=== PATIENT | female | born 1935 | race Hispanic/Latino ===

== ENCOUNTER 2017-04-18 12:01 | Emergency (ER) | payer BC, OTHER ==
[~2017-04-18] VITALS: Ht 157.5 cm; Wt 73.5 kg
[~2017-04-18 12:01] MED LIST: BLOOD PRESSURE PO; METOPROLOL TART25 MG PO; NIFEDIPINE ER30 M1 PO; OMEPRAZOLE40 MG PO; Z NIFEDIPINE PO; Z.0.METOPROLOL TART5 PO; Z.0.OMEPRAZOLE20 M1 PO; Z.0.PENTOXIFYLLINE40 PO; Z.0.SIMVASTATIN40 MG PO
[2017-04-18] MEDS ORDERED: NIFEDIPINE 10 MG CAP SL ONE (12:30)
[2017-04-18] MEDS ORDERED: ONDANSETRON HCL 4 MG ORAL DISINTEGRATING TAB PO ONE (12:30)
--- NOTE | 2017-04-18 13:51 | Diagnostic Imaging Report ---
History:Left-sided headaches Comparison studies:None Technique: Axial images were obtained from the skull base to the vertex. Coronal and sagittal images reconstructed from the axial data. Intravenous contrast: None Findings: Scalp/skull: No abnormalities. Extra-axial spaces: No masses. No fluid collections. Brain sulci: Age-appropriate. Ventricles: Age-appropriate. No hydrocephalus. Parenchyma: Few hypodensities in the supratentorial white matter are small vessel ischemic changes. No masses, hemorrhage, acute or chronic cortical vascular insults. 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 Sellar/suprasellar region: No abnormalities. Craniocervical junction: Patent foramen magnum. No Chiari one malformation. Incidental findings: Atherosclerotic calcifications in the carotid siphons and vertebral arteries. Impression: No acute abnormalities. Chronic findings: 1. Mild supratentorial white matter small vessel ischemic changes. Signed by: DR Richie Wilson M.D. on 04/18/2017 1:47 PM
[2017-04-18 14:36] VITALS: BP 147/81
== END 2017-04-18 14:40 | disposition home or self-care (01) ==
LOC: ER 12:01
DX: G44.89 Other headache syndrome (principal); I10 Essential (primary) hypertension; I73.9 Peripheral vascular disease, unspecified; K21.9 Gastro-esophageal reflux disease without esophagitis
CPT/HCPCS: 70450; 99283

== ENCOUNTER 2018-07-16 10:43 | Emergency (ER) | payer MEDICARE ==
[~2018-07-16] VITALS: Ht 157.5 cm; Wt 68.0 kg
--- OUTSIDE RECORDS SUMMARY | 2018-07-16 10:46 | XMS REPORT | Summary of Care ---
Author Organization Unknown Address Unknown Phone Unavailable Encounter HQ Encntr_maldonadolefty(MAGALI) [id number] Date(s): 12/31/13 - 12/31/13 [facility] [address] Discharge Disposition: Home Physician Attending: Dionte Whipple MD Physician_Referring: Dionte Whipple MD Reason for Visit LLE DX:443.90 - PERIPHERAL VASCULAR DISEASE Problem List No data available for this section Allergies, Adverse Reactions, Alerts Substance Reaction Severity Status penicillins Active Medications No data available for this section Medications Administered During Your Visit No data available for this section Immunizations No data available for this section
--- OUTSIDE RECORDS SUMMARY | 2018-07-16 10:46 | XMS REPORT | Summary of Care ---
Author Author [facility] [place] Organization [facility] [place] Address Unknown Phone Unavailable Encounter HQ Encntr_alias(FIN) [id number] Date(s): 02/22/16 - 02/22/16 [facility] [place] [address] [place] [address] 7 [phone] Discharge Disposition: Home or Self Care Attending Physician: Dionte Whipple MD Vital Signs No data available for this section Problem List No data available for this section Allergies, Adverse Reactions, Alerts Substance Reaction Severity Status penicillins Active Medications No data available for this section Results No data available for this section Immunizations No data available for this section Procedures No data available for this section Social History No data available for this section Assessment and Plan No data available for this section
--- OUTSIDE RECORDS SUMMARY | 2018-07-16 10:46 | XMS REPORT ---
Author Author [facility] Address Unknown Phone Unavailable Care Team Providers Care Lead Warehouse Associate Name Role Phone NIKHILJOSEGutierrezIAN Unavailable Unavailable Problems This patient has no known problems. Allergies, Adverse Reactions, Alerts This patient has no known allergies or adverse reactions. Medications This patient has no known medications. Results Test Description Test Time Test Comments Text Results Atomic Results Result Comments CT BRAIN WO [place] [address] Patient Name: PAULINA FOWLER MR #: [id number] : 1935 Age/Sex: 81/F Req #: [id number] Adm Physician: Ordered by: FATOU TOMPKINS BANQUET LEAD Report #: [id number] Location: ER Room/Bed: Procedure: [id number] CT/CT BRAIN WO Exam Date: 04/18/17 Exam Time: 1300 REPORT STATUS: Signed History:Left-sided headaches Comparison studies:None Technique: Axial images were obtained from the skull base to the vertex. Coronal and sagittal images reconstructed from the axial data. Intravenous contrast: None Findings: Scalp/skull: No abnormalities. Extra-axial spaces: No masses. No fluid collections. Brain sulci: Age-appropriate. Ventricles: Age-appropriate. No hydrocephalus. Parenchyma: Few hypodensities in the supratentorial white matter are small vessel ischemic changes. No masses, hemorrhage, acute or chronic cortical vascular insults. 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 Sellar/suprasellar region: No abnormalities. Craniocervical junction: Patent foramen magnum. No Chiari one malformation. Incidental findings: Atherosclerotic calcifications in the carotid siphons and vertebral arteries. Impression: No acute abnormalities. Chronic findings: 1. Mild supratentorial white matter small vessel ischemic changes. Signed by: DR Richie Wilson M.D. on 04/18/2017 1:47 PM Dictated By: RICHIE VELASQUEZ MD 1347 Transcribed By: KRISTA on 04/18/17 1347 COPY TO: FATOU TOMPKINS NP
--- OUTSIDE RECORDS SUMMARY | 2018-07-16 10:46 | XMS REPORT | Continuity of Care Document ---
Author Author [facility] Address Unknown Phone Unavailable Problems Problem Status Onset Date Classification Date Reported Comments Source J40 - BRONCHITIS, NOT SPECIFIED A Active 03/11/2018 [facility] [place] M81.0 - AGE-RELATED OSTEOPOROSIS W/O C Active 06/14/2017 [facility] [place] R07.9 - "CHEST PAIN, UNSPECIFIED" Active 01/27/2015 [facility] [place] LLE DX:443.90 - PERIPHERAL VASCULAR DIS Active 12/31/2013 [facility] V76.12 - SCREEN MAMMOGRA Active 07/05/2012 [facility] [place] Chest wall pain Active Problem 04/18/2017 [facility] Medications Medication Details Route Status Patient Instructions Ordering Provider Order Date Source Blood Pressure , Oral Daily Active 03/20/2014 [facility] Metoprolol Tartrate 50 Mg Tablet, 50 Mg Oral Twice A Day Active 03/20/2014 [facility] Nifedipine (Nifedipine Er) 60 Mg Tab.osm.24, 60 Mg Oral Daily Active 03/20/2014 [facility] Omeprazole 40 Mg Capsule.dr, 5 Mg Oral Daily Active 03/20/2014 [facility] Metoprolol Tartrate 25 Mg Tablet Bedtime Active [facility] Nifedipine (Nifedipine Er) 30 Mg Tab.er.24 Daily Active [facility] Omeprazole 20 Mg Tablet.dr Daily Active [facility] Pentoxifylline 400 Mg Tablet.sa Three Times A Day Active [facility] Simvastatin 40 Mg Tablet Daily Active [facility] Allergies, Adverse Reactions, Alerts Substance Category Reaction Severity Reaction type Status Date Reported Comments Source Penicillin TREMBLING,MOUTH LAUREANO Mild Allergy to Substance Active 04/18/2017 [facility] Lisinopril Cough Unknown Allergy to Substance Active 04/18/2017 [facility] penicillins Assertion Drug allergy Active [facility] Andersen Immunizations Immunization Date Given Site Status Last Updated Comments Source Results Order Name Results Value Reference Range Date Interpretation Comments Source Spine cervical series DX Spine cervical series DX EXAM: Spine cervical series DX HISTORY: - S13.9XXA Sprain of joints and ligaments of unspecified parts of neck, initial encounter COMPARISON: None AP, lateral and odontoid views of the cervical spine in addition to oblique views. FINDINGS: Slight anterolisthesis of C4 on C5. Prevertebral soft tissues are normal. There are moderate uncovertebral degenerative changes. IMPRESSION: Degenerative changes as above with Slight anterolisthesis of C4 on C5. 06/12/2018 - - Read by: Casimiro Oh MD Dictated Date/time: 06/12/18 13:37 Electronically Signed by: Casimiro Oh MD 06/12/18 13:42 FINAL REPORT SKYLAR Andersen Chest 2 views DX Chest 2 views DX Exam: Two-view chest x-ray Reason for Exam: - J40 Bronchitis, not specified as acute or chronic Comparison Exam: X-ray 02/22/2016 and 03/06/2014 Discussion: Cardiomediastinal silhouette is within normal limits. Both hemidiaphragms well visualized. No pulmonary edema or pleural effusions. Mild atelectasis seen within the lung bases. Trachea is midline. No acute bony abnormalities. Impression: 1. Mild atelectasis seen within the lung bases. 03/11/2018 - - Read by: Kane Ziegler MD Dictated Date/time: 03/11/18 13:18 Electronically Signed by: Kane Ziegler MD 03/11/18 13:21 FINAL REPORT MAG[facility] Andersen Ribs unilateral DX Ribs unilateral DX EXAMINATION: Right ribs unilateral HISTORY: T14.8 Other injury of unspecified body region; anterior and lateral right-sided chest wall pain status post fall FINDINGS: 4 views of the right ribs are performed and compared to left rib and chest radiographs dated 01/27/2015. There are no displaced right-sided rib fractures. There is no right pleural effusion or right-sided pneumothorax. There is atherosclerotic calcification of the aorta. IMPRESSION: 1. No displaced right-sided rib fractures. 2. Atherosclerotic thoracic aorta. 02/22/2016 - - Read by: Franko House MD Dictated Date/time: 02/22/16 11:11 Electronically Signed by: Franko House MD 02/22/16 11:14 FINAL REPORT MAGUE Ganesh Spine lumbar series DX Spine lumbar series DX EXAMINATION: Lumbar spine series HISTORY: W19.XXXA Unspecified fall, initial encounter, T14.8 Other injury of unspecified body region; low back pain status post fall; lumbar facet osteoarthritis FINDINGS: Frontal, lateral, bilateral oblique, and coned views of the lumbar spine are performed without comparison. There is diffuse osteopenia. There is no listhesis of the lumbar spine. The vertebral body heights are normal without compression fracture. There is advanced bilateral lower lumbar facet osteoarthritis, but relatively preserved intervertebral disc spaces. The sacral ala appear intact. There is atherosclerotic calcification of the aorta. IMPRESSION: 1. Advanced bilateral lower lumbar facet osteoarthritis. 2. Diffuse osteopenia of the lumbar spine without compression fracture identified. 3. Atherosclerotic abdominal aorta. 02/22/2016 - - Read by: Franko House MD Dictated Date/time: 02/22/16 11:23 Electronically Signed by: Franko House MD 02/22/16 11:25 FINAL REPORT MAG[facility] Andersen Retroperitoneal Complete US Retroperitoneal Complete US EXAM: Renal ultrasound. CLINICAL HX: N30.00 Acute cystitis without hematuria. Right pelvic and back pain x2 weeks. . TECHNIQUE: Grayscale and Doppler sonogram of the kidneys. COMPARISON: Abdomen ultrasound: 06/08/2015. FINDINGS: Right kidney: Length: 9.6 cm. Cortical thickness: 0.8 cm. Hydronephrosis: Negative. Echogenicity: Within normal limits. Other: None. Left kidney: Length: 9.9 cm. Cortical thickness: 0.8 cm. Hydronephrosis: Negative. Echogenicity: Within normal limits. Other: Question 1.2 cm upper pole cyst. Urinary bladder: Lumen: Unremarkable. Volume: 126 mL. Ureteral jets: Visualized bilaterally. Aorta: Visualized portions are unremarkable. Common iliac artery origins: Not well evaluated. IVC: Visualized portions are unremarkable. Other: None. IMPRESSION: 1. Mild bilateral renal cortical thinning which is nonspecific but can be seen with medical renal disease. 2. Possible left renal cyst. 02/04/2016 - - Read by: Hipolito Gardner MD Dictated Date/time: 02/04/16 17:22 Electronically Signed by: Hipolito Gardner MD 02/04/16 17:26 FINAL REPORT SKYLAR Andersen Abdomen complete US Abdomen complete US Exam: Abdominal Ultrasound Reason for Exam: R10.11 Right upper quadrant pain Comparison Exam: None Discussion: Multiple axial and sagittal images were obtained of the abdomen. The liver is of normal size and echogenicity. No focal hepatic masses identified. No intrahepatic or extrahepatic biliary duct dilation, with the common bile duct measuring 0.2 cm. 2 mm nonmobile echogenic focus seen within the gallbladder, most compatible with a gallbladder polyp. No gallbladder wall thickening or pericholecystic fluid. Sonographic Goodman's sign is negative. The visualized portions of the pancreatic head and proximal body are within normal limits. The spleen is of normal echogenicity measuring 8.2 cm in length. The visualized portions of the upper abdominal aorta and IVC are unremarkable. No evidence seen for ascites. The right and left kidneys measure 8.6 cm and 9.6 cm respectively. They are of normal echogenicity without focal masses, hydronephrosis, or shadowing renal calculi. Impression: 1. 2 mm nonmobile echogenic focus seen within the gallbladder, most compatible with a gallbladder polyp. No evidence seen to suggest cholecystitis. 06/08/2015 - - Read by: Kane Ziegler MD Dictated Date/time: 06/08/15 11:06 Electronically Signed by: Kane Ziegler MD 06/08/15 11:08 FINAL REPORT SKYLAR Andersen Ribs unilateral 3 views w PA chest DX Ribs unilateral 3 views w PA chest DX CHEST PA AND RIB X-RAY SERIES History: 79-year-old with left rib pain. Comparison: 03/06/2014 and 05/09/2013. Findings: The lungs are expanded and no infiltrate, mass or pleural effusion seen. Left lung linear fine density is stable suggesting atelectasis. The cardiomediastinal structures are within normal limits. The left rib cage appears normal without evidence for a displaced injury or fracture. Moderate spine spondylosis and moderate osteoarthritic changes of the left shoulder noted. IMPRESSION: No acute cardiopulmonary abnormality, stable chest x-ray. The left rib cage is unremarkable. 01/27/2015 - - Read by: Felix Larson MD Dictated Date/time: 01/27/15 13:56 Electronically Signed by: Felix Larson 01/27/15 14:02 FINAL REPORT MAGUE Andersen Chest 2 views Chest 2 views Exam: Two-view chest x-ray Reason for Exam: Essential hypertension Comparison Exam: Chest x-ray 04/11/2013 and 05/07/2012 Discussion: Cardiac silhouette is at the upper limits of normal. Mild central vascular congestion. No appreciable pleural effusion or focal lung consolidations. Both hemidiaphragms well-visualized. Trachea is midline. Scattered spondylosis seen within the thoracic spine Impression: 1. No significant interval change. Mild central vascular congestion. 03/06/2014 - - Read by: Kane Ziegler MD Dictated Date/time: 03/06/14 14:48 Electronically Signed by: Kane Ziegler MD 03/06/14 14:50 FINAL REPORT MAGUE Andersen Ext Lower Venous Doppler Unilat US Ext Lower Venous Doppler Unilat US HISTORY: Unspecified peripheral vascular disease. Left lower extremity venous Doppler ultrasound exam demonstrates normal flow and compressibility within the common femoral, superficial femoral popliteal venous segments. Normal distal augmentation. Greater saphenous vein is not visualized. IMPRESSION: No evidence for left lower extremity DVT. SL:13 12/31/2013 - - Read by: Gavin Mathias MD Dictated Date/time: 12/31/13 14:06 Electronically Signed by: Gavin Mathias MD 12/31/13 14:07 FINAL REPORT [facility] Vital Signs Vital Sign Value Date Comments Source Encounters Location Location Details Encounter Type Encounter Number Reason For Visit Attending Provider ADM Date DC Date Status Source [facility] [id number] Dionte Whipple 12/31/2013 01/01/2014 [facility] [place] [facility] [id number] Dionte Whipple 03/06/2014 03/07/2014 MAGUE Andersen [facility] [place] [facility] [id number] Dionte Whipple 01/27/2015 01/28/2015 [facility] Smitha [facility] [place] [facility] [id number] Dionte Whipple 06/08/2015 06/09/2015 [facility] [place] [facility] [place] [facility] [id number] Dionte Whipple 02/04/2016 02/05/2016 [facility] [place] [facility] [place] [facility] [id number] Dionte Whipple 02/22/2016 02/23/2016 [facility] [place] Departed Emergency Room [id number] DEXTER ZIMMER MD 04/18/2017 04/18/2017 [facility] [place] [facility] [id number] Dionte Whipple 06/12/2018 06/13/2018 [facility] [place] Procedures Procedure Code Date Perfomer Comments Source Computed tomography of brain without radiopaque contrast [id number] 04/18/2017 [facility]
--- OUTSIDE RECORDS SUMMARY | 2018-07-16 10:46 | XMS REPORT | Summary of Care ---
Author Author [facility] [place] Organization [facility] [place] Address Unknown Phone Unavailable Encounter HQ Encntr_alilefty(FIN) [id number] Date(s): 02/04/16 - 02/04/16 [facility] [place] [address] [place] [phone] Discharge Disposition: Home or Self Care Attending [...]
--- OUTSIDE RECORDS SUMMARY | 2018-07-16 10:46 | XMS REPORT | Summary of Care ---
Author Organization Unknown Address Unknown Phone Unavailable Encounter HQ Margyr_eric(MAGALI) [id number] Date(s): 03/06/14 - 03/06/14 [facility] Outpatient Imaging - [address] [address] [place] Discharge Disposition: Home Physician Attending: Dionte Whipple MD Reason for Visit 401.0 - MALIGNANT HYPER Problem List No data available for this section Allergies, Adverse Reactions, Alerts Substance Reaction Severity Status penicillins Active Medications No data available for this section Medications Administered During Your Visit No data available for this section Immunizations No data available for this section
--- OUTSIDE RECORDS SUMMARY | 2018-07-16 10:46 | XMS REPORT | Summary of Care ---
Author Author [facility] [place] Organization [facility] [place] Address Unknown Phone Unavailable Encounter HQ Encntr_alilefty(FIN) [id number] Date(s): 06/12/18 - 06/12/18 [facility] [place] [address] [place] [address] [phone] Discharge Disposition: Home or Self Care Attending Physician: Dionte Whipple MD Referring Physician: Dionte Whipple MD Vital Signs No [...]
--- OUTSIDE RECORDS SUMMARY | 2018-07-16 10:46 | XMS REPORT | Summary of Care ---
Author Author [facility] [place] Organization [facility] [place] Address Unknown Phone Unavailable Encounter HQ Encntr_alias(FIN) [id number] Date(s): 01/27/15 - 01/27/15 [facility] [place] [address] [place] [address]- [facility] [phone] Discharge Disposition: Home Attending Physician: Dionte Whipple MD Vital Signs [...]
--- OUTSIDE RECORDS SUMMARY | 2018-07-16 10:46 | XMS REPORT | Summary of Care ---
Author Author [facility] [place] Organization [facility] [place] Address Unknown Phone Unavailable Encounter HQ Encntr_alias(FIN) [id number] Date(s): 06/08/15 - 06/08/15 [facility] [place] [address] [place] [place] [address] [phone] Discharge Disposition: Home Attending Physician: Dionte Whipple [...]
[2018-07-16] MEDS ORDERED: MORPHINE SULFATE 2 MG/ML SYR 1ML IV STA (11:13)
--- NOTE | 2018-07-16 11:48 | Diagnostic Imaging Report ---
EXAM: CXR 1 VIEW - HOPD, AP DATE: 07/16/2018 Time stamp on exam: 11:25 AM INDICATION: Preoperative COMPARISON: None FINDINGS: LINES/TUBES: None LUNGS: No consolidations or edema. PLEURA: No effusions or pneumothorax. HEART AND MEDIASTINUM: Normal size and contour. Calcification within the aorta. BONES AND SOFT TISSUES: No acute findings. Degenerative changes of the spine. IMPRESSION: No acute thoracic abnormality. Signed by: Dr. Jimmy Dubose DO on 07/16/2018 11:45 AM
--- NOTE | 2018-07-16 12:30 | Diagnostic Imaging Report ---
Exam: AP pelvis and coned-down views of the left hip. History: Status post fall Comparison: None available Findings: The bones are osteopenic. There is a nondisplaced fracture of the inferior pubic rami and a slightly displaced fracture of the superior pubic rami. Joint space narrowing of both hips is present. No hip fracture is identified. Incidental notice is calcification within the abdominal aorta suggesting the possibility of a abdominal aortic aneurysm. Impression: Left superior and inferior pubic rami fractures. Signed by: Dr. Jimmy Dubose DO on 07/16/2018 12:27 PM
[2018-07-16 12:58] VITALS: BP 152/79
[2018-07-16] MEDS ORDERED: BENICAR20 MG PO (20:43)
[2018-07-16] MEDS ORDERED: METOPROLOL SUCC25 MG PO (20:57)
[2018-07-16] MEDS ORDERED: PRESERVISION A1 EACH (20:57)
[2018-07-16] MEDS ORDERED: TRAZODONE HCL50 MG PO (20:57)
[2018-07-16] MEDS ORDERED: [UNRECOGNIZED DRUG - OTHER] (20:57)
[2018-07-16] MEDS ORDERED: LATANOPROST 0.005% OU (20:57)
[2018-07-16] MEDS ORDERED: SERTRALINE HCL50 MG PO (20:57)
[2018-07-16] MEDS ORDERED: BACLOFEN10 MG PO (20:57)
[2018-07-16] MEDS ORDERED: ATORVASTATIN CA20 MG PO (20:57)
[2018-07-16] MEDS ORDERED: [UNRECOGNIZED DRUG - OTHER] PO (20:57)
[2018-07-16] MEDS ORDERED: ALENDRONATE SOD70 MG PO (20:57)
[2018-07-16] MEDS ORDERED: ALPRAZOLAM0.25 MG PO (20:58)
== END 2018-07-16 13:02 | disposition home or self-care (01) ==
LOC: FSED 10:43
DX: S32.592A Other specified fracture of left pubis, initial encounter for closed fracture (principal); W01.0XXA Fall on same level from slipping, tripping and stumbling without subsequent striking against object, initial encounter; Y93.01 Activity, walking, marching and hiking; Y92.007 Garden or yard of unspecified non-institutional (private) residence as the place of occurrence of the external cause; I10 Essential (primary) hypertension; E78.00 Pure hypercholesterolemia, unspecified; Z01.818 Encounter for other preprocedural examination
CPT/HCPCS: 71045; 73502; 80053; 85025; 85610; 99284; J2270

== ENCOUNTER 2018-07-16 16:54 | Inpatient (IN) | payer MEDICARE ==
[~2018-07-16] VITALS: Ht 154.9 cm; Wt 76.9 kg
[2018-07-16] MEDS ORDERED: SODIUM CHLORIDE FLUSH 10 ML SYR INJ PRN (18:00)
[2018-07-16] MEDS ORDERED: ONDANSETRON HCL INJ 2MG/ML 2ML 2 MG/ML VIAL IV PRN (18:00)
[2018-07-16] MEDS: MORPHINE SULFATE INJ 4 MG/ML INJ 1ML IV PRN (18:18)
[2018-07-16 19:00] VITALS: BP 185/87
[2018-07-16 20:15] VITALS: BP 169/78
[2018-07-16 20:40] VITALS: BP 185/87
[2018-07-16] MEDS ORDERED: BENICAR20 MG PO (20:43)
[2018-07-16] MEDS ORDERED: [UNRECOGNIZED DRUG - OTHER] PO (20:57)
[2018-07-16] MEDS ORDERED: [UNRECOGNIZED DRUG - OTHER] (20:57)
[2018-07-16] MEDS ORDERED: BACLOFEN10 MG PO (20:57)
[2018-07-16] MEDS ORDERED: ATORVASTATIN CA20 MG PO (20:57)
[2018-07-16] MEDS ORDERED: LATANOPROST 0.005% OU (20:57)
[2018-07-16] MEDS ORDERED: ALENDRONATE SOD70 MG PO (20:57)
[2018-07-16] MEDS ORDERED: PRESERVISION A1 EACH (20:57)
[2018-07-16] MEDS ORDERED: METOPROLOL SUCC25 MG PO (20:57)
[2018-07-16] MEDS ORDERED: SERTRALINE HCL50 MG PO (20:57)
[2018-07-16] MEDS ORDERED: TRAZODONE HCL50 MG PO (20:57)
[2018-07-16] MEDS ORDERED: ALPRAZOLAM0.25 MG PO (20:58)
[2018-07-17] VITALS (7 sets, daily range): BP systolic 137–156; BP diastolic 63–72
[2018-07-17] MEDS: MORPHINE SULFATE INJ 4 MG/ML INJ 1ML IV PRN ×2 (02:47→10:25)
--- NOTE | 2018-07-17 06:40 | NUR ---
H&P cc: fall HPI: [id number], PCP , fell at [facility], with resulting pelvic fx. No cp/sob. Pt has hx osteoporosis. PMH: HTN, HLD, GERD, Osteoporosis, mood d/o, insomnia PSHx: appendectomy Allergies; see emr FH/SH: single; no cigs/illicits/etoh meds; see MAR ROS: no f/c/s/N/V/D/BORGES/vision changes/cp/sob. v/s; revd PE: tired appearing anicteric ns1s2 mod bs soft nt nd no e/t skin dry a&ox3; vincent flat affect labs/med revd A/P: Elderly fall Left pelvic fx Osteoporosis HLD HTN Mood d/o Insomnia PLAN PT pain control restart home meds lovenox BID; ppi SNF thom Briones MD, PhD.
[2018-07-17] MEDS ORDERED: ALPRAZOLAM 0.25 MG TAB PO PRN (06:45)
[2018-07-17] MEDS ORDERED: ZOLPIDEM TARTRATE 5 MG TAB PO PRN (06:45)
[2018-07-17] MEDS ORDERED: ONDANSETRON HCL INJ 2MG/ML 2ML 2 MG/ML VIAL IV PRN (06:45)
--- NOTE | 2018-07-17 07:00 | NUR ---
PT RESTING IN BED COMFORTABLY. AA0X3. NEPALESE SPEAKING PT IS ON RA TOLERATING WELL DENIES ANY SOB PT STATES PAIN AT THIS TIME IS TOLERABLE WHILE LAYING PT ARISES TO 10/10 WHEN MOVING PRN MORPHINE ON CHART FOR PAIN MANAGEMENT. WILL USE ACCORDINGLY PT HAS A RIGHT FA 20 SL PATENT AND DRY WILL CONTINUE TO MONITOR PT AT THIS TIME SIDE RAILSX2, BED WHEELS LOCKED, CALL LIGHT IS WITHIN EASY REACH, INSTRUCTED TO CALL FOR ASSISTANCE IF NEEDED
[2018-07-17 07:24] LABS: BASOPHILS % 0.2 % (0.0-1.0); EOSINOPHILS # (AUTO) 0.6 (0.0-0.4); EOSINOPHILS % 4.5 % (0.0-6.0); HEMATOCRIT 40.4 % (34.2-44.1); LYMPHOCYTES # (AUTO) 2.4 (1.0-3.2); LYMPHOCYTES % 19.7 % (18.0-39.1); MEAN CORPUSCULAR HEMOGLOBIN 29.8 pg (28-32); MEAN CORPUSCULAR HGB CONC 32.2 g/dL (31-35); MEAN CORPUSCULAR VOLUME 92.7 fL (81-99); MONOCYTES # (AUTO) 0.9 (0.2-0.8); NEUTROPHILS # (AUTO) 8.4 (2.1-6.9); NEUTROPHILS % 68.2 % (38.7-80.0); PLATELET COUNT 177 x10e3/uL (140-360); RED BLOOD COUNT 4.36 x10e6/uL (3.6-5.1); RED CELL DISTRIBUTION WIDTH 13.8 % (11.7-14.4)
[2018-07-17 07:41] LABS: CALCIUM 9.3 mg/dL (8.4-10.2); CHOL/HDL RATIO 2.6 (3.0-3.6); CREATININE, SERUM 1.6 mg/dL (0.57-1.11); MAGNESIUM 2.3 MG/DL (1.3-2.1); PHOSPHORUS 3.3 MG/DL (2.3-4.7)
[2018-07-17 08:02] LABS: THYROID STIMULATING HORMONE 1.812 uIU/mL (0.350-4.940)
--- NOTE | 2018-07-17 08:30 | NUR ---
UPON ADMINISTERING MORNING MEDICATION PT STATES SHE TOOK HER OWN MEDS FROM HOME NOTIFIED PT THAT WHEN HOSPITALIZED WE LIKE TO MONITOR MEDICATION ADMINISTRATION HERE. PT VERBALIZED UNDERSTANDING. STATES SHE WILL NOT TAKE HOME MEDICATIONS ANYMORE HOME MEDS PLACED IN DRAWER BY BEDSIDE
[2018-07-17] MEDS: OLMESARTAN 20 MG TAB PO SCH (08:51)
[2018-07-17] MEDS: GABAPENTIN 100 MG CAP PO SCH ×3 (08:52→21:00)
[2018-07-17] MEDS: NIFEDIPINE CR 30 MG TAB PO SCH (08:52)
[2018-07-17] MEDS: OMEPRAZOLE 20 MG CAP PO SCH (08:52)
[2018-07-17] MEDS: SERTRALINE HCL 50 MG TAB PO SCH (08:52)
[2018-07-17] MEDS: SENNOSIDES 8.6 MG TAB PO SCH (08:52)
[2018-07-17 08:56] LABS: BILIRUBIN,URINE NEGATIVE (NEGATIVE); CLARITY,URINE CLOUDY (CLEAR); COLOR,URINE YELLOW (YELLOW); KETONES,URINE NEGATIVE (NEGATIVE); LEUKOCYTE ESTERASE ,URINE 2+ (NEGATIVE); NITRITE,URINE NEGATIVE (NEGATIVE); PROTEIN,URINE DIPSTICK TRACE (NEGATIVE); URINE UROBILINOGEN 0.2 mg/dL (0.2 - 1)
[2018-07-17] MEDS ORDERED: SIMVASTATIN 40 MG TAB PO SCH (09:00)
[2018-07-17 09:03] LABS: BACTERIA,URINE MANY /HPF; EPITHELIAL CELLS,URINE RARE /LPF; WBC,URINE (MAN) 21-50 /HPF (0-5)
[2018-07-17 09:57] LABS: CLARITY,URINE CLOUDY (CLEAR); COLOR,URINE YELLOW (YELLOW); LEUKOCYTE ESTERASE ,URINE 2+ (NEGATIVE); NITRITE,URINE POSITIVE (NEGATIVE); PROTEIN,URINE DIPSTICK 1+ (NEGATIVE)
[2018-07-17 09:58] LABS: BACTERIA,URINE MANY /HPF; BILIRUBIN,URINE 2+ (NEGATIVE); EPITHELIAL CELLS,URINE RARE /LPF; KETONES,URINE NEGATIVE (NEGATIVE); RBC,URINE 0-5 /HPF (0-5); URINE UROBILINOGEN 0.2 mg/dL (0.2 - 1); WBC,URINE (MAN) >50 /HPF (0-5)
--- NOTE | 2018-07-17 10:14 | NUR ---
EDUCATED ABOUT IMM, SIGNED, FILED IN CHART, WITH COPY LEFT WITH FAMILY AT BEDSIDE. SPOKE WITH FAMILY BOUT SNF OPTIONS GAVE IN NETWORK FACILITIES [facility], [facility], [facility], [facility], [facility], [facility] AND [facility]. SON STATES HAD BAD EXPERIENCES BEFORE AT 2 FACILITIES AND DOES NOT WANT TO AGREE TO ANYTHING UNTIL THEY GO LOOK.
--- NOTE | 2018-07-17 10:17 | NUR ---
CALLED MD VILLAVICENCIO REGARDING PT UA RESULTS NO ANSWER, UNABLE TO LEAVE VOICEMAIL. INBOX IS FULL WILL ATTEMPT TO CALL AT LATER TIME
--- NOTE | 2018-07-17 10:45 | NUR ---
SPOKE WITH MD VILLAVICENCIO REGARDING UA. NEW ORDERS FOR ABX RECEIVED
[2018-07-17] MEDS ORDERED: SODIUM CHLORIDE 0.9% 250ML 250 ML ONE (12:12)
[2018-07-17] MEDS: LEVOFLOXACIN 500MG/D5W 100ML 100 ML IV SCH (12:24)
[2018-07-17] MEDS: ENOXAPARIN SOD INJ 40 MG/0.4 ML SYR SC SCH (16:40)
--- NOTE | 2018-07-17 17:34 | NUR ---
ALLYVIN SACRUM DRESSING, AIR MATTRESS, AND WEDGE PLACED FOR PRESSURE ULCER PREVENTION AT THIS TIME
[2018-07-17] MEDS: HYDROCODONE/APAP 7.5MG-325MG 1 EA TAB PO PRN (17:35)
[2018-07-17] MEDS: ATORVASTATIN 40 MG TAB PO SCH (21:00)
[2018-07-17] MEDS ORDERED: ATORVASTATIN 20 MG TAB PO SCH (21:00)
[2018-07-17] MEDS: TRAZODONE HCL 50 MG TAB PO SCH (21:00)
[2018-07-18] VITALS (7 sets, daily range): BP systolic 113–167; BP diastolic 55–83
[2018-07-18] MEDS: HYDROCODONE/APAP 7.5MG-325MG 1 EA TAB PO PRN ×2 (01:48→20:00)
--- NOTE | 2018-07-18 06:26 | NUR ---
CHANGED PUREWICK CATHETER AT THIS TIME
--- NOTE | 2018-07-18 07:00 | NUR ---
PT RESTING IN BED AA0X3, CYMRO SPEAKING PT IS RESTING COMFORTABLY IN BED , DENIES PAIN PT HAS AN IV TO HER RIGHT FA NOT PATENT WILL START NEW IV FOR PT WILL CONTINUE TO MONITOR PT CLOSELY, SIDE RAILSX2, BED WHEELS LOCKED, CALL LIGHT IS WITHIN EASY REACH, INSTRUCTED TO CALL FOR ASSISTANCE IF NEEDED
--- NOTE | 2018-07-18 07:10 | NUR ---
IM- progress note O/N; no events ROS: no f/c/s/N/V/D/BORGES/vision changes/cp/sob. v/s; revd PE: tired appearing anicteric ns1s2 mod bs soft nt nd no e/t skin dry a&ox3; vincent flat affect labs/med revd A/P: Elderly fall Left pelvic fx Osteoporosis HLD HTN Mood d/o Insomnia PLAN PT pain control restart home meds lovenox BID; ppi SNF eval UTI- levaquin; [facility]- IVF; check labs; Duke Briones MD, PhD.
[2018-07-18] MEDS: MORPHINE SULFATE INJ 4 MG/ML INJ 1ML IV PRN ×2 (07:13→13:04)
[2018-07-18] MEDS: GABAPENTIN 100 MG CAP PO SCH ×3 (07:58→21:00)
[2018-07-18] MEDS: OMEPRAZOLE 20 MG CAP PO SCH (07:58)
[2018-07-18] MEDS: SENNOSIDES 8.6 MG TAB PO SCH (07:59)
[2018-07-18] MEDS: NIFEDIPINE CR 30 MG TAB PO SCH (07:59)
[2018-07-18] MEDS: SERTRALINE HCL 50 MG TAB PO SCH (07:59)
[2018-07-18 08:43] LABS: BASOPHILS % 0.3 % (0.0-1.0); EOSINOPHILS # (AUTO) 0.6 (0.0-0.4); EOSINOPHILS % 5.3 % (0.0-6.0); HEMOGLOBIN 12.6 g/dL (12.0-16.0); LYMPHOCYTES # (AUTO) 2.4 (1.0-3.2); LYMPHOCYTES % 21.8 % (18.0-39.1); MEAN CORPUSCULAR HEMOGLOBIN 30.1 pg (28-32); MEAN CORPUSCULAR HGB CONC 32.3 g/dL (31-35); MEAN CORPUSCULAR VOLUME 93.3 fL (81-99); MONOCYTES # (AUTO) 0.8 (0.2-0.8); MONOCYTES % 6.7 % (4.4-11.3); NEUTROPHILS # (AUTO) 7.3 (2.1-6.9); NEUTROPHILS % 65.5 % (38.7-80.0); PLATELET COUNT 165 x10e3/uL (140-360); RED BLOOD COUNT 4.18 x10e6/uL (3.6-5.1); RED CELL DISTRIBUTION WIDTH 13.5 % (11.7-14.4)
[2018-07-18] MEDS: SODIUM CHLORIDE 0.9% 1000ML 1,000 ML IV SCH (09:00)
[2018-07-18 09:07] LABS: ANION GAP 12.7 mmol/L (8-16); CREATININE, SERUM 1.58 mg/dL (0.57-1.11); POTASSIUM 4.7 mmol/L (3.5-5.1)
--- NOTE | 2018-07-18 09:18 | NUR ---
CALLED [facility] [phone] LEFT MESSAGE TO RETURN CALL FOR SELECTION FOR SNF.
[2018-07-18] MEDS: LEVOFLOXACIN 500MG/D5W 100ML 100 ML IV SCH (12:00)
[2018-07-18] MEDS: OLMESARTAN 20 MG TAB PO SCH (12:12)
--- NOTE | 2018-07-18 12:20 | NUR ---
REPORT GIVEN TO MIRELLA IN MED SURG 2 . PT GOING TO ROOM 204
--- NOTE | 2018-07-18 12:21 | NUR ---
RECEIVED PT AAOX 3. BED ALARM IS ON. CALL DOLAN WITH IN REACH. BED IS LOCKED AND AT LOWEST POSITION.PT DENIES NEEDS AT THIS TIME.
[2018-07-18] MEDS: ENOXAPARIN SOD INJ 40 MG/0.4 ML SYR SC SCH (17:00)
--- NOTE | 2018-07-18 18:50 | NUR ---
PT COMPLAINT OF CONSTIPATION. CALLED DR SAUD HAYNES. NEW ORDER RECEIVED FOR 100 MG COLACE PO BID
--- NOTE | 2018-07-18 19:00 | NUR ---
BEDSIDE SHIFT REPORT GIVEN TO RADIO CONTROL CRANE OPERATOR RN. PT DENIED FURTHER NEEDS.
[2018-07-18] MEDS ORDERED: DOCUSATE SODIUM 100 MG CAP PO ONE (19:15)
--- NOTE | 2018-07-18 20:01 | NUR ---
ABDOMEN LARGE AND DISTENDED WITH BOWEL SOUNDS PRESENT. COLACE ADMINISTERED ORDERED, WARM PRUNE JUICE ALSO GIVEN TO THE PATIENT. SHE C/O PAIN TO THE PELVIC WITH PAIN SCORE #4, MEDICATED WITH NORCO 1TAB ORDERED. CALL LIGHT WITHIN EASY REACH, FAMILY MEMBERS VISITING WITH THE PATIENT.
[2018-07-18] MEDS: TRAZODONE HCL 50 MG TAB PO SCH (21:00)
[2018-07-18] MEDS: ATORVASTATIN 40 MG TAB PO SCH (21:00)
[2018-07-19] VITALS (7 sets, daily range): BP systolic 122–162; BP diastolic 55–91
[2018-07-19] MEDS: SODIUM CHLORIDE 0.9% 1000ML 1,000 ML IV SCH ×2 (00:25→11:04)
--- NOTE | 2018-07-19 00:42 | NUR ---
PATIENT RESTING QUIETLY IN BED, SHE DENIES PAIN AT THIS TIME. PURE WICK INTACT AND DRAINING WELL. CALL LIGHT WITHIN EASY REACH, SHE'S INSTRUCTED TO CALL FOR ASSISTANCE NEEDED.
[2018-07-19] MEDS: HYDROCODONE/APAP 7.5MG-325MG 1 EA TAB PO PRN ×3 (05:59→22:04)
--- NOTE | 2018-07-19 06:00 | NUR ---
PATIENT ASSISTED ON THE BEDPAN, SHE DID NOT HAVE BOWEL MOVEMENT HOWEVER SHE URINATED. SHE'S KEPT CLEAN AND DRY, REPOSITION FOR COMFORT. SHE C/O SEVERE PAIN TO THE PELVIC BUT REFUSED MORPHINE. MEDICATED WITH NORCO 1TAB ORDERED, CALL LIGHT WITHIN EASY REACH, SHE'S INSTRUCTED TO CALL FOR ASSISTANCE NEEDED.
--- NOTE | 2018-07-19 06:52 | NUR ---
IM- progress note O/N; no events ROS: no f/c/s/N/V/D/BORGES/vision changes/cp/sob. v/s; revd PE: tired appearing anicteric ns1s2 mod bs soft nt nd no e/t skin dry a&ox3; vincent flat affect labs/med revd A/P: Elderly fall Left pelvic fx Osteoporosis HLD HTN Mood d/o Insomnia PLAN PT pain control restart home meds lovenox BID; ppi SNF eval UTI- levaquin; MARLON- IVF; check labs; 07/19 check labs ; GNR UTI Duke Briones MD, PhD.
[2018-07-19 07:21] LABS: BASOPHILS % 0.3 % (0.0-1.0); EOSINOPHILS # (AUTO) 0.5 (0.0-0.4); EOSINOPHILS % 4.3 % (0.0-6.0); HEMATOCRIT 35.5 % (34.2-44.1); HEMOGLOBIN 11.6 g/dL (12.0-16.0); LYMPHOCYTES # (AUTO) 1.6 (1.0-3.2); LYMPHOCYTES % 15.3 % (18.0-39.1); MEAN CORPUSCULAR HEMOGLOBIN 30.1 pg (28-32); MEAN CORPUSCULAR HGB CONC 32.7 g/dL (31-35); MEAN CORPUSCULAR VOLUME 92.2 fL (81-99); MONOCYTES # (AUTO) 0.8 (0.2-0.8); MONOCYTES % 7.1 % (4.4-11.3); NEUTROPHILS # (AUTO) 7.7 (2.1-6.9); NEUTROPHILS % 72.6 % (38.7-80.0); PLATELET COUNT 156 x10e3/uL (140-360); RED BLOOD COUNT 3.85 x10e6/uL (3.6-5.1); RED CELL DISTRIBUTION WIDTH 13.4 % (11.7-14.4)
[2018-07-19 07:43] LABS: ANION GAP 10.8 mmol/L (8-16); CALCIUM 8.5 mg/dL (8.4-10.2); CREATININE, SERUM 1.46 mg/dL (0.57-1.11); POTASSIUM 4.8 mmol/L (3.5-5.1)
--- NOTE | 2018-07-19 08:01 | NUR ---
CALLED AND LEFT MESSAGE FOR RETURN CALL TO VALDO GALVEZ [phone] AND AL KEVYNCy FOWLER [phone]
--- NOTE | 2018-07-19 08:08 | NUR ---
AL FOWLER CALLED BACK AND [facility] [place] CALLED REP TO COME SPRIGGER
[2018-07-19] MEDS: OLMESARTAN 20 MG TAB PO SCH (09:25)
[2018-07-19] MEDS: SERTRALINE HCL 50 MG TAB PO SCH (09:25)
[2018-07-19] MEDS: GABAPENTIN 100 MG CAP PO SCH ×3 (09:25→22:04)
[2018-07-19] MEDS: NIFEDIPINE CR 30 MG TAB PO SCH (09:25)
[2018-07-19] MEDS: OMEPRAZOLE 20 MG CAP PO SCH (09:25)
[2018-07-19] MEDS: MAGNESIUM HYDROXIDE 30 ML UDC PO SCH (09:25)
[2018-07-19] MEDS: SENNOSIDES 8.6 MG TAB PO SCH (09:25)
[2018-07-19] MEDS: DOCUSATE SODIUM 100 MG CAP PO SCH ×2 (09:25→17:02)
[2018-07-19] MEDS: LEVOFLOXACIN 500MG/D5W 100ML 100 ML IV SCH (11:01)
--- NOTE | 2018-07-19 11:31 | NUR ---
SPOKE WITH [facility] THEY ARE NOT ABLE TO GET BENEFITS AT THIS TIME, CALLED AND SPOKE WITH SON KEVYN [phone] AND HE STATES IT IS OKAY TO PROCEED WITH REFERRAL. FILLED OUT RTF PASRR AND GOT CLINICALS TO FACILITY FOR REVIEW.
[2018-07-19] MEDS: MEROPENEM 500MG/ NS 50ML 50 ML IV SCH (17:02)
[2018-07-19] MEDS: ENOXAPARIN SOD INJ 40 MG/0.4 ML SYR SC SCH (17:02)
[2018-07-19] MEDS: TRAZODONE HCL 50 MG TAB PO SCH (22:04)
[2018-07-19] MEDS: ATORVASTATIN 40 MG TAB PO SCH (22:04)
--- NOTE | 2018-07-19 22:07 | NUR ---
PATIENT JUST GOT OUT OF THE SHOWER, SHE'S NOW RESTING IN BED WITHOUT RESPIRATORY DISTRESS OBSERVED. SHE C/O PAIN TO THE PELVIC WITH PAIN SCORE #8, MEDICATED WITH NORCO 1TAB ORDERED. CALL LIGHT WITHIN EASY REACH, FAMILY MEMBER VISITING WITH THE PATIENT.
[2018-07-20] VITALS (8 sets, daily range): BP systolic 144–173; BP diastolic 68–78
[2018-07-20] MEDS: HYDROCODONE/APAP 7.5MG-325MG 1 EA TAB PO PRN ×3 (04:20→23:10)
--- NOTE | 2018-07-20 04:20 | NUR ---
PATIENT ASSISTED ON THE BEDPAN, NO BM EXCEPT URINE. SHE'S KEPT CLEAN AND DRY, REPOSITION FOR COMFORT. SHE C/O PAIN TO THE PELVIC WITH PAIN SCORE #8, MEDICATED WITH NORCO 1TAB ORDERED. CALL LIGHT WITHIN EASY REACH, SHE'S INSTRUCTED TO CALL FOR ASSISTANCE NEEDED.
[2018-07-20] MEDS: MEROPENEM 500MG/ NS 50ML 50 ML IV SCH ×2 (06:42→18:07)
[2018-07-20] MEDS: SODIUM CHLORIDE 0.9% 1000ML 1,000 ML IV SCH ×2 (07:41→22:50)
[2018-07-20] MEDS: NIFEDIPINE CR 30 MG TAB PO SCH (08:43)
[2018-07-20] MEDS: SENNOSIDES 8.6 MG TAB PO SCH (08:43)
[2018-07-20] MEDS: MAGNESIUM HYDROXIDE 30 ML UDC PO SCH (08:43)
[2018-07-20] MEDS: OMEPRAZOLE 20 MG CAP PO SCH (08:43)
[2018-07-20] MEDS: GABAPENTIN 100 MG CAP PO SCH ×3 (08:43→20:12)
[2018-07-20] MEDS: DOCUSATE SODIUM 100 MG CAP PO SCH ×2 (08:43→16:55)
[2018-07-20] MEDS: SERTRALINE HCL 50 MG TAB PO SCH (08:43)
[2018-07-20] MEDS: OLMESARTAN 20 MG TAB PO SCH (08:43)
[2018-07-20] MEDS: TRAMADOL HCL 50 MG TAB PO PRN ×2 (10:06→20:14)
--- NOTE | 2018-07-20 13:00 | NUR ---
IM- progress note O/N; no events ROS: no f/c/s/N/V/D/BOREGS/vision changes/cp/sob. v/s; revd PE: tired appearing anicteric ns1s2 mod bs soft nt nd no e/t skin dry a&ox3; vincent flat affect labs/med revd A/P: Elderly fall Left pelvic fx Osteoporosis HLD HTN Mood d/o Insomnia PLAN PT pain control restart home meds lovenox BID; ppi SNF eval UTI- levaquin; MARLON- IVF; check labs; 07/19 check labs ; GNR UTI 07/20 cont care; ESBL e.coli UTI- merrem; needs 14 days merrem in snf; cont PT. Duke Briones MD, PhD.
[2018-07-20] MEDS: ENOXAPARIN SOD INJ 40 MG/0.4 ML SYR SC SCH (16:55)
[2018-07-20] MEDS: ATORVASTATIN 40 MG TAB PO SCH (20:12)
[2018-07-20] MEDS: TRAZODONE HCL 50 MG TAB PO SCH (20:12)
--- NOTE | 2018-07-20 20:19 | NUR ---
PATIENT SITTING ON THE BEDSIDE COMMODE, SHE C/O PAIN TO THE PELVIC WITH PAIN SCORE #6, MEDICATED WITH TRAMADOL ORDERED. CALL LIGHT WITHIN EASY REACH, SHE'S INSTRUCTED TO CALL FOR ASSISTANCE UPON COMPLETION SO THAT SHE CAN BE ASSISTED BACK TO BED.
--- NOTE | 2018-07-20 23:10 | NUR ---
PATIENT ASSISTED ON THE BEDPAN TO VOID, SHE'S KEPT CLEAN AND DRY. REPOSITION FOR COMFORT WITH CALL LIGHT IN EASY REACH. PATIENT C/O PAIN TO THE PELVIC WITH PAIN SCORE #8, MEDICATED WITH NORCO 1TAB ORDERED.
[2018-07-21] VITALS (7 sets, daily range): BP systolic 134–191; BP diastolic 64–84
--- NOTE | 2018-07-21 00:03 | NUR ---
PATIENT IS SOUNDLY ASLEEP, SHE'S EASY TO AROUSE. NO DISTRESS OBSERVED, CALL LIGHT WITHIN EASY REACH AND BED ALARM ON.
--- NOTE | 2018-07-21 04:10 | NUR ---
PATIENT ASSISTED WITH ADLS, SHE HAS SOME PAIN TO THE PELVIC BUT REFUSED PAIN MEDICATION AT THIS TIME.
[2018-07-21] MEDS: MEROPENEM 500MG/ NS 50ML 50 ML IV SCH ×2 (06:38→17:36)
--- NOTE | 2018-07-21 06:55 | NUR ---
IM- progress note O/N; no events ROS: no f/c/s/N/V/D/BORGES/vision changes/cp/sob. v/s; revd PE: tired appearing anicteric ns1s2 mod bs soft nt nd no e/t skin dry a&ox3; vincent flat affect labs/med revd A/P: Elderly fall Left pelvic fx Osteoporosis HLD HTN Mood d/o Insomnia PLAN PT pain control restart home meds lovenox BID; ppi SNF eval UTI- levaquin; MARLON- IVF; check labs; 07/19 check labs ; GNR UTI 07/20 cont care; ESBL e.coli UTI- merrem; needs 14 days merrem in snf; cont PT. 07/21 Uncontrolled HTN- add BB. MARLON- POA; increase fluids to 75, add bicarbs for Metabolic acidosis. Central line; D# 05/09 merrem. Duke Briones MD, PhD.
[2018-07-21] MEDS: MAGNESIUM HYDROXIDE 30 ML UDC PO SCH (09:49)
[2018-07-21] MEDS: DOCUSATE SODIUM 100 MG CAP PO SCH ×2 (09:49→17:36)
[2018-07-21] MEDS: OLMESARTAN 20 MG TAB PO SCH (09:49)
[2018-07-21] MEDS: SODIUM BICARBONATE 650 MG TAB PO SCH ×2 (09:50→17:36)
[2018-07-21] MEDS: SENNOSIDES 8.6 MG TAB PO SCH (09:50)
[2018-07-21] MEDS: NIFEDIPINE CR 30 MG TAB PO SCH (09:50)
[2018-07-21] MEDS: GABAPENTIN 100 MG CAP PO SCH ×3 (09:50→20:34)
[2018-07-21] MEDS: OMEPRAZOLE 20 MG CAP PO SCH (09:50)
[2018-07-21] MEDS: LABETALOL HCL 100 MG TAB PO SCH ×2 (09:50→20:34)
[2018-07-21] MEDS: SERTRALINE HCL 50 MG TAB PO SCH (09:51)
[2018-07-21] MEDS: HYDROCODONE/APAP 7.5MG-325MG 1 EA TAB PO PRN ×2 (14:20→20:36)
[2018-07-21] MEDS: SODIUM CHLORIDE 0.9% 1000ML 1,000 ML IV SCH (16:10)
[2018-07-21] MEDS ORDERED: ONDANSETRON HCL 4 MG ORAL DISINTEGRATING TAB PO PRN (17:15)
[2018-07-21] MEDS: ENOXAPARIN SOD INJ 40 MG/0.4 ML SYR SC SCH (17:36)
[2018-07-21] MEDS: TRAZODONE HCL 50 MG TAB PO SCH (20:34)
[2018-07-21] MEDS: ATORVASTATIN 40 MG TAB PO SCH (20:34)
[2018-07-21] MEDS: NYSTATIN SUSPENSION 5 ML UDC PO SCH (21:53)
[2018-07-22] VITALS (8 sets, daily range): BP systolic 129–194; BP diastolic 61–86
[2018-07-22] MEDS: SODIUM CHLORIDE 0.9% 1000ML 1,000 ML IV SCH ×2 (05:41→19:01)
[2018-07-22] MEDS: MEROPENEM 500MG/ NS 50ML 50 ML IV SCH ×2 (05:42→16:19)
[2018-07-22] MEDS: NYSTATIN SUSPENSION 5 ML UDC PO SCH ×3 (05:42→20:10)
--- NOTE | 2018-07-22 07:30 | NUR ---
REC'D PT AAOX3, PT ON RA, BSC AT BEDSIDE, IV TO LEFT AC 20 GAUGE WITHOUT ANY COMPLICATIONS. ASSISTED PATIENT TO THE BSC. SIDE RAILS UP X2, CALL DOLAN WITHIN REACH, AND BED IN LOWEST POSITION.
[2018-07-22 07:57] LABS: PARTIAL THROMBOPLASTIN TIME 37.3 seconds (23.8-35.5); PROTHROMBIN TIME 13.7 seconds (11.9-14.5)
[2018-07-22] MEDS: OLMESARTAN 20 MG TAB PO SCH (08:41)
[2018-07-22] MEDS: OMEPRAZOLE 20 MG CAP PO SCH (08:41)
[2018-07-22] MEDS: GABAPENTIN 100 MG CAP PO SCH ×3 (08:41→20:10)
[2018-07-22] MEDS: DOCUSATE SODIUM 100 MG CAP PO SCH ×2 (08:41→16:18)
[2018-07-22] MEDS: NIFEDIPINE CR 30 MG TAB PO SCH (08:42)
[2018-07-22] MEDS: SERTRALINE HCL 50 MG TAB PO SCH (08:42)
[2018-07-22] MEDS: SODIUM BICARBONATE 650 MG TAB PO SCH ×2 (08:42→16:19)
[2018-07-22] MEDS: LABETALOL HCL 100 MG TAB PO SCH ×2 (08:43→20:10)
[2018-07-22] MEDS: HYDROCODONE/APAP 7.5MG-325MG 1 EA TAB PO PRN ×3 (08:58→22:45)
[2018-07-22] MEDS: MAGNESIUM HYDROXIDE 30 ML UDC PO SCH (09:00)
[2018-07-22] MEDS: SENNOSIDES 8.6 MG TAB PO SCH (09:00)
--- NOTE | 2018-07-22 10:11 | NUR ---
EDUCATED ABOUT IMM, SIGNED, FILED IN CHART, WITH COPY LEFT WITH FAMILY AT BEDSIDE.
--- NOTE | 2018-07-22 15:13 | NUR ---
IM- progress note O/N; no events ROS: no f/c/s/N/V/D/BORGES/vision changes/cp/sob. v/s; revd PE: tired appearing anicteric ns1s2 mod bs soft nt nd no e/t skin dry a&ox3; vincent flat affect labs/med revd A/P: Elderly fall Left pelvic fx Osteoporosis HLD HTN Mood d/o Insomnia PLAN PT pain control restart home meds lovenox BID; ppi SNF eval UTI- levaquin; MARLON- IVF; check labs; 07/19 check labs ; GNR UTI 07/20 cont care; ESBL e.coli UTI- merrem; needs 14 days merrem in snf; cont PT. 07/21 Uncontrolled HTN- add BB. MARLON- POA; increase fluids to 75, add bicarbs for Metabolic acidosis. Central line; D# 05/09 merrem. 07/22 check labs; D#4 abx. Duke Briones MD, PhD.
[2018-07-22] MEDS ORDERED: NIFEDIPINE CR 30 MG TAB PO SCH (15:15)
[2018-07-22 16:03] LABS: BASOPHILS % 0.4 % (0.0-1.0); EOSINOPHILS # (AUTO) 0.6 (0.0-0.4); EOSINOPHILS % 5.8 % (0.0-6.0); HEMATOCRIT 33.5 % (34.2-44.1); HEMOGLOBIN 10.9 g/dL (12.0-16.0); LYMPHOCYTES # (AUTO) 2.5 (1.0-3.2); LYMPHOCYTES % 25.1 % (18.0-39.1); MEAN CORPUSCULAR HEMOGLOBIN 29.9 pg (28-32); MEAN CORPUSCULAR HGB CONC 32.5 g/dL (31-35); MEAN CORPUSCULAR VOLUME 91.8 fL (81-99); MONOCYTES # (AUTO) 1.1 (0.2-0.8); MONOCYTES % 10.9 % (4.4-11.3); NEUTROPHILS # (AUTO) 5.8 (2.1-6.9); NEUTROPHILS % 57.3 % (38.7-80.0); PLATELET COUNT 174 x10e3/uL (140-360); RED BLOOD COUNT 3.65 x10e6/uL (3.6-5.1); RED CELL DISTRIBUTION WIDTH 13.9 % (11.7-14.4)
[2018-07-22 16:19] LABS: ANION GAP 11.2 mmol/L (8-16); CALCIUM 8.6 mg/dL (8.4-10.2); CREATININE, SERUM 1.49 mg/dL (0.57-1.11)
[2018-07-22] MEDS: ENOXAPARIN SOD INJ 40 MG/0.4 ML SYR SC SCH (16:19)
[2018-07-22 16:21] LABS: POTASSIUM 5.2 mmol/L (3.5-5.1)
--- NOTE | 2018-07-22 18:40 | NUR ---
PT IS SITTING ON RECLINER CHAIR WITH NO S/S OF DISTRESS. CALL DOLAN WITHIN REACH.
[2018-07-22] MEDS: ATORVASTATIN 40 MG TAB PO SCH (20:10)
[2018-07-22] MEDS: TRAZODONE HCL 50 MG TAB PO SCH (20:10)
[2018-07-23] VITALS (9 sets, daily range): BP systolic 117–183; BP diastolic 57–81
[2018-07-23] MEDS: MEROPENEM 500MG/ NS 50ML 50 ML IV SCH ×2 (05:40→17:55)
[2018-07-23] MEDS: NYSTATIN SUSPENSION 5 ML UDC PO SCH ×3 (05:40→21:59)
--- NOTE | 2018-07-23 06:38 | NUR ---
IM- progress note O/N; no events ROS: no f/c/s/N/V/D/BORGES/vision changes/cp/sob. v/s; revd PE: tired appearing anicteric ns1s2 mod bs soft nt nd no e/t skin dry a&ox3; vincent flat affect labs/med revd A/P: Elderly fall Left pelvic fx Osteoporosis HLD HTN Mood d/o Insomnia PLAN PT pain control restart home meds lovenox BID; ppi SNF eval UTI- levaquin; MARLON- IVF; check labs; 07/19 check labs ; GNR UTI 07/20 cont care; ESBL e.coli UTI- merrem; needs 14 days merrem in snf; cont PT. 07/21 Uncontrolled HTN- add BB. MARLON- POA; increase fluids to 75, add bicarbs for Metabolic acidosis. Central line; D# 3 merrem. 07/22 check labs; D#4 abx. 07/23 cont care; check K Duke Briones MD, PhD.
--- NOTE | 2018-07-23 07:10 | NUR ---
REC'D PT ASLEEP WITH CHEST RISING UP AND DOWN EFFORTLESSLY. PT ON ROOM AIR AND NO S/S OF DISTRESS. IV TO RIGHT AC DRY AND INTACT. BED IN LOWEST POSITION, SIDE RAILS UP X2, AND CALL DOLAN WITHIN REACH.
[2018-07-23] MEDS: SODIUM CHLORIDE 0.9% 1000ML 1,000 ML IV SCH ×2 (08:21→21:41)
[2018-07-23] MEDS: SENNOSIDES 8.6 MG TAB PO SCH (09:00)
[2018-07-23] MEDS: MAGNESIUM HYDROXIDE 30 ML UDC PO SCH (09:00)
[2018-07-23] MEDS: DOCUSATE SODIUM 100 MG CAP PO SCH ×2 (09:00→17:00)
[2018-07-23] MEDS: OLMESARTAN 20 MG TAB PO SCH (09:50)
[2018-07-23] MEDS: OMEPRAZOLE 20 MG CAP PO SCH (09:51)
[2018-07-23] MEDS: GABAPENTIN 100 MG CAP PO SCH ×3 (09:51→21:59)
[2018-07-23] MEDS: NIFEDIPINE CR 30 MG TAB PO SCH (09:52)
[2018-07-23] MEDS: SODIUM BICARBONATE 650 MG TAB PO SCH ×2 (09:52→17:53)
[2018-07-23] MEDS: LABETALOL HCL 100 MG TAB PO SCH ×2 (09:52→21:59)
[2018-07-23] MEDS: SERTRALINE HCL 50 MG TAB PO SCH (09:52)
[2018-07-23] MEDS: HYDROCODONE/APAP 7.5MG-325MG 1 EA TAB PO PRN (09:53)
--- NOTE | 2018-07-23 11:49 | NUR ---
Call placed to Dr. hester regarding potassium level. ok for SNF when approved. Needs a central line placed
--- NOTE | 2018-07-23 12:48 | NUR ---
FAXED UPDATED CLINICALS TO [facility].
[2018-07-23] MEDS: ALPRAZOLAM 0.25 MG TAB PO SCH ×2 (13:09→21:59)
[2018-07-23] MEDS: ACETAMINOPHEN 325 MG TAB PO PRN (13:37)
[2018-07-23] MEDS: ENOXAPARIN SOD INJ 40 MG/0.4 ML SYR SC SCH (17:54)
--- NOTE | 2018-07-23 18:20 | NUR ---
PT UNDERGOING IJ PROCEDURE. NO S/S OF DISTRESS.
--- NOTE | 2018-07-23 19:26 | Diagnostic Imaging Report ---
EXAMINATION: CHEST SINGLE (PORTABLE) INDICATION: ^[id number] ^1900 ^S/P CENTRAL LINE PLACEMENT COMPARISON: Chest radiograph 07/16/2018 FINDINGS: AP view TUBES and LINES: Right IJ central venous catheter with tip overlying the cavoatrial junction. LUNGS: Lungs are well inflated. Lungs are clear. There is no evidence of pneumonia or pulmonary edema. PLEURA: No pleural effusion or pneumothorax. HEART AND MEDIASTINUM: The cardiomediastinal silhouette is unremarkable. Atherosclerotic calcifications of the aortic arch. BONES AND SOFT TISSUES: No acute osseous lesion. Soft tissues are unremarkable. UPPER ABDOMEN: No free air under the diaphragm. IMPRESSION: Interval placement of a right IJ central venous catheter with tip overlying the cavoatrial junction. No pneumothorax. Signed by: Dr. Brigette Muse M.D. on 07/23/2018 7:23 PM
[2018-07-23] MEDS: ATORVASTATIN 40 MG TAB PO SCH (21:59)
[2018-07-23] MEDS: TRAZODONE HCL 50 MG TAB PO SCH (21:59)
[2018-07-24] VITALS (8 sets, daily range): BP systolic 123–170; BP diastolic 58–78
[2018-07-24] MEDS: MEROPENEM 500MG/ NS 50ML 50 ML IV SCH ×2 (05:40→16:37)
[2018-07-24] MEDS: ALPRAZOLAM 0.25 MG TAB PO SCH ×3 (05:40→21:23)
[2018-07-24] MEDS: NYSTATIN SUSPENSION 5 ML UDC PO SCH ×3 (05:40→21:23)
--- NOTE | 2018-07-24 07:31 | NUR ---
IM- progress note O/N; no events ROS: no f/c/s/N/V/D/BORGES/vision changes/cp/sob. v/s; revd PE: tired appearing anicteric ns1s2 mod bs soft nt nd no e/t skin dry a&ox3; vincent flat affect labs/med revd A/P: Elderly fall Left pelvic fx Osteoporosis HLD HTN Mood d/o Insomnia PLAN PT pain control restart home meds lovenox BID; ppi SNF eval UTI- levaquin; MARLON- IVF; check labs; 07/19 check labs ; GNR UTI 07/20 cont care; ESBL e.coli UTI- merrem; needs 14 days merrem in snf; cont PT. 07/21 Uncontrolled HTN- add BB. MARLON- POA; increase fluids to 75, add bicarbs for Metabolic acidosis. Central line; D# 3 merrem. 07/22 check labs; D#4 abx. 07/23 cont care; check K 07/24 check labs; control BP Duke Briones MD, PhD.
--- NOTE | 2018-07-24 08:23 | NUR ---
[facility] CALLED AND STATES NOT IN NETWORK WITH INSURANCE, ASKED THEM TO FAX TO DR VILLAVICENCIO OTHER [facility]ING [facility] TO SEE IF THEY ARE IN NETWORK. SPOKE WITH DR VILLAVICENCIO ABOUT DELAY, CALLED INSURANCE SPOKE WITH SAMMI [phone] GAVE REFERENCE NUMBER, SHE WILL FIND OUT WHOM IS IN NETWORK WITH INSURANCE AND RETURN CALL.
[2018-07-24 08:31] LABS: HEMATOCRIT 36.6 % (34.2-44.1); HEMOGLOBIN 11.9 g/dL (12.0-16.0)
[2018-07-24 08:57] LABS: ANION GAP 11.7 mmol/L (8-16); CREATININE, SERUM 1.27 mg/dL (0.57-1.11); MAGNESIUM 2.6 MG/DL (1.3-2.1); POTASSIUM 4.7 mmol/L (3.5-5.1)
[2018-07-24] MEDS: SENNOSIDES 8.6 MG TAB PO SCH (09:00)
[2018-07-24] MEDS: MAGNESIUM HYDROXIDE 30 ML UDC PO SCH (09:00)
[2018-07-24] MEDS: DOCUSATE SODIUM 100 MG CAP PO SCH ×2 (09:00→16:37)
[2018-07-24] MEDS: SODIUM BICARBONATE 650 MG TAB PO SCH ×2 (09:01→16:23)
[2018-07-24] MEDS: OLMESARTAN 20 MG TAB PO SCH (09:01)
[2018-07-24] MEDS: GABAPENTIN 100 MG CAP PO SCH ×3 (09:01→21:13)
[2018-07-24] MEDS: NIFEDIPINE CR 30 MG TAB PO SCH ×2 (09:01→21:13)
[2018-07-24] MEDS: OMEPRAZOLE 20 MG CAP PO SCH (09:01)
[2018-07-24] MEDS: ACETAMINOPHEN 325 MG TAB PO PRN ×2 (09:02→21:23)
[2018-07-24] MEDS: SERTRALINE HCL 50 MG TAB PO SCH (09:02)
[2018-07-24] MEDS: LABETALOL HCL 100 MG TAB PO SCH ×2 (09:02→21:23)
--- NOTE | 2018-07-24 09:10 | NUR ---
SPOKE WITH JAYDON FROM INSURANCE THEY STATE THE PT IS A RENAISSANCE PROGRAM BUT THEY SERVICE THE CONTRACT. SHE STATES [employer] AND [employer] ARE BOTH IN NETWORK. SHE STATES SHE WILL CALL THEM AND FIND OUT WHY THEY SAY THEY ARE NOT IN NETWORK.
--- NOTE | 2018-07-24 10:48 | NUR ---
IMM letter delivered and explained to pt. She verbalized understanding. Signed copy placed in chart. Copy placed in pt's transition of care folder. Discharge plan is for pt to transfer to [facility] once accepted.
[2018-07-24] MEDS: SODIUM CHLORIDE 0.9% 1000ML 1,000 ML IV SCH (11:01)
[2018-07-24] MEDS: TRAZODONE HCL 50 MG TAB PO SCH (21:12)
[2018-07-24] MEDS: ATORVASTATIN 40 MG TAB PO SCH (21:13)
[2018-07-25] VITALS: BP 165/83
[2018-07-25 04:00] VITALS: BP 162/70
[2018-07-25] MEDS: SODIUM CHLORIDE 0.9% 1000ML 1,000 ML IV SCH (05:04)
[2018-07-25] MEDS: MEROPENEM 500MG/ NS 50ML 50 ML IV SCH (05:04)
[2018-07-25] MEDS: ALPRAZOLAM 0.25 MG TAB PO SCH (05:10)
[2018-07-25] MEDS: NYSTATIN SUSPENSION 5 ML UDC PO SCH (05:10)
[2018-07-25] MEDS: ACETAMINOPHEN 325 MG TAB PO PRN (05:10)
--- NOTE | 2018-07-25 06:33 | NUR ---
D/C Summary Principal Dx: Elderly fall Left pelvic fx Osteoporosis Secondary Dx: HLD HTN Mood d/o Insomnia PLAN PT pain control restart home meds lovenox BID; ppi SNF eval UTI- levaquin; MARLON- IVF; check labs; 07/19 check labs ; GNR UTI 07/20 cont care; ESBL e.coli UTI- merrem; needs 14 days merrem in snf; cont PT. 07/21 Uncontrolled HTN- add BB. MARLON- POA; increase fluids to 75, add bicarbs for Metabolic acidosis. Central line; D# 3 merrem. 07/22 check labs; D#4 abx. 07/23 cont care; check K 07/24 check labs; control BP 07/25 check UA; d/c planning; d/c to SNF f/u pcp 1 week stable d/c >35mins Duke Briones MD, PhD.
--- NOTE | 2018-07-25 07:40 | Diagnostic Imaging Report ---
Procedure: Right internal jugular non-tunneled central venous catheter placement with ultrasound guidance boring machine operator: Dr. Sohan Moon Pre-operative diagnosis: Requiring central venous access Post-operative diagnosis: Status post central venous access Sedation: Local Additional Medications: Lidocaine 1% for local anesthesia Estimated blood loss: None Specimens: None Implants: 7 Fr x 16 cm triple lumen non-tunneled central venous catheter TECHNIQUE/FINDINGS: Informed consent was obtained from the patient and documented in the medical record after discussion of risks and benefits. The patient was placed in the supine position. Preliminary sonographic evaluation of the right neck confirmed a patent and compressible right internal jugular vein. A permanent sonographic image was stored for the medical record. The neck was then prepped and draped in a standard sterile fashion. Subsequently, 1% lidocaine was infiltrated into the skin and subcutaneous tissues for local anesthesia. Then under continuous sonographic guidance, a 21 gauge needle was advanced into the right internal jugular vein and an .018'' wire was placed. A 5 Fr micropuncture sheath was placed and the existing wire was exchanged for an .035'' wire. The tract was dilated. Then, a 7 Fr x 16 cm triple lumen non-tunneled central venous catheter was advanced. The wire was then removed. Each lumen was tested and showed adequate bidirectional flow. The catheter was secured to the skin with Monocryl, flushed with saline, and covered by a sterile dressing. No evidence of immediate complication. IMPRESSION: Placement of a right IJ non-tunneled triple lumen central venous catheter with ultrasound guidance as above. Signed by: Dr. Sohan Moon MD on 07/25/2018 7:37 AM
[2018-07-25] MEDS ORDERED: TRAMADOL HCL 50 MG TAB PO PRN (08:00)
[2018-07-25 08:04] VITALS: BP 98/60
[2018-07-25] MEDS: GABAPENTIN 100 MG CAP PO SCH (08:58)
[2018-07-25] MEDS: OMEPRAZOLE 20 MG CAP PO SCH (08:58)
[2018-07-25] MEDS: SODIUM BICARBONATE 650 MG TAB PO SCH (08:58)
[2018-07-25] MEDS: NIFEDIPINE CR 30 MG TAB PO SCH (08:58)
[2018-07-25] MEDS: OLMESARTAN 20 MG TAB PO SCH (08:58)
[2018-07-25] MEDS: DOCUSATE SODIUM 100 MG CAP PO SCH (08:58)
[2018-07-25] MEDS: SERTRALINE HCL 50 MG TAB PO SCH (08:59)
[2018-07-25] MEDS: MAGNESIUM HYDROXIDE 30 ML UDC PO SCH (08:59)
[2018-07-25] MEDS: LABETALOL HCL 100 MG TAB PO SCH (08:59)
[2018-07-25] MEDS: SENNOSIDES 8.6 MG TAB PO SCH (08:59)
[2018-07-25] MEDS ORDERED: LIDOCAINE 5% PATCH TP SCH (09:00)
[2018-07-25 09:31] LABS: BILIRUBIN,URINE NEGATIVE (NEGATIVE); CLARITY,URINE SL CLOUDY (CLEAR); COLOR,URINE YELLOW (YELLOW); KETONES,URINE NEGATIVE (NEGATIVE); LEUKOCYTE ESTERASE ,URINE NEGATIVE (NEGATIVE); NITRITE,URINE NEGATIVE (NEGATIVE); PROTEIN,URINE DIPSTICK NEGATIVE (NEGATIVE); URINE UROBILINOGEN 0.2 mg/dL (0.2 - 1)
--- NOTE | 2018-07-25 11:00 | NUR ---
PT ACCEPTED TO [facility] ROOM 128 AND TO CONTINUE CARE WITH DR VILLAVICENCIO. PT RTF COMPLETED AND GIVEN TO NURSE.
[2018-07-25 11:11] VITALS: BP 133/62
--- NOTE | 2018-07-25 11:49 | NUR ---
Notified Dr. Briones that patient has room ready at [facility], he said OK to transfer. Notified the patient's son, Quentin of the patient being transferred. He is in agreement with transfer and POC.
--- NOTE | 2018-07-25 12:14 | NUR ---
Patient is aware of transfer and in agreement with discharge
--- NOTE | 2018-07-25 13:36 | NUR ---
Report given to MATT Hernandes at [facility].
== END 2018-07-25 14:05 | DRG 543 ==
LOC: ER 16:54 → ERHOLD 17:47 → INTOOBSV 17:47 → MED/SURG 19:39 → MED/SURG2 07-18 12:18 → OBSVTOIN 07-19 17:05
PROVIDERS: ADMIT Internal Medicine; ATTEND Internal Medicine
PROC: 02HV33Z Insertion of Infusion Device into Superior Vena Cava, Percutaneous Approach (ICD-10-PCS; principal; 2018-07-23)
DX: M80.852A Other osteoporosis with current pathological fracture, left femur, initial encounter for fracture (principal); N39.0 Urinary tract infection, site not specified; I10 Essential (primary) hypertension; E78.5 Hyperlipidemia, unspecified
CPT/HCPCS: 36415; 36556; 71045; 74470; 76937; 80048; 80061; 81001; 81003; 83735; 84100; 84132; 84443; 85014; 85018; 85025; 85610; 85730; 87086; 87186; 96367; 97139; 99284; C1751; C1769; G0378; J1650; J1956; J2270; J2405; J7030; J7050

== ENCOUNTER 2018-08-08 12:14 | Inpatient (IN) | payer MEDICARE ==
[~2018-08-08] VITALS: Ht 154.9 cm; Wt 83.1 kg
[~2018-08-08 12:14] MED LIST changes: +ALENDRONATE SOD70 MG PO; +ALPRAZOLAM0.25 MG PO; +ATORVASTATIN CA20 MG PO; +BACLOFEN10 MG PO; +BENICAR20 MG PO; +LATANOPROST 0.005% OU; +METOPROLOL SUCC25 MG PO; +PRESERVISION A1 EACH; +SERTRALINE HCL50 MG PO; +TRAZODONE HCL50 MG PO; +[UNRECOGNIZED DRUG - OTHER]; +[UNRECOGNIZED DRUG - OTHER] PO
[2018-08-08] MEDS ORDERED: SODIUM CHLORIDE 0.9% 1000ML 1,000 ML IV STA (12:24)
[2018-08-08] MEDS ORDERED: PIPER-TAZ 3.375 GM 50 ML IV ONE (13:00)
[2018-08-08] MEDS ORDERED: ACETAMINOPHEN 1000 MG/100 ML IV ONE (13:00)
[2018-08-08] MEDS ORDERED: ONDANSETRON HCL INJ 2MG/ML 2ML 2 MG/ML VIAL IV ONE (13:00)
[2018-08-08 13:04] LABS: ANION GAP 17.9 mmol/L (8-16); BASOPHILS # (AUTO) 0.1 (0.0-0.1); BASOPHILS % 0.3 % (0.0-1.0); BLOOD UREA NITROGEN 38 mg/dL (8-26); BUN/CREATININE RATIO 12 (6-25); CARBON DIOXIDE 17 mmol/L (22-32); CHLORIDE 104 mmol/L (101-111); CREATININE, SERUM 3.2 mg/dL (0.6-1.1); EOSINOPHILS % 0.1 % (0.0-6.0); EST GLOMERULAR FILTRATION RATE 14 ML/MIN (60-); GLUCOSE 144 mg/dL (74-118); HEMATOCRIT 33.9 % (34.2-44.1); LYMPHOCYTES % 5.3 % (18.0-39.1); MEAN CORPUSCULAR HEMOGLOBIN 30.1 pg (28-32); MEAN CORPUSCULAR HGB CONC 32.4 g/dL (31-35); MEAN CORPUSCULAR VOLUME 92.6 fL (81-99); MONOCYTES % 5.5 % (4.4-11.3); NEUTROPHILS # (AUTO) 32.3 (2.1-6.9); NEUTROPHILS % 87.7 % (38.7-80.0); PLATELET COUNT 308 x10e3/uL (140-360); POTASSIUM 3.9 mmol/L (3.6-5.1); RED BLOOD COUNT 3.66 x10e6/uL (3.6-5.1); RED CELL DISTRIBUTION WIDTH 13.8 % (11.7-14.4); SODIUM 135 mmol/L (136-144)
[2018-08-08] MEDS ORDERED: BACTRIM DS TAB1 EACH PO (13:04)
[2018-08-08] MEDS ORDERED: GABAPENTIN100 MG PO (13:04)
[2018-08-08] MEDS ORDERED: METRONIDAZOLE250 MG PO (13:04)
[2018-08-08] MEDS ORDERED: LABETALOL HCL200 MG PO (13:04)
[2018-08-08 13:22] LABS: ALANINE AMINOTRANSFERASE 14 IU/L (0-55); ALBUMIN 2.3 g/dL (3.5-5.0); ALBUMIN/GLOBULIN RATIO 0.6 (0.8-2.0); ALKALINE PHOSPHATASE 101 IU/L (40-150); CALCIUM 7.9 mg/dL (8.4-10.2); CREATINE KINASE 100 IU/L (29-168); MAGNESIUM 1.7 MG/DL (1.3-2.1)
[2018-08-08 13:23] LABS: LIPASE < 4 U/L (8-78)
--- NOTE | 2018-08-08 13:30 | NUR ---
RECEIVED REPORT FROM YAZMIN RN, ASSUMED CARE AT THIS TIME. PT RESTING IN BED, BREATHING EVEN/UNLABORED, NAD NOTED. CALL LIGHT IN REACH, WILL CONTINUE TO MONITOR.
[2018-08-08 13:37] LABS: B-TYPE NATRIURETIC PEPTIDE2 308.5 pg/mL (0-100)
--- NOTE | 2018-08-08 13:51 | Diagnostic Imaging Report ---
Examination: Single AP view of the chest. COMPARISON: July 23, 2017 INDICATION: Nausea and vomiting DISCUSSION: Lines/tubes: None. Lungs: Age-related interstitial change. No focal pneumonia. Pleura: No pleural effusion or pneumothorax. Heart and mediastinum: The heart and the mediastinum are unremarkable. Bones and soft tissues: No acute bony abnormalities. IMPRESSION: 1. No acute cardiopulmonary abnormalities. Signed by: Dr. Moe Disla M.D. on 08/08/2018 1:48 PM
--- NOTE | 2018-08-08 13:59 | Diagnostic Imaging Report ---
Abdomen, one view. History: Abdominal distention, pain, nausea and vomiting. Findings: The intestinal gas pattern is nonobstructive. Paucity of small bowel gas is noted. Mildly prominent large bowel gas involving the transverse and proximal descending colon There no masses or abnormal calcifications. The osseous structures reveal degenerative changes of the lower spine. IMPRESSION: Nonspecific abdominal series. Signed by: Dr. Jimmy Dubose DO on 08/08/2018 1:56 PM
[2018-08-08] MEDS ORDERED: SODIUM CHLORIDE 0.9% 1000ML 1,000 ML ONE ×2 (14:13)
[2018-08-08] MEDS ORDERED: METRONIDAZOLE 500MG/NS 100ML 100 ML IV STA (14:22)
--- NOTE | 2018-08-08 14:29 | Diagnostic Imaging Report ---
EXAM: CT ABDOMEN AND PELVIS IV CONTRAST DATE: 08/08/2018 Time stamp on Exam: 2:02 PM INDICATION: Abdominal pain, nausea and vomiting with elevated white count and abdominal distention. COMPARISON: 10/06/2009 TECHNIQUE: The abdomen and pelvis were scanned using a multidetector helical scanner. Coronal and sagittal reformations were obtained. Routine protocol performed. Technique modification was utilized to maintain the lowest dose possible to the patient. IV Contrast: None Oral Contrast: None Radiation Dose: Total DLP 668.32 mGy*cm Estimated effective dose: DLP x 0.015 x size factor FINDINGS: LOWER THORAX: No consolidations. Small pericardial effusion. LIVER: No masses BILIARY: The gallbladder is unremarkable. No ductal dilatation. SPLEEN: No masses PANCREAS: No masses ADRENALS: No nodules KIDNEYS: Small kidneys without evidence of hydronephrosis. GI TRACT: Diffuse colonic wall thickening. No evidence of toxic megacolon. There are sigmoid colon diverticula with a mild amount of stranding but no abscess. Small bowel appears normal. VESSELS: Vascular calcification. PERITONEUM/RETROPERITONEUM: Minimal amount of free fluid in the right lower quadrant. LYMPH NODES: No lymphadenopathy REPRODUCTIVE ORGANS: Unremarkable BLADDER: Unremarkable SOFT TISSUES: Unchanged midline lower abdominal wall hernia with a portion of the urinary bladder extending above the symphysis pubis in the soft tissues. BONES: Old right superior pubic rami fracture. Destructive process involving the right rami at the symphysis appears stable. Discussed with ER physician, Dr Pierce at the time of interpretation. IMPRESSION: 1. Diffuse colonic wall thickening without evidence of obstruction, pneumatosis or perforation. 2. Sigmoid colon diverticula with a mild amount of pericolonic stranding. 3. Minimal amount of free fluid in the right lower quadrant. 4. Stable lower abdominal midline hernia with a portion of the bladder in the hernia. Signed by: Dr. Jimmy Dubose DO on 08/08/2018 2:26 PM
[2018-08-08] MEDS ORDERED: SODIUM CHLORIDE 0.9% 1000ML 1,000 ML IV SCH ×2 (14:30)
[2018-08-08] MEDS ORDERED: MORPHINE SULFATE 2 MG/ML SYR 1ML IV PRN (14:45)
[2018-08-08 15:02] LABS: CLARITY,URINE SL CLOUDY (CLEAR); COLOR,URINE YELLOW (YELLOW); LEUKOCYTE ESTERASE ,URINE NEGATIVE (NEGATIVE); NITRITE,URINE NEGATIVE (NEGATIVE); PROTEIN,URINE DIPSTICK TRACE (NEGATIVE)
[2018-08-08 15:03] LABS: BILIRUBIN,URINE SMALL (NEGATIVE); KETONES,URINE NEGATIVE (NEGATIVE); URINE UROBILINOGEN 0.2 mg/dL (0.2 - 1)
[2018-08-08 15:18] LABS: AMORPHOUS SEDIMENT,URINE MODERATE (FEW); BACTERIA,URINE FEW /HPF; RBC,URINE 0-5 /HPF (0-5)
[2018-08-08] MEDS: MORPHINE SULFATE INJ 4 MG/ML INJ 1ML IV PRN ×2 (15:30→23:51)
[2018-08-08] MEDS: ONDANSETRON HCL INJ 2MG/ML 2ML 2 MG/ML VIAL IV PRN (15:30)
[2018-08-08 16:30] VITALS: BP 118/50
[2018-08-08] MEDS: SODIUM CHLORIDE 0.9% 1000ML 1,000 ML IV SCH ×2 (16:30→23:51)
--- NOTE | 2018-08-08 16:30 | NUR ---
received to rm aaox3 no distress noted, pt is Faroese speaking with minimal Icelandic,updated on poc voiced understanding, l hand 20g no ss of infiltration noted, ivf infusing to r ac 20g no ss of infiltration noted, denies pain at this time, call light in reach, son at bedside, bed low/locked position will continue to monitor
--- NOTE | 2018-08-08 17:00 | NUR ---
SPOKE WITH DR Manuel CHAMPION RE: CONSULT NO NEW ORDERS AT THIS TIME,
[2018-08-08 17:01] VITALS: BP 118/50
[2018-08-08] MEDS ORDERED: ACETAMINOPHEN 325 MG TAB PO PRN (17:30)
[2018-08-08] MEDS ORDERED: HYDRALAZINE HCL 20 MG/ML VIAL IV PRN (17:30)
[2018-08-08] MEDS ORDERED: VANCOMYCIN 250MG/5ML ORAL SOLN PO SCH (18:00)
[2018-08-08 19:00] VITALS: BP 106/74
--- NOTE | 2018-08-08 19:08 | NUR ---
REPORT GIVEN TO OPTICS TEST TECHNICIAN RN, NO DISTRESS NOTED, DENIES PAIN AT THIS TIME, CALL LIGHT IN REACH WILL CONTINUE OT MONITOR
[2018-08-08 19:40] VITALS: BP 101/62
[2018-08-08] MEDS: GABAPENTIN 100 MG CAP PO SCH (20:45)
[2018-08-08] MEDS: ALPRAZOLAM 0.25 MG TAB PO PRN (20:46)
[2018-08-08 21:00] VITALS: BP 101/62
[2018-08-08] MEDS ORDERED: ATORVASTATIN 20 MG TAB PO SCH (21:00)
[2018-08-08] MEDS ORDERED: ATORVASTATIN 40 MG TAB PO SCH (21:00)
[2018-08-08] MEDS: PENTOXIFYLLINE 400 MG TAB CR PO SCH (23:34)
[2018-08-09] VITALS (21 sets, daily range): BP systolic 80–116; BP diastolic 51–80
[2018-08-09] MEDS ORDERED: VANCOMYCIN HCL 500 MG ONE (01:19)
[2018-08-09] MEDS ORDERED: SODIUM CHLORIDE 0.9% 250ML 250 ML ONE (01:29)
[2018-08-09 01:31] LABS: BASOPHILS # (AUTO) 0.1 (0.0-0.1); BASOPHILS % 0.3 % (0.0-1.0); EOSINOPHILS # (AUTO) 0.1 (0.0-0.4); EOSINOPHILS % 0.1 % (0.0-6.0); HEMATOCRIT 32.7 % (34.2-44.1); HEMOGLOBIN 10.3 g/dL (12.0-16.0); LYMPHOCYTES # (AUTO) 1.8 (1.0-3.2); LYMPHOCYTES % 4.3 % (18.0-39.1); MEAN CORPUSCULAR HEMOGLOBIN 29.6 pg (28-32); MEAN CORPUSCULAR HGB CONC 31.5 g/dL (31-35); MONOCYTES # (AUTO) 1.7 (0.2-0.8); MONOCYTES % 4.1 % (4.4-11.3); NEUTROPHILS # (AUTO) 37.6 (2.1-6.9); NEUTROPHILS % 88.5 % (38.7-80.0); PLATELET COUNT 269 x10e3/uL (140-360); RED BLOOD COUNT 3.48 x10e6/uL (3.6-5.1); RED CELL DISTRIBUTION WIDTH 14.1 % (11.7-14.4)
--- NOTE | 2018-08-09 01:46 | Diagnostic Imaging Report ---
EXAM: ABDOMEN-1VIEW (KUB), DATE: 08/09/2018 12:32 AM INDICATION: Colitis sepsis. Rule out obstruction. COMPARISON: 08/08/2018. FINDINGS: LINES/TUBES: None BOWEL PATTERN: Interval increase in degree of gaseous distention of the entire colon with paucity of gas in the rectum. SOFT TISSUES: No abnormal calcifications. No mass effect. LUNG BASES: Not included BONES: No acute findings. IMPRESSION: Interval increase in degree of gaseous distention of the entire colon with paucity of gas in the rectum. Signed by: Dr. Edilma Cervantes M.D. on 08/09/2018 1:42 AM
[2018-08-09] MEDS: VANCOMYCIN HCL 500 MG VIAL RC SCH ×4 (01:49→20:36)
[2018-08-09] MEDS: SODIUM CHLORIDE 0.9% 250ML IRRIG IR SCH ×4 (01:49→20:36)
[2018-08-09 01:54] LABS: ALBUMIN 1.9 g/dL (3.5-5.0); ALBUMIN/GLOBULIN RATIO 0.6 (0.8-2.0); CREATININE, SERUM 2.6 mg/dL (0.57-1.11)
[2018-08-09 02:06] LABS: CALCIUM 6.9 mg/dL (8.4-10.2)
[2018-08-09] MEDS: SODIUM CHLORIDE 0.9% 1000ML 1,000 ML IV SCH (05:38)
[2018-08-09 05:41] LABS: BASOPHILS # (AUTO) 0.1 (0.0-0.1); BASOPHILS % 0.3 % (0.0-1.0); EOSINOPHILS # (AUTO) 0.1 (0.0-0.4); EOSINOPHILS % 0.2 % (0.0-6.0); HEMATOCRIT 33.7 % (34.2-44.1); HEMOGLOBIN 10.3 g/dL (12.0-16.0); LYMPHOCYTES # (AUTO) 1.6 (1.0-3.2); LYMPHOCYTES % 3.8 % (18.0-39.1); MEAN CORPUSCULAR HEMOGLOBIN 29.3 pg (28-32); MEAN CORPUSCULAR HGB CONC 30.6 g/dL (31-35); MEAN CORPUSCULAR VOLUME 95.7 fL (81-99); MONOCYTES # (AUTO) 1.8 (0.2-0.8); MONOCYTES % 4.4 % (4.4-11.3); NEUTROPHILS # (AUTO) 36.6 (2.1-6.9); NEUTROPHILS % 87.9 % (38.7-80.0); PLATELET COUNT 286 x10e3/uL (140-360); RED BLOOD COUNT 3.52 x10e6/uL (3.6-5.1); RED CELL DISTRIBUTION WIDTH 14.1 % (11.7-14.4)
[2018-08-09 05:46] LABS: ALBUMIN 1.8 g/dL (3.5-5.0); ALBUMIN/GLOBULIN RATIO 0.6 (0.8-2.0); CREATININE, SERUM 2.66 mg/dL (0.57-1.11); MAGNESIUM 1.6 MG/DL (1.3-2.1); PHOSPHORUS 3.7 MG/DL (2.3-4.7)
[2018-08-09 05:47] LABS: CALCIUM 6.8 mg/dL (8.4-10.2)
[2018-08-09] MEDS ORDERED: VANCOMYCIN 250MG/5ML ORAL SOLN PO SCH ×3 (06:00)
[2018-08-09] MEDS ORDERED: METRONIDAZOLE 750MG/NS 150ML 150 ML IV SCH ×2 (06:00→12:00)
[2018-08-09] MEDS ORDERED: METRONIDAZOLE 500MG/NS 100ML 100 ML IV SCH ×2 (06:00)
[2018-08-09] MEDS ORDERED: VANCOMYCIN 750MG/NS 150ML IVPB 150 ML IV SCH ×2 (06:00→07:00)
[2018-08-09 06:09] LABS: FREE T4 (FREE THYROXINE) 0.92 ng/dL (0.9-1.8); THYROID STIMULATING HORMONE 0.486 uIU/mL (0.350-4.940)
[2018-08-09] MEDS ORDERED: CALCIUM GLUCONATE 10% INJ 4.65 MEQ in SODIUM CHLORIDE 0.9% 50ML 50 ML IV ONE (06:45)
--- NOTE | 2018-08-09 06:49 | Diagnostic Imaging Report ---
EXAM: ABDOMEN-1VIEW (KUB), DATE: 08/09/2018 6:20 AM INDICATION: Rule out obstruction. COMPARISON: 08/09/2018 at 0051 hours. FINDINGS: LINES/TUBES: None BOWEL PATTERN: No interval change in degree of gaseous distention of the entire colon (moderate) with paucity of gas in the rectum. There is mild diffuse thickening of the haustra in keeping with colitis identified on recent CT examination. SOFT TISSUES: No abnormal calcifications. No mass effect. LUNG BASES: Not included BONES: No acute findings. IMPRESSION: No interval change in moderate gaseous distention of the entire colon with paucity of gas in the rectum. Signed by: Dr. Edilma Cervantes M.D. on 08/09/2018 6:46 AM
--- NOTE | 2018-08-09 07:08 | NUR ---
PATIENT ENDORSED TO NEXT SHIFT FOR CONTINUITY OF CARE.
[2018-08-09] MEDS ORDERED: FAMOTIDINE 20 MG TAB PO SCH (07:30)
[2018-08-09] MEDS ORDERED: METOPROLOL SUCCINATE 25 MG TAB XL PO SCH (09:00)
[2018-08-09] MEDS ORDERED: OLMESARTAN 20 MG TAB PO SCH (09:00)
[2018-08-09] MEDS ORDERED: BACLOFEN 10 MG TAB PO SCH (09:00)
[2018-08-09] MEDS ORDERED: SERTRALINE HCL 50 MG TAB PO SCH (09:00)
[2018-08-09] MEDS ORDERED: NIFEDIPINE CR 30 MG TAB PO SCH (09:00)
[2018-08-09] MEDS ORDERED: SODIUM CHLORIDE 0.9% 250ML 250 ML IV NR (09:30)
[2018-08-09] MEDS: GABAPENTIN 100 MG CAP PO SCH (09:34)
[2018-08-09] MEDS: PENTOXIFYLLINE 400 MG TAB CR PO SCH (09:34)
[2018-08-09] MEDS: VANCOMYCIN 250MG/5ML ORAL SOLN PO SCH ×3 (09:34→17:03)
[2018-08-09] MEDS ORDERED: METOPROLOL TARTRATE INJ 1 MG/ML VIAL IV PRN (09:45)
[2018-08-09] MEDS ORDERED: ACETAMINOPHEN 1000 MG/100 ML IV PRN (10:00)
[2018-08-09] MEDS: MORPHINE SULFATE INJ 4 MG/ML INJ 1ML IV PRN (10:14)
[2018-08-09] MEDS ORDERED: LABETALOL HCL 200 MG TAB PO SCH (10:15)
--- NOTE | 2018-08-09 11:03 | NUR ---
HR very high in the 170's at times. EKG ordered and will notify MD of results for further orders.
[2018-08-09] MEDS ORDERED: CALCIUM GLUCONATE 10% INJ 9.3 MEQ in SODIUM CHLORIDE 0.9% 100 ML 100 ML IV ONE (12:30)
--- NOTE | 2018-08-09 12:53 | NUR ---
Jazmin Lambert called and ordered patient to be transferred to ICU.
--- NOTE | 2018-08-09 13:32 | Consultation ---
DATE OF CONSULTATION: 08/09/2018 Nephrology Consultation Note REASON FOR CONSULTATION: Acute kidney injury, C difficile colitis. HISTORY OF PRESENT ILLNESS: An 83-year-old female with multiple comorbidities, who apparently has a known diagnosis now of C difficile colitis with worsening abdominal distention. The patient came in with nausea, vomiting, and worsening diarrhea for the last several days according to the son at bedside. No reports of any history of CKD in the past. Denies any hzln-khg-utyhmts medication, no herbal supplements. No reports of any CKD in the past as well according to the son. The patient continues to have profuse amount of diarrhea. Her KUB is significant for distended colon in which General Surgery has been consulted. The patient seen and evaluated at bedside on the medical floor. Currently, she is doing a little better according to the nursing staff. She also developed AFib with RVR just recently. REVIEW OF SYSTEMS: Pertinent positives: Abdominal pain, nausea, vomiting, diarrhea. Pertinent negatives: Denies any chest pain, palpitation, dysuria, hematuria, frequency, urgency, lightheadedness, dizziness, cough, congestion, fever, or any other complaints. The rest of the 14-point review of systems have been reviewed with the patient and are negative. ALLERGIES: PENICILLIN. HOME MEDICATIONS: Alendronate 70 mg daily, Bactrim 1 tab p.o. b.i.d., omeprazole 20 mg daily, Xanax 0.25 mg at bedtime, Lipitor 40 mg daily, baclofen 10 mg p.o. b.i.d., gabapentin 100 mg t.i.d., labetalol 200 mg b.i.d., metoprolol ER 25 mg p.o. b.i.d., nifedipine ER 90 mg daily, Benicar 20 mg daily, pentoxifylline 400 mg p.o. t.i.d., sertraline 50 mg daily, simvastatin 40 mg daily, trazodone 50 mg at bedtime. PAST MEDICAL HISTORY: Hypertension, anxiety, peripheral neuropathy, hyperlipidemia. PAST SURGICAL HISTORY: None reported. FAMILY HISTORY: Hypertension and diabetes. SOCIAL HISTORY: No drugs. No alcohol. Does not smoke. Good social support. PHYSICAL EXAMINATION: VITAL SIGNS: Temperature is 98, pulse 117, respiratory rate is 21, blood pressure is 101/51, pulse ox is 92% on nasal cannula. GENERAL: Not in acute distress. Alert and oriented x3. Cooperative on examination. HEENT: Head is normocephalic and atraumatic. Eyes; pupils are equal, round, and reactive to light bilaterally. Extraocular movements are intact bilaterally. Throat, no evidence of erythema or exudates in the posterior pharynx. Has poor dentition. NECK: Supple. Good range of motion. PULMONARY: Clear to auscultation bilaterally. No wheezing, no rales, no rhonchi, no crackles appreciated. CARDIOVASCULAR: Positive S1, S2. No murmurs, rubs, or gallops appreciated. ABDOMEN: It is distended, tympanic, tender to palpation. Bowel sounds were present. MUSCULOSKELETAL: Strength is 5/5 throughout. No evidence of any muscle deficits on examination. No weakness appreciated. NEUROLOGICAL: Cranial nerves 2 through 12 grossly intact. No evidence of any neurological deficits on exam. SKIN: Intact. Warm to touch. Good cap refill. PSYCHIATRIC: Normal affect and mood. EXTREMITIES: No edema. Good range of motion throughout. LABORATORY DATA: Lab findings show white count 41, hemoglobin 10.3, hematocrit 33.7, platelets of 286. Chemistry; sodium 134, potassium 4, chloride 112, bicarb is 15, BUN 46, creatinine is 2.66, glucose is 124. Hemoglobin A1c 5.6. Calcium 6.8, phosphorus is 3.7, magnesium 1.6. LFTs were normal. Albumin 1.8. Urinalysis was found to be negative. MICROBIOLOGY: Urine culture shows gram-negative rods. Stool cultures are pending. Blood cultures are pending. IMAGING STUDIES: Last chest x-ray performed this morning shows gaseous distention of entire colon with opacity of gas in the rectum. CT abdomen and pelvis shows evidence of diffuse colonic wall thickening without evidence of obstruction, pneumatosis, or perforation. IMPRESSION: 1. Acute kidney injury likely secondary to underlying acute tubular necrosis from hypotension as well as current sepsis. 2. Sepsis due to underlying significant diarrhea concerning for Clostridium difficile colitis. 3. Leukocytosis. 4. Metabolic acidosis. 5. Hypocalcemia. PLAN: At this time, I will go ahead and start her on a bicarb drip at 75 mL/hour, replace electrolytes. Calcium has been replaced earlier today. Stop baclofen and gabapentin as well as KRISTIE inhibitor. Continue with IV fluid hydration. Her creatinine did improve actually from 08/08/2018 from 3.2 to 2.6. Otherwise, we will continue same plan of care and monitor very closely. She could also have acute kidney injury likely due to abdominal distention, which could raise the creatinine as well from intra-abdominal pressure. MD ALONA Khanna/YENYL /[id number]
[2018-08-09] MEDS: SODIUM BICARBONATE 8.4% 150 ML in DEXTROSE 5% 1,000 ML IV SCH ×2 (13:44→20:36)
--- NOTE | 2018-08-09 14:01 | NUR ---
patient transferred to ICU. all personal belongings with patient. report given to Christine. vitals stable with no distress at time of transfer.
[2018-08-09] MEDS ORDERED: MIDAZOLAM HCL 2 MG/2 ML VIAL ONE (14:23)
[2018-08-09] MEDS ORDERED: FENTANYL CITRATE/PF 100MCG/2 ML INJ ONE (14:23)
[2018-08-09] MEDS ORDERED: SUCCINYLCHOLINE 200 MG/10 ML SYR ONE (16:38)
[2018-08-09] MEDS ORDERED: ROCURONIUM BROMIDE 10 MG/ML 5ML VIAL ONE (16:38)
[2018-08-09] MEDS ORDERED: SEVOFLURANE INHAL SOLN 250 ML PEN BTL ONE (16:38)
[2018-08-09] MEDS ORDERED: ETOMIDATE 2 MG/ML 10 ML INJ IV ONE (16:38)
[2018-08-09] MEDS: FAMOTIDINE 20 MG/2 ML VIAL IV SCH (17:03)
--- NOTE | 2018-08-09 17:10 | Diagnostic Imaging Report ---
Exam: KUB -one view Clinical History: Abdominal pain. Comparison: KUB 08/09/2018. CT abdomen/pelvis 08/08/2018. Findings: Similar appearance of dilated small and large bowel loops. There is a paucity of air in the rectum. No evidence of free intraperitoneal air. No acute osseous abnormality. Degenerative changes of lower lumbar spine. Impression: Similar appearance of dilated small and large bowel loops with a paucity of air in the rectum. Findings may represent nonobstructive ileus or partial small bowel obstruction. Signed by: Dr. Sohan Moon MD on 08/09/2018 5:06 PM
[2018-08-09 17:31] LABS: BASOPHILS # (AUTO) 0.2 (0.0-0.1); BASOPHILS % 0.4 % (0.0-1.0); HEMATOCRIT 35.2 % (34.2-44.1); HEMOGLOBIN 11.2 g/dL (12.0-16.0); LYMPHOCYTES # (AUTO) 1.3 (1.0-3.2); MEAN CORPUSCULAR HEMOGLOBIN 29.5 pg (28-32); MEAN CORPUSCULAR HGB CONC 31.8 g/dL (31-35); MEAN CORPUSCULAR VOLUME 92.6 fL (81-99); MONOCYTES # (AUTO) 2.2 (0.2-0.8); MONOCYTES % 5.2 % (4.4-11.3); NEUTROPHILS # (AUTO) 35.5 (2.1-6.9); NEUTROPHILS % 85.2 % (38.7-80.0); PLATELET COUNT 293 x10e3/uL (140-360); RED CELL DISTRIBUTION WIDTH 14.3 % (11.7-14.4)
--- NOTE | 2018-08-09 17:39 | NUR ---
CALLED AND GAVE RESULTS OF CBC AND KUB TO Manuel CHAMPION
[2018-08-09 19:09] LABS: CALCIUM 7.4 mg/dL (8.4-10.2); CREATININE, SERUM 3.21 mg/dL (0.57-1.11)
[2018-08-09 20:21] LABS: LYMPHOCYTES % (MANUAL) 1 % (19-48); MONOCYTES % (MANUAL) 5 % (3.4-9.0); NEUTROPHILS % (MANUAL) 94 % (40-74); RBC MORPHOLOGY COMMENT NORMAL
[2018-08-09 20:22] LABS: PLATELET ESTIMATE ADEQUATE; PLATELET MORPHOLOGY COMMENT NORMAL
--- NOTE | 2018-08-09 20:30 | NUR ---
Dr. Oliver rounding. Charge nurse, Jessica GUTIERREZ, in room with patient and MD. Dr. Oliver discussed with daughter surgical interventions.
[2018-08-09] MEDS: TRAZODONE HCL 50 MG TAB PO SCH (20:36)
[2018-08-09] MEDS ORDERED: SIMVASTATIN 40 MG TAB PO SCH (21:00)
--- NOTE | 2018-08-09 21:29 | Consultation ---
DATE OF CONSULTATION: 08/09/2018 Pulmonary Critical Care Consultation CHIEF COMPLAINT: Abdominal distention, worsening renal function, and sepsis. HISTORY OF PRESENT ILLNESS: The patient is an 83-year-old woman. She has a history of osteoporosis and hypertension. She was recently hospitalized after a fall and a pubic ramus fracture. She returned to the emergency department yesterday complaining of worsening abdominal distention and diffuse diarrhea. She was noted to have severe leukocytosis. She was started on IV fluids and had a CT scan of her abdomen and pelvis that showed diffuse thickening of the colonic wall without evidence of obstruction or perforation. PAST MEDICAL HISTORY: 1. Hypertension. 2. Osteoporosis. 3. Left pelvic fracture. PAST SURGICAL HISTORY: Appendectomy. SOCIAL HISTORY: The patient is not a smoker. She does not use alcohol. FAMILY HISTORY: Family history is noncontributory. ALLERGIES: THE PATIENT IS ALLERGIC TO PENICILLIN WELL LISINOPRIL. REVIEW OF SYSTEMS: The patient has no fever. The patient does not complain of headache or neck pain. There is no chest pain. She does have some mild dyspnea. She has abdominal distention that is severe. She has diffuse diarrhea. She is not complaining of any leg swelling. She has no focal neurological complaints. PHYSICAL EXAMINATION: VITAL SIGNS: The blood pressure is 109/50 and the pulse is 117. The respiratory rate is 21 and saturation is 92%. The patient is afebrile. HEENT: Shows no facial swelling or erythema. The nasal mucosa is normal. The oropharynx is normal. LYMPHATIC: Shows no submandibular, cervical or supraclavicular adenopathy. NECK: Shows no JVD or thyromegaly. There is no nuchal rigidity. CARDIAC: Reveals a regular rate and rhythm with a normal S1 and S2. There are no murmurs or rubs. LUNGS: Auscultation of lungs shows decreased breath sounds at the bases. ABDOMEN: Distended. There is diffuse tenderness that does not localize well. EXTREMITIES: She has no leg edema. NEUROLOGIC: She has no focal neurological complaints. LABORATORY DATA: White blood cell count is 41.6 with a hemoglobin of 10.3 and a platelet count of 286. The creatinine is 2.66 with a carbon dioxide of 14 and a sodium of 134. The chloride is 112. The calcium is 6.8. The albumin is 1.8. Lipase is normal. RADIOGRAPHIC DATA: Chest x-ray shows no acute disease. CT scan of the abdomen and pelvis shows diffuse thickening of the colonic wall. There are some diverticuli in the sigmoid colon. MICROBIOLOGICAL DATA: Shows a history of an extended-spectrum beta-lactamase producing E coli in the urine from June. She denies gram-negative rods again. IMPRESSION: 1. Colitis with severe sepsis. 2. [id number] renal failure. 3. Metabolic acidosis. 4. Osteoporosis with history of prior pathological fracture. 5. Hypoalbuminemia. PLAN: 1. The patient will be started on treatment for C diff colitis as well as coverage for extended-spectrum beta-lactamase producing E coli. Infectious Disease will see her in consultation. 2. Continue IV fluids. 3. Intravenous bicarbonate to correct acidosis. 4. Nephrology consultation. 5. General Surgery consultation. Dashawn Barber MD LM/YENYL /[id number]
--- NOTE | 2018-08-09 21:35 | NUR ---
Left voicemail at [address] Floyd regarding follow up with POC as MD requested per Christine GUTIERREZ (AM shift). Awaiting return call.
[2018-08-09] MEDS: METRONIDAZOLE 500MG/NS 100ML 100 ML IV SCH (22:00)
--- NOTE | 2018-08-09 22:00 | Consultation ---
DATE OF CONSULTATION: 08/09/2018 Infectious Disease Consult REASON FOR CONSULTATION: Sepsis. Thank you, Dr. Newton and Dr. Barber for asking me to see this patient. HISTORY OF PRESENT ILLNESS: The patient is an 83-year-old woman, referred for sepsis. She presented to the emergency department on 08/08/2018 with profuse diarrhea, nausea, vomiting, abdominal pain, and dehydration. The patient was also feeling feverish. She was hospitalized several weeks ago for pelvic fracture and required IV antibiotics for urinary tract infection. In the emergency department, she was noted to have a temperature of 101.2 degrees Fahrenheit, pulse rate 94, respiratory rate 18, blood pressure 120/44, and oxygen saturation 97% on room air. Initial laboratory studies showed blood leukocyte count of 36,880 with 87.7% neutrophils. BUN 46, creatinine 2.66, and lipase less than 4. CT scan of the abdomen and pelvis showed diffuse colonic wall thickening without evidence of obstruction, pneumatosis, or perforation. The patient was just transferred to the ICU because she developed atrial fibrillation with rapid ventricular rate. PAST MEDICAL HISTORY: Hypertension, hyperlipidemia, gastroesophageal reflux disease, and anxiety. PAST SURGICAL HISTORY: Bilateral cataract surgery, cholecystectomy, appendectomy, hernia repair, hysterectomy, and bilateral carpal tunnel release surgery. ALLERGIES: PENICILLIN, WHICH CAUSE HIVES AND LISINOPRIL. MEDICATIONS: The current antibiotics are: 1. Metronidazole 750 mg IV piggyback every 6 hours. 2. Vancomycin 500 mg p.o. every 6 hours. 3. Vancomycin 500 mg per rectum every 6 hours. IMMUNIZATION: She received pneumococcal vaccination in the past. FAMILY HISTORY: Significant for hypertension. SOCIAL HISTORY: She drinks occasionally beer, but no history of tobacco use. REVIEW OF SYSTEMS: As per history of present illness. She still has abdominal pain and distention. She denies cough, shortness of breath, or dysuria. PHYSICAL EXAMINATION: GENERAL: Acutely ill. VITAL SIGNS: T-max 99.6, pulse rate 102, respiratory rate 27, and blood pressure 197/60. Weight 169 pounds. HEENT: Normocephalic. There is no icterus or injection of conjunctivae. There is no ear or nasal discharge. Dry oral mucosa. No pharyngeal erythema or exudate. NECK: Supple. No meningismus. LUNGS: Good air entry bilaterally. HEART: Normal S1 and S2. Tachycardic. ABDOMEN: Distended, firm with diffuse tenderness. EXTREMITIES: There is no edema, clubbing, or cyanosis. SKIN: There is no acute erythema. QUALITY ASSURANCE: Awake, alert, and oriented to person, place, and time. Nonfocal. LABORATORY AND DIAGNOSTICS: WBC 41,600, hemoglobin 10.3, platelets 87.9, lymphocytes 3.8, monocytes 4.4, eosinophils 0.2, and basophils 0.3. BUN 46 and creatinine 2.66. Urine culture grew gram-negative rods. Blood culture showed no growth. Stool culture is pending. IMPRESSION: 1. Sepsis most likely due to Clostridium difficile colitis, present on admission. 2. Severe dehydration. 3. Acute kidney injury due to dehydration. 4. Atrial fibrillation with rapid ventricular rate. 5. Nausea, vomiting, and diarrhea. PLAN: 1. Change metronidazole to 500 mg IV piggyback every 8 hours. Continue vancomycin as prescribed. Also continue rehydration as prescribed. 2. Cardiology consult if not yet done. MD ADE Butler/BELEN /[id number]
--- NOTE | 2018-08-09 22:00 | NUR ---
Dr. Oliver informed of 3-beat run of v-tach and saw telemetry strip.
--- NOTE | 2018-08-09 22:15 | NUR ---
Anesthesiologist MD and OR staff at bedside. Daughter is present at bedside. Patient escorted by OR staff, off the unit at 2230 via bed. Daughter, Berna, removed patient's jewelry and took it with her.
--- NOTE | 2018-08-09 22:47 | NUR ---
Dr. Manuel Pemberton notified that patient is in surgery with Dr. Oliver for indicated procedures.
[2018-08-10] VITALS (64 sets, daily range): BP systolic 72–116; BP diastolic 34–76
--- NOTE | 2018-08-10 00:10 | Consultation ---
DATE OF CONSULTATION: 08/09/2018 Cardiology Consultation REASON FOR CONSULTATION: Atrial fibrillation with rapid ventricular response. HISTORY OF PRESENT ILLNESS: This is an 83-year-old woman with history of hypertension, hyperlipidemia, and peripheral vascular disease, who presented to the ER with complaints of abdominal pain. Starting three days prior to admission, she also complained of nausea, diarrhea, and poor p.o. intake. Labs in the ER revealed leukocytosis with WBC of 36.88, acute kidney injury with creatinine of 3.2, and CT findings of diffuse colonic wall thickening without evidence of obstructions, pneumatosis, or perforation. C diff was found to be positive and the patient was admitted for further evaluation. Early this morning, the patient developed atrial fibrillation with rapid ventricular response. Cardiology is consulted for further evaluation. The patient is weak and thus history is limited, but she appeared to deny chest pain, shortness of breath, lightheadedness, or palpitations. REVIEW OF SYSTEMS: Negative except as per HPI. PAST MEDICAL HISTORY: 1. Hypertension. 2. Hyperlipidemia. 3. Peripheral vascular disease. 4. Anxiety. PAST SURGICAL HISTORY: 1. Cholecystectomy. 2. Appendectomy. 3. Hysterectomy with hernia surgery. 4. Right cataract surgery. 5. Left ankle ORIF. ALLERGIES: PLEASE SEE EMR. MEDICATIONS: Please see medication list. SOCIAL HISTORY: Denies tobacco, alcohol, or illicit drugs. FAMILY HISTORY: Noncontributory. PHYSICAL EXAMINATION: VITAL SIGNS: Temperature 98 degrees, pulse 117, respiratory rate 21, blood pressure 109/51, and oxygen saturation 92% on 2 L nasal cannula. GENERAL: Elderly woman, in no acute distress. HEENT: Normocephalic and atraumatic. Pupils equal. No scleral icterus. NECK: Supple. No thyromegaly or cervical lymphadenopathy. No carotid bruits. LUNGS: Clear to auscultation bilaterally. No wheezes or crackles. CARDIOVASCULAR: Tachycardic. Irregularly irregular. No murmur. ABDOMEN: Distended, tender to palpation. EXTREMITIES: No edema. NEUROLOGIC: Nonfocal exam. LABORATORY DATA: Sodium 134, potassium 4, chloride 112, CO2 of 14, BUN 46, and creatinine 2.66. WBC 41.69, hemoglobin 11.2, hematocrit 35.2, and platelets 293. EKG, atrial fibrillation with rapid ventricular response. IMPRESSION: 1. Atrial fibrillation with rapid ventricular response. 2. C diff colitis. 3. Acute kidney injury. 4. Hypertension. 5. Hyperlipidemia. 6. Peripheral vascular disease. RECOMMENDATIONS: Discontinue nifedipine and labetalol. Use metoprolol for rate control. Start amiodarone. Obtain echo once heart rate is controlled. Trend cardiac markers. Antibiotics per primary service. Thank you for this consult. We will continue to follow. Taryn Floyd MD ABS/MODL /[id number] MTDD
[2018-08-10] MEDS ORDERED: LACTATED RINGER'S 1,000 ML IV SCH (01:15)
[2018-08-10] MEDS ORDERED: PROPOFOL IV EMULSION 10MG/ML 100 ML IV PRN (02:00)
--- NOTE | 2018-08-10 02:10 | Consultation ---
DATE OF CONSULTATION: 08/09/2018 CHIEF COMPLAINT: Diarrhea, abdominal pain. HISTORY OF PRESENT ILLNESS: The patient is an 83-year-old female with 1-week history of profuse diarrhea 10 times a day with subjective fevers and abdominal distention. The patient was found to have C diff in stool study. PAST MEDICAL HISTORY: Significant for hypertension, hyperlipidemia, peripheral neuropathy. PAST SURGICAL HISTORY: Positive for . ALLERGIES: THE PATIENT HAS ALLERGIC REACTION TO PENICILLIN. SOCIAL HABITS: No smoking or alcohol abuse. REVIEW OF SYSTEMS: Could not be obtained. PHYSICAL EXAMINATION: VITAL SIGNS: The patient's blood pressure is 97/60 with a pulse of 92 and temperature 100.5. GENERAL: The patient is arousable, but lethargic. HEENT: Sclera anicteric. NECK: Supple. LUNGS: Decreased breath sounds. HEART: Regular rate and rhythm. ABDOMEN: Distended with guarding and tenderness throughout with rebound. EXTREMITIES: No cyanosis or edema. LABORATORY DATA: White cell count 41.6, hemoglobin 11, and platelet count is 293. Creatinine 3.2, potassium 4.0. CT scan of the abdomen show diffuse colonic wall thickening. No free air. ASSESSMENT: Clostridium difficile fulminant colitis. No improvement on antibiotics. PLAN: Recommend subtotal colectomy with ileostomy and attendant risks discussed with the family. Murray Oliver MD DNL/MODL /[id number]
--- NOTE | 2018-08-10 02:43 | Diagnostic Imaging Report ---
EXAMINATION: CHEST SINGLE (PORTABLE) INDICATION: ETT PLACEMENT, CENTRAL LINE PLACEMENT COMPARISON: 08/08/2018. FINDINGS: TUBES and LINES: Right neck central venous catheter with distal tip projected on the expected location of the cavoatrial junction. ET tube with distal tip approximately 5 cm proximal to the lisa. NG/orogastric tube extends below the diaphragm, with distal most visualized portion of the left upper quadrant, however, with distal tip not included. LUNGS: There are bibasilar atelectasis. There is no evidence of pneumonia or pulmonary edema. PLEURA: No pleural effusion or pneumothorax. HEART AND MEDIASTINUM: The cardiomediastinal silhouette is unremarkable. BONES AND SOFT TISSUES: No acute osseous lesion. UPPER ABDOMEN: No free air under the diaphragm. IMPRESSION: 1. Tubes and lines in adequate position. Signed by: Dr. Edilma Cervantes M.D. on 08/10/2018 2:40 AM
[2018-08-10] MEDS: SODIUM CHLORIDE 0.9% 250ML IRRIG IR SCH ×4 (02:44→21:00)
[2018-08-10] MEDS: VANCOMYCIN HCL 500 MG VIAL RC SCH ×4 (02:44→21:00)
--- NOTE | 2018-08-10 02:50 | Operative Report ---
DATE OF PROCEDURE: 08/09/2018 SURGEON: Murray Oliver MD PREOPERATIVE DIAGNOSIS: Fulminant Clostridium difficile colitis. POSTOPERATIVE DIAGNOSIS: Fulminant Clostridium difficile colitis. PROCEDURE: Subtotal colectomy and ileostomy. TIME CLERK: None. ANESTHESIA: General. ANESTHESIOLOGIST: Dr. Stone. INDICATION: The patient is an 83-year-old female with history of diarrhea with C diff positive from stool specimen. The patient is developing worsening renal failure and leukocytosis with rebound tenderness on palpation with distention. At this point, recommendation is for subtotal colectomy given the nonoperative approach for fulminant colitis as high mortality. Family has consented along with the patient for subtotal colectomy with all attendant risks discussed. PROCEDURE FINDINGS: Diffuse edematous dilated inflamed colon. DESCRIPTION OF PROCEDURE: The patient was brought to the OR intubated. Abdomen prepped with alcohol and draped in a sterile fashion. A midline incision was made from the xiphoid down to pubis symphysis entering the peritoneal cavity through the midline linea alba. Adhesions encountered, which was taken down with sharp scissor dissection down to the pelvic area. We proceeded to examine the colon, which was diffusely edematous and thickened with dilatation, particularly in the cecum and right colon. There is evidence of ascites. Approximately 300 mL removed. We proceeded to mobilize the colon starting in the midline transverse colon dividing it with a NORA stapler. The right colon was taken first using the LigaSure, staying close to the mesenteric border of the colon, taking down the hepatic flexure and the white line of Toldt down towards the cecum. The terminal ileum was transected approximately 10 cm from the ileocecal valve with a NORA stapler and the right colon was removed. Likewise, the left colon was mobilized, staying close to the mesenteric border of the colon, taking down the splenic flexure and the white line of Toldt. As we approached the sigmoid colon, adhesions to the pelvis was controlled with cautery and LigaSure until we got down to the mesentery of the rectum, which was controlled with the LigaSure instrument carefully. Hemostasis was achieved. We then transected the mid rectum with TL-60 instrument and the specimen of left colon and rectum was removed. The operative field was irrigated. Hemostasis was achieved. The right lower quadrant ileostomy site was repaired by taking out a crow of skin and fatty tissue overlying the right lower rectus muscle. The fascia was opened in a cruciate fashion and the distal ileum was then exteriorized approximately 10 cm above the skin level. The mesentery of the ileum was anchored to the peritoneum inside the ostomy site with interrupted 3-0 silk. We then irrigated peritoneal cavity with copious saline solution. The fascia was then closed with a running #1 PDS reinforced with 0 Vicryl. Skin closed with edilberto. Ileostomy matured with 3-0 Vicryl interrupted stitch. Appliance inserted. The patient was transported intubated to recovery room and ICU admit. BLOOD LOSS: 50 mL. MD KELLEE Hess/BELEN /[id number]
[2018-08-10 05:39] LABS: BASOPHILS # (AUTO) 0.1 (0.0-0.1); BASOPHILS % 0.4 % (0.0-1.0); EOSINOPHILS % 0.2 % (0.0-6.0); HEMATOCRIT 35.7 % (34.2-44.1); HEMOGLOBIN 11.8 g/dL (12.0-16.0); LYMPHOCYTES # (AUTO) 1.8 (1.0-3.2); MEAN CORPUSCULAR HEMOGLOBIN 29.4 pg (28-32); MEAN CORPUSCULAR HGB CONC 33.1 g/dL (31-35); MONOCYTES # (AUTO) 1.5 (0.2-0.8); MONOCYTES % 5.8 % (4.4-11.3); NEUTROPHILS # (AUTO) 21.1 (2.1-6.9); NEUTROPHILS % 83.3 % (38.7-80.0); PLATELET COUNT 312 x10e3/uL (140-360); RED BLOOD COUNT 4.01 x10e6/uL (3.6-5.1); RED CELL DISTRIBUTION WIDTH 14.1 % (11.7-14.4)
[2018-08-10] MEDS: VANCOMYCIN 250MG/5ML ORAL SOLN PO SCH ×4 (06:00→17:05)
[2018-08-10 06:05] LABS: ALBUMIN 1.3 g/dL (3.5-5.0); ALBUMIN/GLOBULIN RATIO 0.4 (0.8-2.0); ANION GAP 17.4 mmol/L (8-16); CREATININE, SERUM 3.29 mg/dL (0.57-1.11); POTASSIUM 3.4 mmol/L (3.5-5.1)
--- NOTE | 2018-08-10 06:08 | Diagnostic Imaging Report ---
EXAM: ABDOMEN-1VIEW (KUB) DATE: 08/10/2018 5:00 AM INDICATION: NG tube placement. COMPARISON: 08/09/18 1610 hours. FINDINGS: The upper abdomen was included. LINES/TUBES: NG/orogastric tube with distal tip projected on the expected location of the gastric fundus. BOWEL PATTERN: Multiple mildly dilated small bowel loops in the upper abdomen may reflect postoperative ileus. SOFT TISSUES: No abnormal calcifications. No mass effect. LUNG BASES: Left basilar atelectasis. BONES: No acute findings. IMPRESSION: 1. NG/orogastric tube with distal tip projected on the expected location of the gastric fundus. 2. Multiple mildly dilated small bowel loops in the upper abdomen may reflect postoperative ileus. Recommend follow-up to resolution. Signed by: Dr. Edilma Cervantes M.D. on 08/10/2018 6:04 AM
[2018-08-10 06:31] LABS: CALCIUM 6.4 mg/dL (8.4-10.2)
--- NOTE | 2018-08-10 06:47 | NUR ---
Called x [address] left [address] Martin regarding critical value, low UO, and this AM's labs. Awaiting return call. AM shift RN, Christine, aware of patient condition, attempts to call.
[2018-08-10] MEDS: METRONIDAZOLE 500MG/NS 100ML 100 ML IV SCH ×3 (06:56→21:58)
--- NOTE | 2018-08-10 07:07 | NUR ---
Dr. Gray returned call to Dr. Oliver regarding post surgical KUB/"possible postop ileus". MD george. Ordered NGT to LIWS.
[2018-08-10] MEDS ORDERED: CALCIUM GLUCONATE 10% INJ 13.95 MEQ in SODIUM CHLORIDE 0.9% 100 ML 100 ML IV ONE (08:30)
[2018-08-10] MEDS: FAMOTIDINE 20 MG/2 ML VIAL IV SCH ×2 (08:45→16:16)
[2018-08-10 08:46] LABS: BAND NEUTROPHILS % (MANUAL) 7 %; LYMPHOCYTES % (MANUAL) 8 % (19-48); MONOCYTES % (MANUAL) 3 % (3.4-9.0); NEUTROPHILS % (MANUAL) 82 % (40-74); PLATELET ESTIMATE ADEQUATE; PLATELET MORPHOLOGY COMMENT NORMAL; RBC MORPHOLOGY COMMENT NORMAL
[2018-08-10 09:49] LABS: ABG HCO3 15 mmol/L (23-28); ABG PCO2 26 mmHg (41-51); ABG PH 7.38 (7.31-7.41); ABG PO2 89 mmHg (80-105)
[2018-08-10] MEDS ORDERED: DEXMEDETOMIDINE HCL 200 MCG in SODIUM CHLORIDE 0.9% 50ML 48 ML IV PRN (13:00)
--- NOTE | 2018-08-10 15:53 | Progress Note ---
DATE: 08/10/2018 Pulmonary Critical Care Progress Note SUBJECTIVE: The patient went to the operating room early last night. She had a partial colectomy and ileostomy. She came back intubated. She is on mechanical ventilation. She was initially on propofol for sedation, but her blood pressure was low and the propofol was held. She was started on bicarbonate drip for worsening acidosis. PHYSICAL EXAMINATION: VITAL SIGNS: The blood pressure is now 105/70. The heart rate is 90 to 95. HEENT: Shows no facial swelling or erythema. There is a right IJ line in good position. The site looks clean. The patient has an oral endotracheal tube in place. CARDIAC: Reveals a regular rate and rhythm with normal S1 and S2. There are no murmurs or rubs heard. PULMONARY: Auscultation of lungs reveal decreased breath sounds at the bases. There is no wheezing. ABDOMEN: Tender. She is status post laparotomy. EXTREMITIES: She has no leg edema or calf tenderness. : She has a small amount of dark urine in her Ralph bag. LABORATORY DATA: White blood cell count is 25, hemoglobin is 11.8, and the platelet count is 312. The BUN to creatinine ratio is 47 to 3.3. The carbon dioxide is 16. Calcium is 6.4. RADIOGRAPHIC DATA: Chest x-ray, this morning shows bibasilar atelectasis. There is an endotracheal tube and a right IJ line in place. IMPRESSION: 1. Colitis with severe sepsis, present on admission. 2. Acute on chronic renal failure. 3. Acute respiratory failure secondary to sepsis. 4. Hypocalcemia. 5. Hypoalbuminemia. 6. Atrial fibrillation. PLAN: 1. Continue intravenous bicarbonate infusion. 2. Monitor urine output and give volume as needed. 3. Precedex for sedation. 4. Continue assist-control mode of ventilation and monitor blood gases. 5. Continue contact isolation. 6. DVT prophylaxis. 7. Case discussed with nursing staff and family. Greater than 35 minutes in direct critical care time. Dashawn Barber MD [facility]/YENYL /[id number]
--- NOTE | 2018-08-10 16:16 | NUR ---
Patient was transferred to ICU and now on mechanical ventilation. Will hold PT until a resume PT order is received. Addendum: 08/10/18 at 1617 by Doyle Benedict PT Amended: Links added.
--- NOTE | 2018-08-10 17:48 | Progress Note ---
DATE: 08/10/2018 Nephrology Progress Note SUBJECTIVE: The patient underwent yesterday emergent OR for colectomy and colostomy creation performed by General Surgery. The patient had significant amount of pain and all related to her underlying C difficile colitis. The patient is currently intubated, sedated. She is in ICU. Nephrology is following in relation to her acute kidney injury with underlying decreased urine output. The patient's urine output has decreased overnight. She is otherwise stable. White count improved to 25. OBJECTIVE: VITAL SIGNS: Currently intubated and sedated, is on mechanical ventilator. Temperature is 98, pulse 109, respiratory is about 17, blood pressure last one recorded is 88/52, pulse ox is 100 percent that she is on a mechanical ventilator. LABORATORY DATA: Labs show white count 25, hemoglobin 9.8, hematocrit 35.7, platelets of 312. Chemistry; sodium 138, potassium 3.4, chloride 108, bicarbonate 16, BUN anion gap is 17, BUN is 47, creatinine is 3.29, glucose is 156, calcium is 6.4, and albumin 1.3. Microbiology: Blood cultures negative. Urine culture positive for Klebsiella. Stool cultures are pending. IMAGING STUDIES: Shows an OG tube with distal tip suggesting in the expected location of the gastric fundus. Multiple mildly dilated small bowel loops in the upper abdomen, may reflect postoperative ileus. OBJECTIVE: GENERAL: She is intubated and sedated. HEENT: Head is normocephalic, atraumatic. Eyes; pupils equal, round, and reactive to light bilaterally. Extraocular movements are intact bilaterally. Throat, no evidence of any erythema or exudates in the posterior pharynx with an ET tube. NECK: Supple. Good range of motion. PULMONARY: Has an ET tube. She is breathing well. She is alert occasionally. CARDIOVASCULAR: Positive S1, S2. No murmurs, rubs, or gallops. GI: Soft, nondistended, and nontender to palpation. Bowel sounds present. MUSCULOSKELETAL: Unable to assess, intubated and sedated. NEUROLOGIC: Unable to assess. SKIN: Intact, warm to touch. Good cap refill. PSYCHIATRIC: Currently, intubated and sedated. EXTREMITIES: Has some trace lower extremity edema. IMPRESSION: 1. Acute kidney injury, likely secondary to underlying acute tubular necrosis from hypotension as well as current sepsis. 2. Sepsis due to underlying clostridium difficile colitis, now status post colectomy with an ileostomy. 3. Leukocytosis secondary to clostridium difficile colitis. 4. Metabolic acidosis. 5. Hypocalcemia. PLAN: At this time, her urine output has decreased tremendously. I feel that she will likely need dialysis at some point, but her electrolytes are stable at this time. I will discontinue the LR, put her on D5 with three amps of sodium bicarbonate drip due to her underlying acidosis. We will replace calcium as well. Get a.m. labs. We will continue to monitor her closely. Like I said, she may end up needing dialysis, that she likely developed ATN during surgery. MD ALONA Khanna/MODL /[id number]
[2018-08-10] MEDS ORDERED: SODIUM BICARBONATE 8.4% SYRING 150 ML in DEXTROSE 5% 1,000 ML IV SCH (20:00)
[2018-08-10] MEDS ORDERED: NOREPINEPHRINE INJ 4MG/4ML 8 MG in DEXTROSE 5% 250ML 250 ML IV PRN ×6 (20:30)
[2018-08-10] MEDS ORDERED: ALBUMIN 25% 25GM 100ML 0.25 GM/ML BTL IV ONE ×2 (20:30)
[2018-08-10] MEDS ORDERED: ALBUMIN 25% 12.5GM 50ML 200 ML IV ONE (20:36)
[2018-08-10] MEDS: TRAZODONE HCL 50 MG TAB PO SCH (20:52)
[2018-08-10] MEDS ORDERED: NOREPINEPHRINE 8 MG/D5W 250 ML 250 ML ONE (21:05)
[2018-08-10] MEDS ORDERED: ACETAMINOPHEN 1000 MG/100 ML IV ONE (21:15)
--- NOTE | 2018-08-10 21:34 | Progress Note ---
DATE: 08/10/2018 Cardiology Progress Note SUBJECTIVE: Had hemicolectomy and ileostomy done yesterday. Remains intubated and sedated. Blood pressure is borderline, but otherwise hemodynamically stable. OBJECTIVE: GENERAL: Elderly female, intubated and sedated. CARDIOVASCULAR: Regular rate and rhythm. No murmurs, rubs, or gallops. LUNGS: Coarse breath sounds at the bases. Clear to auscultation otherwise. ABDOMEN: Postsurgical dressing in place. INPATIENT MEDICATIONS: Reviewed. LABORATORY DATA: Reviewed. White count is now improved to 25. TELEMETRY: Reviewed. Remains in sinus rhythm. ASSESSMENT: 1. Atrial fibrillation with rapid ventricular response, currently in sinus rhythm. 2. 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 3. Acute kidney injury. 4. Hypertension. 5. Hyperlipidemia. 6. Peripheral vascular disease. RECOMMENDATIONS: Continue holding all antihypertensives as blood pressure remains borderline postsurgically. Remains in sinus rhythm. We will continue to monitor on telemetry. If she has more episodes of atrial fibrillation postoperatively, I would start amiodarone drip. Thank you for this consult. We will continue to follow. MD LENNY Cedeno/BELEN /[id number]
[2018-08-10] MEDS: LATANOPROST(OPTH) 2.5 ML BTL OP SCH (21:58)
[2018-08-10] MEDS: DEXMEDETOMIDINE HCL 200 MCG in SODIUM CHLORIDE 0.9% 50ML 48 ML IV PRN (22:45)
[2018-08-11] VITALS (36 sets, daily range): BP systolic 91–147; BP diastolic 48–73
[2018-08-11] MEDS: VANCOMYCIN 250MG/5ML ORAL SOLN PO SCH ×4 (00:33→17:04)
[2018-08-11] MEDS ORDERED: DEXMEDETOMIDINE 200MCG/NS 50ML 50 ML IV ONE (02:19)
[2018-08-11] MEDS: VANCOMYCIN HCL 500 MG VIAL RC SCH ×4 (02:35→20:53)
[2018-08-11] MEDS: SODIUM CHLORIDE 0.9% 250ML IRRIG IR SCH ×4 (02:35→20:53)
[2018-08-11] MEDS: DEXMEDETOMIDINE HCL 200 MCG in SODIUM CHLORIDE 0.9% 50ML 48 ML IV PRN ×3 (03:43→23:30)
[2018-08-11] MEDS ORDERED: DEXTROSE 5% 1,000 ML, SODIUM BICARBONATE 8.4% SYRING 150 ML IV SCH ×2 (03:45)
[2018-08-11 04:03] LABS: BASOPHILS % 0.1 % (0.0-1.0); EOSINOPHILS # (AUTO) 0.1 (0.0-0.4); EOSINOPHILS % 0.4 % (0.0-6.0); HEMATOCRIT 24.7 % (34.2-44.1); HEMOGLOBIN 8.3 g/dL (12.0-16.0); LYMPHOCYTES # (AUTO) 1.1 (1.0-3.2); LYMPHOCYTES % 7.9 % (18.0-39.1); MEAN CORPUSCULAR HEMOGLOBIN 29.2 pg (28-32); MEAN CORPUSCULAR HGB CONC 33.6 g/dL (31-35); MONOCYTES # (AUTO) 0.9 (0.2-0.8); MONOCYTES % 6.5 % (4.4-11.3); NEUTROPHILS % 81.4 % (38.7-80.0); PLATELET COUNT 177 x10e3/uL (140-360); RED BLOOD COUNT 2.84 x10e6/uL (3.6-5.1); RED CELL DISTRIBUTION WIDTH 13.9 % (11.7-14.4)
[2018-08-11 04:28] LABS: ANION GAP 17.1 mmol/L (8-16); CREATININE, SERUM 4.03 mg/dL (0.57-1.11); MAGNESIUM 1.6 MG/DL (1.3-2.1); POTASSIUM 3.1 mmol/L (3.5-5.1)
[2018-08-11 04:40] LABS: CALCIUM 6.9 mg/dL (8.4-10.2)
[2018-08-11 05:01] LABS: BAND NEUTROPHILS % (MANUAL) 22 %; EOSINOPHILS % (MANUAL) 1 % (0-7); LYMPHOCYTES % (MANUAL) 4 % (19-48); MONOCYTES % (MANUAL) 6 % (3.4-9.0); NEUTROPHILS % (MANUAL) 67 % (40-74)
[2018-08-11 05:03] LABS: ANISOCYTOSIS SLIGHT; PLATELET ESTIMATE ADEQUATE; PLATELET MORPHOLOGY COMMENT NORMAL
[2018-08-11] MEDS: METRONIDAZOLE 500MG/NS 100ML 100 ML IV SCH ×3 (05:40→21:15)
--- NOTE | 2018-08-11 06:22 | Diagnostic Imaging Report ---
EXAMINATION: CHEST SINGLE (PORTABLE) INDICATION: Respiratory failure. COMPARISON: 08/10/2018 1:41 AM. FINDINGS: TUBES and LINES: Right neck central venous catheter with distal tip projected on the expected location of the cavoatrial junction. ET tube with distal tip well above the lisa, unchanged. NG/orogastric tube extends below the diaphragm, with distal most visualized portion of the left upper quadrant, however, with distal tip not included. LUNGS: Interval increase in density in the left lower hemithorax may be due to differences, or development of pleural effusion and atelectasis versus pneumonia. Right basilar subsegmental atelectatic again observed. Right basilar subsegmental atelectatic again observed. PLEURA: No pleural effusion or pneumothorax. HEART AND MEDIASTINUM: The cardiomediastinal silhouette is unremarkable. BONES AND SOFT TISSUES: No acute osseous lesion. UPPER ABDOMEN: No free air under the diaphragm. IMPRESSION: 1. Interval increase in density in the left lower hemithorax may be due to differences, or development of pleural effusion and atelectasis versus pneumonia. Right basilar subsegmental atelectatic again observed. 2. Stable tubes and lines in adequate position. Signed by: Dr. Edilma Cervantes M.D. on 08/11/2018 6:19 AM
[2018-08-11 06:32] LABS: ALBUMIN 2.1 g/dL (3.5-5.0)
[2018-08-11] MEDS ORDERED: CALCIUM GLUCONATE 10% INJ 9.3 MEQ in SODIUM CHLORIDE 0.9% 100 ML 100 ML IV ONE (06:45)
[2018-08-11] MEDS ORDERED: POTASSIUM CHLORIDE 20MEQ/100ML 200 ML IV ONE ×2 (06:45)
[2018-08-11 06:48] LABS: BILIRUBIN,DIRECT 0.2 mg/dL (0.0-0.5)
[2018-08-11] MEDS: FAMOTIDINE 20 MG/2 ML VIAL IV SCH ×2 (08:22→17:04)
[2018-08-11] MEDS ORDERED: SODIUM BICARBONATE 8.4% 150 ML in DEXTROSE 5% 1,000 ML IV SCH (14:00)
[2018-08-11] MEDS ORDERED: MAGNESIUM SULFATE 2GM/50ML 50 ML IV ONE (14:15)
[2018-08-11 14:23] LABS: ABG HCO3 25 mmol/L (23-28); ABG PCO2 30 mmHg (41-51); ABG PH 7.54 (7.31-7.41); ABG PO2 84 mmHg (80-105)
--- NOTE | 2018-08-11 15:53 | Progress Note ---
DATE: 08/11/2018 Pulmonary Critical Care Progress Note SUBJECTIVE: The patient required albumin last night because of hypotension. Her creatinine remains elevated, but she does have some increased urine output. She remains on assist-control ventilation. She is off sedation at this time, but is still not responding well. PHYSICAL EXAMINATION: VITAL SIGNS: The blood pressure is 137/65 and the saturation is 100%. She is on assist-control at rate of 14 with a tidal volume of 400. HEENT: Shows no facial swelling or erythema. There is an oral endotracheal tube in place. There is a right IJ line. The site looks clean. CARDIAC: Reveals a regular rate and rhythm with normal S1 and S2. There are no murmurs or rubs. LUNGS: Auscultation of lungs shows decreased breath sounds at the bases. There is no wheezing. ABDOMEN: Soft. Not tender. There is an ileostomy bag in place. EXTREMITIES: There is no leg edema or calf tenderness. There is no cyanosis or clubbing. SKIN: Shows no rashes. NEUROLOGIC: Shows the patient still be sedated. LABORATORY DATA: White blood cell count is down to 13.5 and hemoglobin is 8.3. The platelet count is 177. The BUN to creatinine ratio is 52-4.03 and the potassium is 3.1. IMPRESSION: 1. Clostridium difficile colitis with severe sepsis, present on admission. 2. Sokqs-vs-zyvxgxi renal failure. 3. Atrial fibrillation. 4. Metabolic acidosis. 5. Anemia, unspecified. PLAN: 1. Decreased minute ventilation and repeat ABG later today. 2. Continue to monitor urine output and give volume as needed. 3. Hold sedation to assess neurological stability. 4. Continue current antibiotic regimen. 5. DVT prophylaxis. 6. Contact isolation. 7. Case discussed with family, nursing staff, and Respiratory. Greater than 35 minutes in direct critical care time. Dashawn Barber MD [facility]/MODL /[id number]
[2018-08-11 17:00] LABS: ABG HCO3 24 mmol/L (23-28); ABG PCO2 31 mmHg (41-51); ABG PO2 83 mmHg (80-105)
[2018-08-11] MEDS: ACETAMINOPHEN 325 MG TAB PO PRN (17:04)
--- NOTE | 2018-08-11 18:14 | Progress Note ---
DATE: 08/11/2018 Nephrology Progress Note SUBJECTIVE: The patient is doing much better today, has good increased urine output that began early this morning. At this time, her blood pressure is much more stable, seems to be less likely to be ATN at this moment. LAB FINDINGS: Show white count 13.4, hemoglobin 8.3, hematocrit 24.7, and platelets of 177. Chemistry; sodium 133, potassium 3.1, chloride 99, bicarb 23, anion gap of 17, BUN is 52, creatinine is 4.03, glucose 150, calcium is 6.9, magnesium is 1.6, and albumin 2.1. Urine culture positive for Klebsiella. PHYSICAL EXAMINATION: VITAL SIGNS: Temperature is 98.9, but T-max is 101.4, pulse 89, respiratory rate is 14, blood pressure 137/69, and pulse ox 100% on mechanical ventilator, still intubated. GENERAL: In no acute distress. She is intubated and sedated. HEENT: Head is normocephalic and atraumatic. Eyes; Pupils are equal, round, and reactive to light bilaterally. Extraocular movements are intact bilaterally. Throat, no evidence of any erythema or exudates in the posterior pharynx. Has poor dentition. NECK: Supple. Good range of motion. PULMONARY: Clear to auscultation bilaterally. No wheezing, no rales, no rhonchi, and no crackles appreciated. CARDIOVASCULAR: Positive S1 and S2. No murmurs, rubs, or gallops appreciated. ABDOMEN: Soft, nondistended, and nontender to palpation. Bowel sounds are present. MUSCULOSKELETAL: Unable to assess, she is intubated and sedated. NEUROLOGIC: Intubated and sedated. SKIN: Intact. Warm to touch. Good cap refill. EXTREMITIES: No edema. Good range of motion throughout. IMPRESSION: 1. Acute kidney injury, likely secondary to acute tubular necrosis, now seems to be improving with increased urine output. 2. Sepsis due to Clostridium difficile colitis, now status post colectomy with ileostomy. 3. Leukocytosis secondary to Clostridium difficile colitis, improved. 4. Metabolic acidosis, improving. 5. Hypocalcemia. 6. Hypomagnesemia. PLAN: At this time, urine output is improving. Get a.m. labs. No indication for BED MACHINE OPERATOR at this time. Replace magnesium 2 g IV x1. Calcium corrected is above 8, we will continue to monitor very closely. At this time, I have talked to the family at bedside no indication for BED MACHINE OPERATOR at this time. Sodium bicarbonate drip has been discontinued. MD ALONA Khanna/BELEN /[id number]
--- NOTE | 2018-08-11 20:14 | Progress Note ---
DATE: 08/11/2018 Cardiology Progress Note SUBJECTIVE: No major events overnight. OBJECTIVE: VITAL SIGNS: Temperature 100.8, pulse 95, respiratory rate 14, blood pressure 138/68, and saturating 100% on mechanical ventilation. GENERAL: Elderly female, in no acute distress, intubated, sedated. CARDIOVASCULAR: Regular rate and rhythm. No murmurs, rubs, or gallops. LUNGS: Clear to auscultation anteriorly. ABDOMEN: Postsurgical dressing in place. INPATIENT MEDICATIONS: Reviewed. LABORATORY DATA: Reviewed. TELEMETRY DATA: Reviewed. Remains in sinus rhythm. ASSESSMENT AND PLAN: 1. Atrial fibrillation with rapid ventricular response, currently in sinus rhythm. 2. 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 3. Acute kidney injury. 4. Hypertension. 5. Hyperlipidemia. 6. Peripheral vascular disease. RECOMMENDATION: Continue holding antihypertensives one more day. Blood pressure continues to improve. Remains in sinus rhythm. No anticoagulation at this time given recent surgery. Thank you for this consult. We will continue to follow. MD LENNY Cedeno/BELEN /[id number]
[2018-08-11] MEDS: TRAZODONE HCL 50 MG TAB PO SCH (21:00)
[2018-08-11] MEDS: LATANOPROST(OPTH) 2.5 ML BTL OP SCH (21:15)
[2018-08-12] VITALS (24 sets, daily range): BP systolic 108–178; BP diastolic 61–98
[2018-08-12] MEDS: VANCOMYCIN 250MG/5ML ORAL SOLN PO SCH ×4 (00:30→18:15)
[2018-08-12] MEDS: VANCOMYCIN HCL 500 MG VIAL RC SCH ×4 (02:15→20:33)
[2018-08-12] MEDS: SODIUM CHLORIDE 0.9% 250ML IRRIG IR SCH ×4 (02:15→20:33)
[2018-08-12] MEDS: DEXMEDETOMIDINE HCL 200 MCG in SODIUM CHLORIDE 0.9% 50ML 48 ML IV PRN (04:00)
[2018-08-12] MEDS ORDERED: SODIUM CHLORIDE 0.9% 250ML 250 ML ONE (04:11)
[2018-08-12 05:24] LABS: BASOPHILS % 0.2 % (0.0-1.0); EOSINOPHILS % 0.3 % (0.0-6.0); HEMATOCRIT 31.1 % (34.2-44.1); HEMOGLOBIN 10.2 g/dL (12.0-16.0); LYMPHOCYTES # (AUTO) 1.3 (1.0-3.2); LYMPHOCYTES % 8.7 % (18.0-39.1); MEAN CORPUSCULAR HEMOGLOBIN 29.1 pg (28-32); MEAN CORPUSCULAR HGB CONC 32.8 g/dL (31-35); MEAN CORPUSCULAR VOLUME 88.6 fL (81-99); MONOCYTES % 6.9 % (4.4-11.3); NEUTROPHILS # (AUTO) 11.8 (2.1-6.9); PLATELET COUNT 207 x10e3/uL (140-360); RED BLOOD COUNT 3.51 x10e6/uL (3.6-5.1); RED CELL DISTRIBUTION WIDTH 14.1 % (11.7-14.4)
[2018-08-12] MEDS: METRONIDAZOLE 500MG/NS 100ML 100 ML IV SCH ×3 (05:31→22:08)
[2018-08-12 05:39] LABS: IRON 19 ug/dL (50-170); TRANSFERRIN < 70 mg/dL (180-382)
[2018-08-12 05:52] LABS: ALBUMIN 1.8 g/dL (3.5-5.0); CALCIUM 7.5 mg/dL (8.4-10.2); CREATININE, SERUM 3.31 mg/dL (0.57-1.11)
[2018-08-12 06:06] LABS: FERRITIN > 2000.00 ng/mL (4.63-204.00)
[2018-08-12 06:09] LABS: ALBUMIN/GLOBULIN RATIO 0.6 (0.8-2.0)
--- NOTE | 2018-08-12 06:50 | Diagnostic Imaging Report ---
EXAMINATION: CHEST SINGLE (PORTABLE) INDICATION: Sepsis. COMPARISON: 08/11/18 at 5:32 AM hours. FINDINGS: TUBES and LINES: Right neck central venous catheter, ET tube and NG/orogastric tube again observed and appear unchanged in position. LUNGS: No interval change in patchy density in the lower lobes. PLEURA: No pneumothorax. Probable small left pleural effusion. HEART AND MEDIASTINUM: The cardiac silhouette remains enlarged. BONES AND SOFT TISSUES: No acute osseous lesion. UPPER ABDOMEN: No free air under the diaphragm. IMPRESSION: 1. Stable examination. 2. Stable tubes and lines in unchanged position. Signed by: Dr. Edilma Cervantes M.D. on 08/12/2018 6:47 AM
[2018-08-12 07:21] LABS: FOLATE 12.4 ng/mL (7.0-15.4)
[2018-08-12] MEDS: FAMOTIDINE 20 MG/2 ML VIAL IV SCH ×2 (09:05→18:15)
[2018-08-12 09:12] LABS: ABG HCO3 26 mmol/L (23-28); ABG PCO2 34 mmHg (41-51); ABG PO2 117 mmHg (80-105)
[2018-08-12] MEDS: PROMETHAZINE 12.5MG/ NACL 0.9% 12.5 MG/50 ML BAG IV PRN ×2 (13:30→13:54)
--- NOTE | 2018-08-12 14:36 | Progress Note ---
DATE: 08/12/2018 Cardiology Progress Note SUBJECTIVE: No major events overnight, remains intubated, but awake and alert, responding to commands. OBJECTIVE: VITAL SIGNS: Temperature afebrile, pulse 88, respiratory rate 19, blood pressure 139/98, saturating 98% on mechanical ventilation. GENERAL: Elderly female, in no acute distress. CARDIOVASCULAR: Regular rate and rhythm. No murmurs, rubs, or gallops. LUNGS: Clear to auscultation bilaterally. ABDOMEN: Soft, nontender, nondistended. Surgical dressing in place. NEURO AND PSYCH: Intubated, but awake and alert, responding to commands. INPATIENT MEDICATIONS: Reviewed. LABORATORY DATA: Reviewed. TELEMETRY DATA: Reviewed, remains in sinus rhythm. ASSESSMENT AND PLAN: 1. Atrial fibrillation with rapid ventricular response, currently in sinus rhythm. 2. 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 3. Acute kidney injury. 4. Hypertension. 5. Hyperlipidemia. 6. Peripheral vascular disease. RECOMMENDATIONS: Remains hemodynamically stable. We will continue to monitor. Continue supportive care. MD ORLANDO CedenoP/YENYL /[id number]
--- NOTE | 2018-08-12 17:07 | Progress Note ---
DATE: 08/12/2018 Pulmonary Critical Care Progress Note SUBJECTIVE: The patient remained intubated overnight. She remained on Precedex. The patient has increased urine output this morning and has urinated 350 mL so far the shift. She had some vomiting with some bilious vomit. She required an NG tube. PHYSICAL EXAMINATION: VITAL SIGNS: The patient is afebrile. The blood pressure is 139/98 and respiratory rate is 19. She is on an assist-control mode of ventilation. NECK: There is a right IJ line in place. The site looks clean. There is no drainage. CARDIAC: Reveals a regular rate and rhythm with normal S1, S2. LUNGS: Auscultation of lungs shows decreased breath sounds at bases. There is no wheezing. ABDOMEN: Mildly distended, but less so than yesterday. There is an ileostomy bag in place. There is 1+ leg edema. LABORATORY DATA: White blood cell count is 14.8 and hemoglobin is 10.2. The platelet count is 207. The BUN to creatinine ratio is 48 to 3.3. The other electrolytes are within normal limits. The blood gas is 7.5, 34, 117, and 26. IMPRESSION: 1. Clostridium difficile colitis with severe sepsis, present on admission. 2. Acute on chronic renal failure. 3. Atrial fibrillation. 4. Anemia. 5. Metabolic acidosis. PLAN: 1. Spontaneous breathing trial with a goal of extubation today. 2. Continue to monitor urine output and creatinine. 3. Continue current antibiotics. 4. DVT prophylaxis. 5. Contact isolation. 6. Case discussed with nursing, family, and Manoj Nava NP with Dr. Newton. Greater than 35 minutes in direct critical care time during the several visits throughout the day. Dashawn Barber MD [facility] /[id number]
--- NOTE | 2018-08-12 18:23 | Progress Note ---
DATE: 08/12/2018 Nephrology Progress Note SUBJECTIVE: The patient is doing very well today with no other issues. Urine output is improving. She is extubated. No overnight events. PHYSICAL EXAMINATION: VITAL SIGNS: She is afebrile. Pulse 84, respiratory rate is 14, blood pressure 139/98, she is on nasal cannula. She is on a mechanical ventilator. She got extubated already this afternoon. GENERAL: In no acute distress, alert and oriented x3, cooperative on examination. HEENT: Head is normocephalic and atraumatic. Eyes; Pupils are equal, round, and reactive to light bilaterally. Extraocular movements are intact bilaterally. Throat, no evidence of any erythema or exudates in the posterior pharynx. Has poor dentition. NECK: Supple. Good range of motion. PULMONARY: Clear to auscultation bilaterally. No wheezing, no rales, no rhonchi, and no crackles appreciated. CARDIOVASCULAR: Positive S1 and S2. No murmurs, rubs, or gallops appreciated. ABDOMEN: Soft, nondistended, and nontender to palpation. Bowel sounds are present. MUSCULOSKELETAL: Strength is 5/5 throughout. No evidence of any muscle deficits on examination. No weakness appreciated. NEUROLOGIC: Cranial nerves II through XII grossly intact on exam. SKIN: Intact. Warm to touch. Good cap refill. PSYCHIATRIC: Normal affect and mood. EXTREMITIES: No edema. Good range of motion throughout. LABORATORY DATA: White count 14.7, hemoglobin 10.2, hematocrit 31 platelets of 207. Chemistry; sodium 136, potassium 4, chloride 100, bicarbonate is 26, anion gap of 14, BUN 48, creatinine is 3.3, glucose is 108, calcium is 7.5. MICROBIOLOGY: Nothing new. Chest x-ray stable. IMPRESSION: 1. Acute kidney injury secondary to acute tubular necrosis, now improved with downtrending creatinine. 2. Sepsis secondary to Clostridium difficile colitis, now status post colectomy and ileostomy. 3. Leukocytosis secondary to Clostridium difficile colitis, improving. 4. Metabolic acidosis, improving. 5. Hypocalcemia. 6. Electrolyte abnormalities. PLAN: At this time, replace electrolytes accordingly. No need for DRYING ROOM OPERATOR at this time. Urine output is great. Creatinine is down trending and BUN as well. We will get a.m. labs and monitor very closely. Monitor urine output to make sure she does not get dehydrated as this patient is with post ATN with significant amount of diuresis and can get dehydrated. Otherwise, continue same plan of care. Monitor closely. MD ALONA Khanna/BELEN /[id number]
[2018-08-12] MEDS ORDERED: MORPHINE SULFATE 2 MG/ML SYR 1ML IV PRN (19:15)
[2018-08-12] MEDS ORDERED: MORPHINE SULFATE INJ 4 MG/ML INJ 1ML IV PRN (19:15)
[2018-08-12] MEDS ORDERED: MORPHINE SULFATE 5 MG/ML VIAL IV PRN (19:30)
[2018-08-12] MEDS: MORPHINE SULFATE INJ 4 MG/ML INJ 1ML IV PRN (19:45)
[2018-08-12 21:23] LABS: ABG HCO3 26 mmol/L (23-28); ABG PCO2 35 mmHg (41-51); ABG PH 7.49 (7.31-7.41); ABG PO2 105 mmHg (80-105)
[2018-08-12] MEDS: TRAZODONE HCL 50 MG TAB PO SCH (22:08)
[2018-08-12] MEDS: LATANOPROST(OPTH) 2.5 ML BTL OP SCH (22:08)
[2018-08-12] MEDS: ONDANSETRON HCL INJ 2MG/ML 2ML 2 MG/ML VIAL IV PRN (23:22)
[2018-08-12] MEDS: ALPRAZOLAM 0.25 MG TAB PO PRN (23:22)
[2018-08-13] VITALS (23 sets, daily range): BP systolic 123–165; BP diastolic 70–94
[2018-08-13] MEDS: VANCOMYCIN 250MG/5ML ORAL SOLN PO SCH ×4 (00:46→17:00)
[2018-08-13] MEDS: MORPHINE SULFATE INJ 4 MG/ML INJ 1ML IV PRN ×4 (01:01→21:59)
[2018-08-13] MEDS: VANCOMYCIN HCL 500 MG VIAL RC SCH ×2 (02:38→02:50)
[2018-08-13] MEDS: SODIUM CHLORIDE 0.9% 250ML IRRIG IR SCH ×4 (02:38→20:00)
--- NOTE | 2018-08-13 02:50 | NUR ---
Known small capacity to the rectum with the vancomycin per rectal, which had been reported as "use caution" per Dr Sloan when giving. Dr Pemberton has clarified there is only a pouch to rectum with the new surgical wound. Will need to clarify per rectal vancomycin as ordered by infectious disease.
[2018-08-13] MEDS ORDERED: AMIODARONE HCL 360MG 200 ML IV SCH ×4 (03:45→09:45)
[2018-08-13] MEDS ORDERED: AMIODARONE HCL 150MG 100 ML IV SCH (03:45)
--- NOTE | 2018-08-13 03:45 | NUR ---
Pt has gone into Afib with rate 120-130. BP 144/97. Callled to Dr Klever Olivares. Orders for amiodarone bolus and drip received.
[2018-08-13] MEDS ORDERED: AMIODARONE 900MG 500 ML IV ONE (03:56)
[2018-08-13] MEDS ORDERED: AMIODARONE HCL 100 ML IV ONE (03:56)
[2018-08-13 04:08] LABS: BASOPHILS % 0.2 % (0.0-1.0); EOSINOPHILS % 0.2 % (0.0-6.0); HEMATOCRIT 32.2 % (34.2-44.1); HEMOGLOBIN 10.6 g/dL (12.0-16.0); LYMPHOCYTES # (AUTO) 1.3 (1.0-3.2); LYMPHOCYTES % 10.2 % (18.0-39.1); MEAN CORPUSCULAR HEMOGLOBIN 29.4 pg (28-32); MEAN CORPUSCULAR HGB CONC 32.9 g/dL (31-35); MEAN CORPUSCULAR VOLUME 89.2 fL (81-99); MONOCYTES # (AUTO) 1.3 (0.2-0.8); MONOCYTES % 10.1 % (4.4-11.3); NEUTROPHILS # (AUTO) 10.1 (2.1-6.9); NEUTROPHILS % 76.7 % (38.7-80.0); PLATELET COUNT 223 x10e3/uL (140-360); RED BLOOD COUNT 3.61 x10e6/uL (3.6-5.1); RED CELL DISTRIBUTION WIDTH 14.3 % (11.7-14.4)
[2018-08-13 04:31] LABS: ALBUMIN 1.7 g/dL (3.5-5.0); ALBUMIN/GLOBULIN RATIO 0.6 (0.8-2.0); CALCIUM 7.6 mg/dL (8.4-10.2); CREATININE, SERUM 2.84 mg/dL (0.57-1.11)
[2018-08-13 04:55] LABS: MAGNESIUM 2.2 MG/DL (1.3-2.1); PHOSPHORUS 4.8 MG/DL (2.3-4.7)
[2018-08-13] MEDS: METRONIDAZOLE 500MG/NS 100ML 100 ML IV SCH ×3 (05:14→21:59)
[2018-08-13] MEDS: ONDANSETRON HCL INJ 2MG/ML 2ML 2 MG/ML VIAL IV PRN (06:06)
--- NOTE | 2018-08-13 06:53 | Diagnostic Imaging Report ---
EXAMINATION: CHEST SINGLE (PORTABLE) INDICATION: ^Resp Failure ^[id number] ^[id number] COMPARISON: 08/12/2018 FINDINGS: AP view TUBES and LINES: Stable nasogastric tube and right internal jugular central line. LUNGS and pleura: Several external leads overlie the patient, limiting evaluation. Low lung volumes. Unchanged central pulmonary vascular congestion and small left pleural effusion. No pneumothorax. HEART AND MEDIASTINUM: The cardiac silhouette is prominent on this AP view. BONES AND SOFT TISSUES: No acute osseous lesion. Soft tissues are unremarkable. UPPER ABDOMEN: No free air under the diaphragm. IMPRESSION: Limited as above. Unchanged Central pulmonary vascular congestion and small left pleural effusion. Underlying left base atelectasis/pneumonia cannot be excluded. Signed by: Dr. Edgardo Darden MD on 08/13/2018 6:50 AM
--- NOTE | 2018-08-13 07:08 | NUR ---
Pt converted back to SR at this time. BP 141/79. will continue Amiodarone drip and to monitor
[2018-08-13] MEDS: FAMOTIDINE 20 MG/2 ML VIAL IV SCH ×2 (09:59→18:25)
[2018-08-13] MEDS: ACETAMINOPHEN 325 MG TAB PO PRN (12:00)
--- NOTE | 2018-08-13 15:36 | NUR ---
Nutrition Intervention Note RD Recommendation(s) for Physician: -Current standard central PN @50mL/hr (30% dextrose, 10% AA)with 25g lipids MWF, providing 948kcal, 180g dextrose, 60g protein, 1200mL total volume -If no sign of refeeding syndrome after 48hr of TPN administration, consider increasing dextrose to 250 g/day to more adequately meet kcal needs. -BMP, Phos, Mag repeat daily; prealbumin, LFT, TG monitor weekly -BG check every 6 hr with corrective dose insulin -Continue with TPN per MD until diet is advanced and intake >50% Plan of Care: RD following, monitoring for tolerance and adequacy, TPN Nutrition reason for involvement: NPO x [address] Assessment 08/13 83yo F, who was admitted for C diff and abdominal distention. 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 NPO x 5 days since admission. S/p subtotal colectomy with ileostomy on 08/09. POD 4. Pt was extubated yesterday. NGT to suction with ~250mL of dark drainage. Visited pt in the room. Pt complained of thirstiness and wanted to eat. Flatus present. No complains of nausea. Discussed case with Dr. Oliver; he was agreeable with the initiation of PN as her ileostomy was not ready to use yet. Dr. Mendoza has placed a PN order to start tonight. Will continue to monitor and follow. Principal Problems/Diagnoses: 1. Acute kidney injury secondary to acute tubular necrosis, now improved with downtrending creatinine. 2. Sepsis secondary to Clostridium difficile colitis, now status post colectomy and ileostomy. 3. Leukocytosis secondary to Clostridium difficile colitis, improving. 4. Metabolic acidosis, improving. PMH: Hypertension, anxiety, peripheral neuropathy, hyperlipidemia. GI: abdomen soft, large, tender Skin: surgical incision on abdomen Labs: (08/13) BUN 49 H, Creatinine 2.84 H, calcium 7.6 L, phos 4.8 H, Mg 2.2 H Meds: (08/13) morphine, vancomycin, pepcid, zofran Ht: 61in Wt: 150lb (per family) BMI: 28.3kg/m2 IBW: 105lb Malnutrition Evaluation (08/13/2018) The patient does not meet criteria for a specified degree of malnutrition at this time. Will re-evaluate at follow-up as appropriate. Energy intake: <75% of estimated energy requirements for >7 days Weight loss: Unable to determine #lbs Fat loss: None Muscle loss: None Supporting Evidence: Fluid accumulation: mild Functional Status: no changes Nutrition Prescription (Diet Order): NPO Estimated Nutritional Needs: Calories: 1700 2040kcal(25-30kcal/kg/d) Weight used: current BW Protein: 54 82g (0.8-1.2g/kg/d) Weight used: current BW Diet Adequacy: Not meeting calorie needs, Not meeting protein needs Diet Education Needs Assessment: Diet education indicated, but patient not appropriate for education at this time. Nutrition Care Level: high Nutrition Diagnosis: Inadequate oral intake related to current medical status as evidenced by pt requiring PN as main source of nutrition. Goal: Patient will meet 75-100% of estimated needs by follow up Progress: N/A Interventions: Composition, Rate, Route, IVF, Prescription medications Monitoring/Evaluation: Total energy intake, Total protein intake, Formula/Solution, IVF, Prescription medication, Weight change Signed: Winifred Barajas, MS, RD, LD
--- NOTE | 2018-08-13 17:33 | Progress Note ---
DATE: 08/13/2018 Cardiology Progress Note SUBJECTIVE: No major events overnight. OBJECTIVE: VITAL SIGNS: Temperature afebrile, pulse 78, respiratory rate 18, blood pressure 141/79, and saturating 98% on nasal cannula. GENERAL: Elderly female, in no acute distress. CARDIOVASCULAR: Regular rate and rhythm. No murmurs, rubs, or gallops. LUNGS: Coarse breath sounds at the bases, otherwise clear to auscultation. ABDOMEN: Soft, nontender, and nondistended. NEUROLOGIC AND PSYCHIATRIC: Now extubated, awake, alert. INPATIENT MEDICATIONS: Reviewed. LABORATORY DATA: Reviewed. TELEMETRY DATA: Reviewed. Remains in normal sinus rhythm. ASSESSMENT: 1. Atrial fibrillation with rapid ventricular response, currently in sinus rhythm. 2. Severe Clostridium difficile colitis, status post partial colectomy. 3. Acute kidney injury. 4. Hypertension. 5. Hyperlipidemia. 6. Peripheral vascular disease. RECOMMENDATIONS: Remains hemodynamically stable. We will continue to monitor. Continue supportive care. No anticoagulation for now given recent surgery. Thank you for this consult. We will continue to follow. MD LENNY Cedeno/BELEN /[id number]
--- NOTE | 2018-08-13 19:28 | Progress Note ---
DATE: 08/13/2018 SUBJECTIVE: The patient was extubated yesterday. She is urinating better. She taking sips of clears. PHYSICAL EXAMINATION: VITAL SIGNS: The blood pressure is 141/79 and the pulse is 78. The respiratory rate is 18. Saturation is 98% on 2 L. HEENT: Shows no facial swelling or erythema. LYMPHATIC: Shows no submandibular, cervical, or supraclavicular adenopathy. CARDIAC: Reveals regular rate and rhythm with normal S1, S2. There are no murmurs or rubs. LUNGS: Auscultation of lungs reveals clear breath sounds bilaterally. There is no wheezing. ABDOMEN: Soft and nontender. There is less distention. EXTREMITIES: There is no leg edema. IMPRESSION: 1. Clostridium difficile colitis with severe sepsis, present on admission. 2. Otxqm-ah-xnakffh renal failure. 3. Atrial fibrillation. 4. Anemia. 5. Metabolic acidosis. PLAN: 1. Continue antibiotics. 2. Continue to monitor creatinine and urine output. 3. Advance diet as tolerated. 4. Out of bed. 5. Physical therapy. Dashawn Barber MD [facility]/MODL /[id number]
--- NOTE | 2018-08-13 19:48 | Progress Note ---
DATE: 08/13/2018 Nephrology Progress Note SUBJECTIVE: The patient is doing well today . PHYSICAL EXAMINATION: VITAL SIGNS: She is afebrile, pulse 78, respiratory rate 18, blood pressure , and pulse ox 98% on 2 L nasal cannula, still has an NG tube. GENERAL: In no acute distress, alert and oriented x3, cooperative on examination. HEENT: Head is normocephalic and atraumatic. Eyes; Pupils are equal, round, and reactive to light bilaterally. Extraocular movements are intact bilaterally. Throat, no evidence of any erythema or exudates in the posterior pharynx. Has poor dentition. NECK: Supple. Good range of motion. PULMONARY: Clear to auscultation bilaterally. No wheezing, no rales, no rhonchi, and no crackles appreciated. CARDIOVASCULAR: Positive S1 and S2. No murmurs, rubs, or gallops appreciated. ABDOMEN: Soft, nondistended, and nontender to palpation. Bowel sounds are present. MUSCULOSKELETAL: Strength is 5/5 throughout. No evidence of any muscle deficits on examination. No weakness appreciated. NEUROLOGIC: Cranial nerves II through XII grossly intact. No evidence of any neurological deficits on exam. SKIN: Intact. Warm to touch. Good cap refill. PSYCHIATRIC: Normal affect and mood. EXTREMITIES: No edema. Good range of motion throughout. LABORATORY DATA: Labs show white count 13, hemoglobin 10.6, hematocrit 32, and platelets of 223. Chemistry; sodium 140, potassium 4, chloride 103, bicarb 26, anion gap of 15, BUN is 49, creatinine 2.8, magnesium 2.8, phosphorus is 4.8. MICROBIOLOGY: Stool cultures negative. Urine culture showed Klebsiella pneumoniae. Blood cultures negative. IMPRESSION: 1. Acute kidney injury secondary to acute tubular necrosis, now improved with downtrending creatinine. 2. Sepsis secondary to Clostridium difficile colitis, status post colectomy and ileostomy. 3. Leukocytosis secondary to Clostridium difficile colitis, improving. 4. Metabolic acidosis, improving. 5. Hypocalcemia. 6. Electrolyte abnormalities. PLAN: Creatinine is improving tremendously. Urine output is great. Get a.m. labs. Continue with IV fluids to avoid dehydration. She is started on ice chips and just sips of water. we will continue same plan of care and monitor closely. MD ALONA Khanna/BELEN /[id number]
[2018-08-13] MEDS ORDERED: CENTRAL TPN FORMULA 1 BAG IV SCH (20:00)
[2018-08-13] MEDS ORDERED: ALPRAZOLAM 0.25 MG TAB PO PRN ×2 (21:00→23:15)
[2018-08-13] MEDS ORDERED: TRAZODONE HCL 50 MG TAB PO SCH (21:00)
[2018-08-13] MEDS ORDERED: ALPRAZOLAM 1 MG TAB PO PRN (21:00)
[2018-08-13] MEDS: LATANOPROST(OPTH) 2.5 ML BTL OP SCH (21:31)
[2018-08-13] MEDS: AMIODARONE HCL 200 MG TAB PO SCH (21:58)
[2018-08-14] VITALS (28 sets, daily range): BP systolic 94–153; BP diastolic 49–118
[2018-08-14] MEDS: VANCOMYCIN 250MG/5ML ORAL SOLN PO SCH ×4 (00:53→18:00)
[2018-08-14] MEDS: SODIUM CHLORIDE 0.9% 250ML IRRIG IR SCH ×4 (01:00→20:00)
[2018-08-14] MEDS: MORPHINE SULFATE INJ 4 MG/ML INJ 1ML IV PRN (02:41)
[2018-08-14] MEDS: ONDANSETRON HCL INJ 2MG/ML 2ML 2 MG/ML VIAL IV PRN (02:42)
--- NOTE | 2018-08-14 03:02 | NUR ---
Called and spoke with Dr Oliver. Reported the following. Pt has removed her ngt and refuses for replacement. X2 nurses (one occitan speaking) and Dr Emerald Pemberton have expained the importance of the NG tube. Also, per order from Dr. Pemberton to DC the flexicele , was unable to remove the device. Dr Oliver has stated "that is fine, we will address in the morning".
[2018-08-14 05:41] LABS: BASOPHILS % 0.2 % (0.0-1.0); EOSINOPHILS % 0.2 % (0.0-6.0); HEMATOCRIT 33.8 % (34.2-44.1); HEMOGLOBIN 10.5 g/dL (12.0-16.0); LYMPHOCYTES # (AUTO) 1.4 (1.0-3.2); LYMPHOCYTES % 11.1 % (18.0-39.1); MEAN CORPUSCULAR HEMOGLOBIN 28.8 pg (28-32); MEAN CORPUSCULAR HGB CONC 31.1 g/dL (31-35); MEAN CORPUSCULAR VOLUME 92.6 fL (81-99); MONOCYTES # (AUTO) 1.4 (0.2-0.8); MONOCYTES % 10.6 % (4.4-11.3); NEUTROPHILS # (AUTO) 9.7 (2.1-6.9); NEUTROPHILS % 76.5 % (38.7-80.0); PLATELET COUNT 242 x10e3/uL (140-360); RED BLOOD COUNT 3.65 x10e6/uL (3.6-5.1); RED CELL DISTRIBUTION WIDTH 14.2 % (11.7-14.4)
[2018-08-14] MEDS: METRONIDAZOLE 500MG/NS 100ML 100 ML IV SCH ×3 (05:45→22:09)
[2018-08-14 05:53] LABS: ANION GAP 13.9 mmol/L (8-16); CALCIUM 7.7 mg/dL (8.4-10.2); CREATININE, SERUM 2.3 mg/dL (0.57-1.11); MAGNESIUM 2.1 MG/DL (1.3-2.1); PHOSPHORUS 4.2 MG/DL (2.3-4.7); POTASSIUM 3.9 mmol/L (3.5-5.1)
[2018-08-14] MEDS ORDERED: NOREPINEPHRINE 8 MG/D5W 250 ML 250 ML ONE (06:37)
[2018-08-14] MEDS ORDERED: DIATRIZOATE MEGL/DIATRIZOA SOD 30 ML BTL PO ONE (07:45)
[2018-08-14] MEDS ORDERED: LORAZEPAM INJ 2 MG/ML VIAL IV ONE (07:45)
--- NOTE | 2018-08-14 08:41 | Progress Note ---
DATE: 08/14/2018 Pulmonary Critical Care Progress Note SUBJECTIVE: The patient was more confused today. She required a dose of Ativan. The staff also had difficulty removing the rectal tube. She is scheduled to go for CT scan of the abdomen and pelvis. PHYSICAL EXAMINATION: VITAL SIGNS: The patient is afebrile, blood pressure is 124/68, and saturation is 98% on 2 L. HEENT: Shows no facial swelling or erythema. CARDIAC: Reveals regular rate and rhythm with normal S1, S2. There are no murmurs or rubs heard. LUNGS: Auscultation of lungs shows decreased breath sounds at the bases. There is no wheezing. ABDOMEN: Soft. There is less distention. There is no leg edema or calf tenderness. There is no cyanosis or clubbing. IMPRESSION: 1. Metabolic encephalopathy. 2. Acute on chronic renal failure. 3. Atrial fibrillation. 4. Clostridium difficile colitis with severe sepsis, present on admission. 5. Anemia. PLAN: 1. The patient will receive Haldol if necessary for agitation. 2. Stop Phenergan and morphine, which could be worsening metabolic encephalopathy. 3. Continue current antibiotics. 4. Continue tPA. 5. Monitor creatinine and blood counts. Dashawn Barber MD [facility]/MODL /[id number]
[2018-08-14] MEDS: AMIODARONE HCL 200 MG TAB PO SCH ×2 (09:00→20:42)
[2018-08-14] MEDS: FAMOTIDINE 20 MG/2 ML VIAL IV SCH ×2 (09:00→17:00)
--- NOTE | 2018-08-14 13:44 | NUR ---
DISCUSSED IN BARRIER ROUNDS, STARTED TPN, ON 3 LITERS OF O2 NASAL CANNULA, DRIP WAS DC'D VENT., PT PULLED NG TUBE, NPO, AFIB RVR, D/C FLEXISEAL, MIDLINE INCISION. BEGINNING TO HALLUCINATE.
[2018-08-14] MEDS ORDERED: OLANZAPINE 5 MG TAB PO PRN (14:00)
[2018-08-14] MEDS ORDERED: ALPRAZOLAM 0.5 MG TAB PO PRN (14:00)
[2018-08-14] MEDS ORDERED: HALOPERIDOL LACTATE 5 MG/ML VIAL IM PRN (14:00)
[2018-08-14] MEDS ORDERED: LORAZEPAM 0.5 MG TAB PO PRN (14:15)
[2018-08-14] MEDS ORDERED: AMIODARONE HCL 100 ML IV ONE (14:17)
[2018-08-14] MEDS ORDERED: DILTIAZEM HCL VIAL 5 ML ONE (14:42)
[2018-08-14] MEDS ORDERED: DILTIAZEM HCL 5 MG/ML 5 ML VIAL IV ONE (14:45)
[2018-08-14] MEDS ORDERED: DILTIAZEM HCL 125 ML IV SCH (14:45)
--- NOTE | 2018-08-14 14:52 | Progress Note ---
DATE: 08/14/2018 Nephrology Progress Note SUBJECTIVE: She is confused today on examination. Likely to have in-hospital delirium. PHYSICAL EXAMINATION: VITAL SIGNS: Temperature 97.7, pulse 120, respiratory rate is 24, blood pressure is 140/83, pulse ox 96% on 3 L nasal cannula. GENERAL: In no acute distress, alert and oriented x3, cooperative on examination. HEENT: Head is normocephalic and atraumatic. Eyes; Pupils are equal, round, and reactive to light bilaterally. Extraocular movements are intact bilaterally. Throat, no evidence of any erythema or exudates in the posterior pharynx. Has poor dentition. NECK: Supple. Good range of motion. PULMONARY: Clear to auscultation bilaterally. No wheezing, no rales, no rhonchi, and no crackles appreciated. CARDIOVASCULAR: Positive S1 and S2. No murmurs, rubs, or gallops appreciated. ABDOMEN: Soft, nondistended, and nontender to palpation. Bowel sounds are present. MUSCULOSKELETAL: Strength is 5/5 throughout. No evidence of any muscle deficits on examination. No weakness appreciated. NEUROLOGIC: Cranial nerves II through XII grossly intact. No evidence of any neurological deficits on exam. SKIN: Intact. Warm to touch. Good cap refill. PSYCHIATRIC: Currently confused. EXTREMITIES: No edema. Good range of motion throughout. LABORATORY DATA: Show white count 12.7, hemoglobin 10.5, hematocrit 34, platelets of 242. Chemistry; sodium 141, potassium is 3.9, chloride 105, bicarb 26, anion gap of 13, BUN 47, creatinine is 2.3. IMPRESSION: 1. Acute kidney injury secondary to acute tubular necrosis. 2. Clostridium difficile colitis, status post colectomy with underlying ileostomy. 3. Electrolyte abnormalities. PLAN: At this time good urine output. Monitor very closely. Continue with IV fluids to avoid dehydration. Electrolytes were replaced accordingly. Get a.m. labs. Monitor closely. MD ALONA Khanna/MODL /[id number]
[2018-08-14] MEDS ORDERED: DIGOXIN INJ 0.25 MG/ML 2 ML AMP ONE (15:16)
[2018-08-14] MEDS ORDERED: AMIODARONE HCL 900 MG in DEXTROSE 5% 500ML 500 ML IV STA (15:50)
[2018-08-14] MEDS ORDERED: AMIODARONE HCL 150 MG/100 ML BAG IV ONE (16:00)
[2018-08-14] MEDS: AMIODARONE HCL 900 MG in DEXTROSE 5 % 500ML BOTTLE 500 ML IV SCH (16:15)
--- NOTE | 2018-08-14 16:32 | Consultation ---
DATE OF CONSULTATION: 08/14/2018 Psychiatric Consultation. HISTORY OF PRESENT ILLNESS: The patient is evaluated and events noted. The patient is in the ICU. She is in isolation. She is alert, awake, and oriented to self, but not to place or year. She is very confused, but able to answer some questions, although at times inconsistent. She claims she is depressed and anxious, but unable to elaborate. She denies any suicidal ideation. She claims she is having hallucination. She unable to state this location or verbalize visual auditory. The patient is very restless at this time. She is moving around the bed. She claims she is sleeping fair. She is n.p.o. at this time. As per nursing staff, the patient had a fall at home. While she is here, she has been very anxious. She is getting Xanax and Ativan. She took 1 mg of Ativan today one time and it calmed her down. The patient also received Xanax p.r.n. However, patient is n.p.o. at this time. The patient pulled out NG tube last night. She did sleep well last night as per nursing staff. PAST PSYCHIATRIC HISTORY: The patient has history of depression, anxiety. She unable to provide further information. FAMILY HISTORY: Unknown. SOCIAL HISTORY: The patient lives in a halfway according to the nurse. MENTAL STATUS EXAM: The patient is elderly female. She is alert, awake. She is confused. She is very restless. Affect congruent with mood. She denies any suicidal or homicidal ideation. She claims she is having hallucinations. She is agitated and restless. Memory appears to be impaired. Insight and judgment are limited to impaired. CURRENT MEDICATIONS: 1. Amiodarone. 2. Metronidazole. 3. Norepinephrine. 4. Lipitor. 5. Pepcid. 6. Xalatan. 7. Metoprolol. 8. Procardia. 9. Ondansetron. 10. Zentel. 11. Sodium chloride. 12. Trazodone. 13. Vancomycin. CURRENT LAB: WBC 12.74, RBC 3.65, hemoglobin 10.5, hematocrit 33.8, platelets 242. Sodium 141, potassium 3.9, chloride 105, CO2 26, BUN 47, creatinine 2.30. ASSESSMENT: 1. Unspecified psychosis. 2. Rule out dementia. 3. History of depression, anxiety. PLAN: 1. Discontinue trazodone. 2. Add Haldol 1 mg IM q.6 hours p.r.n. for severe agitation. 3. Add Zyprexa 2.5 mg p.o. q.8 hours p.r.n. for agitation. 4. Add Ativan 0.5 mg p.o. q.6 hours p.r.n. for anxiety. 5. Add Ativan 0.5 mg IV q.8 hours p.r.n. for severe anxiety. 6. Monitor for agitation, anxiety. Dictated by Loree Cortez PA-C MD [facility]/YENYL /[id number]
[2018-08-14] MEDS: LATANOPROST(OPTH) 2.5 ML BTL OP SCH (20:41)
[2018-08-14] MEDS: CENTRAL TPN FORMULA 1 BAG IV SCH (20:41)
[2018-08-14] MEDS ORDERED: TRAZODONE HCL 50 MG TAB PO SCH (21:00)
[2018-08-14] MEDS: LORAZEPAM INJ 2 MG/ML VIAL IM PRN (22:27)
--- NOTE | 2018-08-14 22:48 | NUR ---
Patient complained of pressure on chest and chest pain, c/o some SOB. EKG showed ACUTE LA. Code STEMI called at [address] Olivares informed.
[2018-08-14 23:11] LABS: BASOPHILS % 0.1 % (0.0-1.0); EOSINOPHILS % 0.2 % (0.0-6.0); HEMATOCRIT 30.6 % (34.2-44.1); HEMOGLOBIN 9.8 g/dL (12.0-16.0); LYMPHOCYTES # (AUTO) 1.5 (1.0-3.2); LYMPHOCYTES % 9.9 % (18.0-39.1); MEAN CORPUSCULAR HEMOGLOBIN 29.3 pg (28-32); MEAN CORPUSCULAR VOLUME 91.6 fL (81-99); MONOCYTES # (AUTO) 1.5 (0.2-0.8); MONOCYTES % 9.8 % (4.4-11.3); NEUTROPHILS # (AUTO) 11.9 (2.1-6.9); NEUTROPHILS % 78.7 % (38.7-80.0); PLATELET COUNT 253 x10e3/uL (140-360); RED BLOOD COUNT 3.34 x10e6/uL (3.6-5.1); RED CELL DISTRIBUTION WIDTH 14.2 % (11.7-14.4)
[2018-08-14 23:28] LABS: ALBUMIN 1.6 g/dL (3.5-5.0); ALBUMIN/GLOBULIN RATIO 0.5 (0.8-2.0); ANION GAP 13.7 mmol/L (8-16); CALCIUM 7.6 mg/dL (8.4-10.2); CREATININE, SERUM 2.16 mg/dL (0.57-1.11); POTASSIUM 3.7 mmol/L (3.5-5.1)
[2018-08-14 23:34] LABS: CREATINE KINASE MB 25.2 ng/mL (0-5.0)
[2018-08-14] MEDS ORDERED: HEPARIN SOD/SOD CHLORIDE 2,000 ML ONE (23:43)
[2018-08-14] MEDS ORDERED: SODIUM CHLORIDE 0.9% 1000ML 1,000 ML ONE (23:43)
[2018-08-14] MEDS ORDERED: HEPARIN SOD (PORCINE) 1000 UNIT/ML 30ML ONE (23:43)
[2018-08-15] VITALS (23 sets, daily range): BP systolic 113–153; BP diastolic 57–115
[2018-08-15] MEDS ORDERED: MIDAZOLAM HCL 2 MG/2 ML VIAL ONE (00:04)
[2018-08-15] MEDS ORDERED: LIDOCAINE HCL 2% LOCAL 20 ML VIAL ONE (00:04)
[2018-08-15] MEDS ORDERED: FENTANYL CITRATE/PF 100MCG/2 ML INJ ONE (00:04)
[2018-08-15] MEDS ORDERED: IOPAMIDOL 370 MG/ML 200 ML INFUS..BTL INJ ONE (00:05)
[2018-08-15] MEDS ORDERED: NITROGLYCERIN/D5W 200 MCG/ML 0 ML ONE (00:22)
[2018-08-15] MEDS ORDERED: HEPARIN SOD (PORCINE) 5,000 UNIT/ML VIAL IV ONE (00:45)
[2018-08-15] MEDS ORDERED: HEPARIN 25,000 UNIT 700 UNIT in DEXTROSE 5% 250ML 250 ML IV SCH (00:45)
[2018-08-15] MEDS ORDERED: ASPIRIN 81 MG CHEW TAB PO ONE (00:45)
[2018-08-15] MEDS ORDERED: HEPARIN 25,000 UNIT DRIP IV ONE (01:03)
--- NOTE | 2018-08-15 01:05 | NUR ---
Patient returned from vp lab with no acute signs of distress. Dr. Olivares at bedside explaining procedure findings to patient's family.
[2018-08-15] MEDS: HEPARIN 25,000 UNIT 25,000 UNIT in DEXTROSE 5% 250ML 250 ML IV SCH ×2 (01:45→22:29)
[2018-08-15 01:52] LABS: INR 1.15; PROTHROMBIN TIME 15.3 seconds (11.9-14.5)
[2018-08-15 01:53] LABS: PARTIAL THROMBOPLASTIN TIME 31.6 seconds (23.8-35.5)
[2018-08-15] MEDS: SODIUM CHLORIDE 0.9% 250ML IRRIG IR SCH (02:00)
[2018-08-15] MEDS ORDERED: HEPARIN 25,000U/0.45% NS 250ML 250 ML IV SCH (02:00)
[2018-08-15 03:41] LABS: BASOPHILS % 0.1 % (0.0-1.0); EOSINOPHILS # (AUTO) 0.1 (0.0-0.4); EOSINOPHILS % 0.7 % (0.0-6.0); HEMATOCRIT 29.7 % (34.2-44.1); HEMOGLOBIN 9.5 g/dL (12.0-16.0); LYMPHOCYTES # (AUTO) 1.5 (1.0-3.2); LYMPHOCYTES % 9.3 % (18.0-39.1); MEAN CORPUSCULAR HEMOGLOBIN 29.3 pg (28-32); MEAN CORPUSCULAR VOLUME 91.7 fL (81-99); MONOCYTES # (AUTO) 1.4 (0.2-0.8); MONOCYTES % 8.4 % (4.4-11.3); NEUTROPHILS # (AUTO) 13.2 (2.1-6.9); NEUTROPHILS % 79.6 % (38.7-80.0); PLATELET COUNT 250 x10e3/uL (140-360); RED BLOOD COUNT 3.24 x10e6/uL (3.6-5.1); RED CELL DISTRIBUTION WIDTH 14.2 % (11.7-14.4)
[2018-08-15] MEDS: ONDANSETRON HCL INJ 2MG/ML 2ML 2 MG/ML VIAL IV PRN ×2 (03:52→09:31)
[2018-08-15 04:11] LABS: CREATINE KINASE MB 25.7 ng/mL (0-5.0)
[2018-08-15 04:24] LABS: ANION GAP 15.7 mmol/L (8-16); CALCIUM 7.4 mg/dL (8.4-10.2); CREATININE, SERUM 2.02 mg/dL (0.57-1.11); MAGNESIUM 2.3 MG/DL (1.3-2.1); POTASSIUM 3.7 mmol/L (3.5-5.1)
[2018-08-15] MEDS ORDERED: HEPARIN 25,000 UNIT 25,000 UNIT in DEXTROSE 5% 250ML 250 ML IV SCH (04:30)
[2018-08-15] MEDS: VANCOMYCIN 250MG/5ML ORAL SOLN PO SCH ×5 (05:00→23:58)
[2018-08-15] MEDS: METRONIDAZOLE 500MG/NS 100ML 100 ML IV SCH ×3 (06:05→22:13)
[2018-08-15] MEDS: METOPROLOL TARTRATE INJ 1 MG/ML VIAL IV SCH ×4 (06:05→23:58)
--- NOTE | 2018-08-15 06:17 | NUR ---
Left voicemail x [address] Newton @[phone], @[phone] regarding pain medication orders. Awaiting return call.
--- NOTE | 2018-08-15 06:21 | NUR ---
research laboratory manager team escorted patient off the unit for labor relations teacher procedure at 2340. Family at bedside and aware of patient condition and procedures/risks/benefits explained by Dr. Olivares.
[2018-08-15] MEDS: FAMOTIDINE 20 MG/2 ML VIAL IV SCH ×2 (06:39→17:05)
[2018-08-15] MEDS ORDERED: MORPHINE SULFATE INJ 4 MG/ML INJ 1ML IV PRN ×5 (06:45→10:45)
[2018-08-15] MEDS ORDERED: MORPHINE SULFATE 2 MG/ML SYR 1ML IV PRN ×3 (06:45→07:45)
--- NOTE | 2018-08-15 08:45 | Progress Note ---
DATE: 08/15/2018 Pulmonary Critical Care Progress Note SUBJECTIVE: The patient had elevated troponins and ST-segment elevation on her EKG yesterday. She went to the qc lab technician, but had no acute thrombosis. The patient now has some worsening abdominal distention. She notes some vomiting. She received Zofran. PHYSICAL EXAMINATION: VITAL SIGNS: The patient is afebrile, blood pressure is 135/74, pulse is 96, saturation is 100%, she is on 3 L. HEENT: Shows no facial swelling or erythema. CARDIAC: Reveals a regular rate and rhythm with a normal S1 and S2. There are no murmurs or rubs. LUNGS: Auscultation of lungs reveals rhonchorous breath sounds bilaterally. ABDOMEN: Distended. It is not tender. There is no leg edema or calf tenderness. LABORATORY DATA: White blood cell count is 16.6 and hemoglobin is 9.5, and platelet count is 250. Creatinine is 2.02. The other electrolytes are within normal limits. Troponin I is elevated at 19.6 and the BNP is elevated at 4100. IMPRESSION: 1. Clostridium difficile colitis with severe sepsis, present on admission. 2. Status post partial colectomy and ileostomy. 3. Acute renal failure secondary to acute tubular necrosis. 4. Atrial fibrillation with rapid ventricular response. 5. Myocardial infarction. 6. Moderate protein-calorie malnutrition. 7. Metabolic encephalopathy. PLAN: 1. Repeat abdominal x-ray. 2. Continue TPN. 3. Low-dose diuretics. 4. Continue current antibiotics. 5. Continue amiodarone. 6. Monitor renal function and blood counts. Dashawn Barber MD [facility]/MODL /[id number]
[2018-08-15] MEDS: AMIODARONE HCL 200 MG TAB PO SCH ×2 (09:00→21:00)
[2018-08-15] MEDS ORDERED: SODIUM CHLORIDE 0.9% 1000ML 1,000 ML ONE (10:43)
--- NOTE | 2018-08-15 11:30 | Diagnostic Imaging Report ---
Examination: Single AP view of the chest. COMPARISON: 08/13/2018 INDICATION: Follow-up respiratory failure DISCUSSION: Radiopaque pad projects over the midline mediastinum, limiting evaluation. Unchanged position of right internal jugular central venous catheter. Enteric tube has been removed. Lung volumes remain low with prominence of the pulmonary interstitium in a perihilar distribution, and suspected small left pleural effusion. No new consolidation. No acute osseous abnormality. IMPRESSION: Unchanged low lung volumes with pulmonary venous congestion and small left pleural effusion. Signed by: Dr. Murray Deng M.D. on 08/15/2018 11:27 AM
--- NOTE | 2018-08-15 11:38 | Diagnostic Imaging Report ---
Exam: Abdominal film Clinical History: Abdominal distention Comparison: Abdominal radiograph 08/10/2018, CT abdomen and pelvis 08/08/2018 DISCUSSION: Interval worsening distention of multiple small bowel loops relative to 08/10/2018, now measuring approximate 4.5 cm in maximum dimension. Gaseous distention of the stomach is also noted status post removal of enteric tube. Midline laparotomy edilberto. No mass effect or organomegaly. No inés pneumoperitoneum. Probable small left pleural effusion seen to better advantage on comparison chest radiograph. Incompletely healed fractures of the left superior and inferior pubic rami. IMPRESSION: Progression of gaseous distention of the stomach and small bowel status post enteric tube removal. Findings likely reflect persistent postoperative ileus. No inés pneumoperitoneum. Signed by: Dr. Murray Deng M.D. on 08/15/2018 11:35 AM
[2018-08-15] MEDS ORDERED: BENZOCAINE 20% SPR 60 ML CAN MT ONE (15:00)
[2018-08-15] MEDS: AMIODARONE HCL 900 MG in DEXTROSE 5 % 500ML BOTTLE 500 ML IV SCH ×2 (17:23→22:14)
--- NOTE | 2018-08-15 17:27 | NUR ---
Nutrition Follow-up Note RD Recommendation(s) for Physician: -Current standard central PN @50mL/hr (30% dextrose, 10% AA)with 25g lipids MWF, providing 948kcal, 180g dextrose, 60g protein, 1200mL total volume -Rec to draw Phos, Mg and BMP daily to monitor for refeeding syndrome; prealbumin, LFT, TG monitor weekly -When BG <180, consider increasing dextrose to 250 g/day to more adequately meet kcal needs. -BG check every 6 hr with corrective dose insulin -Continue with TPN per MD until diet is advanced and intake >50% Plan of Care: RD following, monitoring for tolerance and adequacy, TPN Nutrition reason for involvement: Follow up RD Assessment 08/15 Pt was discussed during AM rounds. Pt had elevated troponins and ST-segment elevation on her EKG yesterday. She went to the clinical lab specialist, but had no acute thrombosis. KUB revealed postoperative ileus. Pt complained of abdominal distention and vomiting. Zofran was given and NGT will be placed for suction. BG ~200. Na and K WNL. No phosphorus drawn today. Mg was elevated at 2.3. Will continue to monitor and follow. 08/13 83yo F, who was admitted for C diff and abdominal distention. Pt came in with nausea, vomiting and worsening diarrhea for 10 days VALIDATION INTERN. NPO x 5 days since admission. S/p subtotal colectomy with ileostomy on 08/09. POD 4. Pt was extubated yesterday. NGT to suction with ~250mL of dark drainage. Visited pt in the room. Pt complained of thirstiness and wanted to eat. Flatus present. No complains of nausea. Discussed case with Dr. Oliver; he was agreeable with the initiation of PN as her ileostomy was not ready to use yet. Dr. Mendoza has placed a PN order to start tonight. Will continue to monitor and follow. Principal Problems/Diagnoses: 1. Acute kidney injury secondary to acute tubular necrosis, now improved with downtrending creatinine. 2. Sepsis secondary to Clostridium difficile colitis, now status post colectomy and ileostomy. 3. Leukocytosis secondary to Clostridium difficile colitis, improving. 4. Metabolic acidosis, improving. PMH: Hypertension, anxiety, peripheral neuropathy, hyperlipidemia. GI: abdomen soft, large, tender Skin: surgical incision on abdomen Labs: (08/15) BUN 48 H, Creatinine 2.02 H, Glucose 203 H, Ca 7.4 L, Mg 2.3 H (08/13) BUN 49 H, Creatinine 2.84 H, calcium 7.6 L, phos 4.8 H, Mg 2.2 H Meds: pepcid, zofran, heparin Ht: 61in Wt: 150lb (per family) BMI: 28.3kg/m2 IBW: 105lb Malnutrition Evaluation (08/13/2018) The patient does not meet criteria for a specified degree of malnutrition at this time. Will re-evaluate at follow-up as appropriate. Energy intake: <75% of estimated energy requirements for >7 days Weight loss: Unable to determine #lbs Fat loss: None Muscle loss: None Supporting Evidence: Fluid accumulation: mild Functional Status: no changes Nutrition Prescription (Diet Order): NPO Estimated Nutritional Needs: Calories: 1700 2040kcal (25-30kcal/kg/d) Weight used: current BW Protein: 54 82g (0.8-1.2g/kg/d) Weight used: current BW Diet Adequacy: Not meeting calorie needs, Not meeting protein needs Diet Education Needs Assessment: Diet education indicated, but patient not appropriate for education at this time. Nutrition Care Level: high Nutrition Diagnosis: Inadequate oral intake related to current medical status as evidenced by pt requiring PN as main source of nutrition. Goal: Patient will meet 75-100% of estimated needs by follow up Progress: N/A Interventions: Composition, Rate, Route, IVF, Prescription medications Monitoring/Evaluation: Total energy intake, Total protein intake, Formula/Solution, IVF, Prescription medication, Weight change Signed: Winifred Barajas, MS, RD, LD
[2018-08-15] MEDS ORDERED: FUROSEMIDE INJ 10 MG/ML 4 ML VIAL IV SCH (17:30)
--- NOTE | 2018-08-15 19:59 | Progress Note ---
DATE: 08/15/2018 Cardiology Progress Note. SUBJECTIVE: The patient had coronary angiogram done yesterday evening due to elevated troponin and EKG changes, which showed [id number] plaquing without any obstructive coronary artery disease. No intervention was required. Today, she denies any chest pain. Reports abdominal distention, though mostly complaining about dry mouth and asking to drink water. OBJECTIVE: VITAL SIGNS: Temperature afebrile, pulse 96, respiratory rate 30, blood pressure 135/74, saturating 100% on nasal cannula. GENERAL: An elderly female, in mild distress. CARDIOVASCULAR: Irregular rate and rhythm. No murmurs, rubs, or gallops. Tachycardic. LUNGS: Coarse breath sounds at the bases, otherwise clear to auscultation. ABDOMEN: Soft, nontender, significantly distended. Ileostomy in place. NEURO AND PSYCH: Alert, awake, oriented x2. INPATIENT MEDICATIONS: Reviewed. LABORATORY DATA: Reviewed. TELEMETRY DATA: Reviewed. It shows atrial fibrillation with occasional RVR. ASSESSMENT AND PLAN: 1. Atrial fibrillation with rapid ventricular response. 2. Non-ST elevation myocardial infarction. 3. Acute systolic congestive heart failure, EF less than 25%. 4. Acute kidney injury. 5. Hypertension. 6. Hyperlipidemia. 7. Peripheral vascular disease. RECOMMENDATIONS: BNP is elevated. We will give a dose of 40 mg of IV Lasix to see if her respiratory status improves. Continue IV amiodarone. The patient is currently unable to take p.o. Continue IV heparin given the non-ST elevation LA and atrial fibrillation. Monitor closely for any signs of bleeding, given recent surgery. Thank you for this consult. We will continue to follow. MD LENNY Cedeno/BELEN /[id number]
--- NOTE | 2018-08-15 20:04 | Progress Note ---
DATE: 08/15/2018 Nephrology Progress Note SUBJECTIVE: The patient is still confused on examination. Last night, she apparently had an EKG consistent with standing, which the patient underwent a left heart catheterization and no PCI was performed. PHYSICAL EXAMINATION: VITAL SIGNS: Temperature is 97.7, pulse 107, respiratory rate is 30, blood pressure 142/73. GENERAL: Not in acute distress. She is alert and talkative, but not very consistent throughout. Cooperative on examination. HEENT: Head is normocephalic, atraumatic. Eyes; pupils are equal, round, and reactive to light bilaterally. Extraocular movements are intact bilaterally. Throat; no evidence of erythema or exudates in the posterior pharynx. Has poor dentition. NECK: Supple. Good range of motion. PULMONARY: Clear to auscultation bilaterally. No wheezing, no rales, no rhonchi, no crackles appreciated. CARDIOVASCULAR: Positive S1, S2. No murmurs, rubs, or gallops appreciated. ABDOMEN: Soft, nondistended, and nontender to palpation. Bowel sounds present. MUSCULOSKELETAL: Currently confused on exam. NEUROLOGIC: Cranial nerves II through XII grossly intact. SKIN: Intact. Warm to touch. Good cap refill. PSYCHIATRIC: Currently confused. EXTREMITIES: No edema. Good range of motion throughout. LABORATORY DATA: White count 16, hemoglobin 9.5, hematocrit is 29.7, platelets is 250. Sodium 143, potassium 3.6, chloride 107, bicarb 23, anion gap of 15, BUN 48, creatinine is 2.02. Cultures; urine cultures positive for Klebsiella pneumoniae. Blood cultures, no growth. Stool cultures final negative. IMAGING DATA: Abdominal x-ray shows evidence of a gas venous distention in the stomach. Chest x-ray showed unchanged. Low lung volumes with pulmonary congestion, small amount of fluid. IMPRESSION: 1. Acute kidney injury secondary to ATN, now resolved. 2. Clostridium difficile colitis, status post colectomy with underlying ileostomy. 3. Elevated troponin with ST-elevation myocardial infarction, status post left heart catheterization, no PCI needed. 4. Electrolyte abnormalities. PLAN: At this time, urine output seems to be good. Electrolytes are stable. Chemistry is good. Continue with IV fluids for hydration. It seems like her creatinine is roughly about 2 and that is her baseline. We will continue with same plan of care. Get morning labs. MD ALONA Khanna/BELEN /[id number]
--- NOTE | 2018-08-15 20:30 | NUR ---
Dr. Oliver called regarding NGT placement. is aware of multiple unsuccessful attempts to place NGT. Orders received to consult IR for NGT placement in AM. Clarified with MD that NGT should be to suction and to not give PO vanco or meds through NGT, only to suction.
[2018-08-15] MEDS: CENTRAL TPN FORMULA 1 BAG IV SCH (20:40)
[2018-08-15] MEDS ORDERED: OXYMETAZOLINE HCL 0.05% NAS 1 SPRAY BTL SCH (21:00)
[2018-08-15] MEDS: LORAZEPAM INJ 2 MG/ML VIAL IM PRN (21:03)
[2018-08-15] MEDS: LATANOPROST(OPTH) 2.5 ML BTL OP SCH (22:13)
--- NOTE | 2018-08-15 22:19 | NUR ---
Dr. Barber notified of pt c/o SOB, RR 35-38 bpm, and respiratory effort. Orders for albuterol nebs received. Updated MD on POC to consult IR for NGT placement in AM, which he states will help breathing by decompressing stomach.
[2018-08-15] MEDS ORDERED: ALBUTEROL SULF 0.083% NEB SOLN 3 ML NEB NEB PRN (22:30)
[2018-08-15] MEDS ORDERED: LEVALBUTEROL HCL SOLN NEBU 0.63 MG/3 ML NEB INH PRN (23:30)
--- NOTE | 2018-08-15 23:30 | NUR ---
Dr. Barber updated on patient's condition. notified of pt's RR 30-36 and respiratory effort. Order for Xopenex received d/t RT unable to give albuterol d/t elevated HR. No further orders received.
[2018-08-16] VITALS: BP 111/80
[2018-08-16 01:00] VITALS: BP 119/69
[2018-08-16 02:00] VITALS: BP 134/81
[2018-08-16] MEDS ORDERED: SODIUM BICARBONATE 8.4% SYRING 100 ML ONE (02:49)
[2018-08-16] MEDS ORDERED: EPINEPHRINE HCL SYRINGE ONE ×2 (02:51→17:41)
--- NOTE | 2018-08-16 03:50 | NUR ---
Abel Olivia LVN, drug and alcohol counsellor (Jessica RN), and self at bedside at 0253, witnessed respiratory/cardiac arrest. Code blue called at 0225, refer to Code Sheet.
[2018-08-16] MEDS ORDERED: SODIUM BICARBONATE 8.4% INJ 50 ML SYR ONE (17:41)
== END 2018-08-16 05:53 | disposition expired | DRG 853 ==
LOC: ER 12:14 → ERHOLD 14:45 → IMCU 16:23 → ICU 08-09 13:45
PROVIDERS: ADMIT Internal Medicine; ATTEND Internal Medicine
PROC: 0DBL0ZZ Excision of Transverse Colon, Open Approach (ICD-10-PCS; 2018-08-09)
PROC: 0DBP0ZZ Excision of Rectum, Open Approach (ICD-10-PCS; 2018-08-09)
PROC: 0D1B0Z4 Bypass Ileum to Cutaneous, Open Approach (ICD-10-PCS; 2018-08-09)
PROC: 0DBF0ZZ Excision of Right Large Intestine, Open Approach (ICD-10-PCS; 2018-08-09)
PROC: 0DBG0ZZ Excision of Left Large Intestine, Open Approach (ICD-10-PCS; principal; 2018-08-09 22:12)
PROC: 5A1945Z Respiratory Ventilation, 24-96 Consecutive Hours (ICD-10-PCS; 2018-08-10)
PROC: B2111ZZ Fluoroscopy of Multiple Coronary Arteries using Low Osmolar Contrast (ICD-10-PCS; 2018-08-14)
PROC: 5A02215 Assistance with Cardiac Output using Pulsatile Compression, Continuous (ICD-10-PCS; 2018-08-16)
DX: A41.9 Sepsis, unspecified organism (principal); N17.0 Acute kidney failure with tubular necrosis; G93.41 Metabolic encephalopathy; I21.3 ST elevation (STEMI) myocardial infarction of unspecified site; J96.00 Acute respiratory failure, unspecified whether with hypoxia or hypercapnia; I50.23 Acute on chronic systolic (congestive) heart failure; E43 Unspecified severe protein-calorie malnutrition; E87.2 Acidosis; A04.72 Enterocolitis due to Clostridium difficile, not specified as recurrent; M80.052A Age-related osteoporosis with current pathological fracture, left femur, initial encounter for fracture; N17.9 Acute kidney failure, unspecified; I13.0 Hypertensive heart and chronic kidney disease with heart failure and stage 1 through stage 4 chronic kidney disease, or unspecified chronic kidney disease; K56.7 Ileus, unspecified; E83.51 Hypocalcemia; E88.09 Other disorders of plasma-protein metabolism, not elsewhere classified; Z88.0 Allergy status to penicillin; Z88.8 Allergy status to other drugs, medicaments and biological substances; F41.9 Anxiety disorder, unspecified; G62.9 Polyneuropathy, unspecified; E78.5 Hyperlipidemia, unspecified; Z83.3 Family history of diabetes mellitus; Z82.49 Family history of ischemic heart disease and other diseases of the circulatory system; E86.0 Dehydration; I48.91 Unspecified atrial fibrillation; F29 Unspecified psychosis not due to a substance or known physiological condition; F03.90 Unspecified dementia, unspecified severity, without behavioral disturbance, psychotic disturbance, mood disturbance, and anxiety; R65.20 Severe sepsis without septic shock; B96.1 Klebsiella pneumoniae [K. pneumoniae] as the cause of diseases classified elsewhere; D64.9 Anemia, unspecified; E83.42 Hypomagnesemia; I11.0 Hypertensive heart disease with heart failure; Z82.3 Family history of stroke; Z80.9 Family history of malignant neoplasm, unspecified; G47.00 Insomnia, unspecified; E66.9 Obesity, unspecified; Z68.34 Body mass index [BMI] 34.0-34.9, adult; N18.3 Chronic kidney disease, stage 3 (moderate)
CPT/HCPCS: 36415; 36600; 71045; 74018; 74176; 80048; 80053; 80076; 81001; 82150; 82550; 82553; 82607; 82728; 82746; 82805; 83036; 83540; 83605; 83690; 83735; 83880; 84100; 84439; 84443; 84466; 84484; 85025; 85610; 85730; 87040; 87045; 87086; 87186; 87493; 88307; 92950; 93005; 93306; 93454; 94002; 94003; 94640; 96365; 99285; C1725; C1769; J0171; J0610; J1160; J1644; J1940; J2001; J2060; J2250; J2270; J2405; J2543; J2550; J3370; J3475; J3480; J7030; J7050; J7070; J7121; P9047; Q9967